=== PATIENT | male | born 1960 | race Hispanic/Latino ===

== ENCOUNTER 2016-10-31 23:20 | Inpatient (IN) | payer MEDICARE ==
[2016-11-01] MEDS ORDERED: ZOFRAN IV ONE (00:24)
[2016-11-01] MEDS ORDERED: PEPCID IV ONE (00:24)
[2016-11-01] MEDS ORDERED: APRESOLINE IV ONE (00:24)
[2016-11-01 00:26] LABS: Eosinophils % (Auto) 1.9 % (0.0-4.3); Hematocrit 48.3 % (35.5-45.6); Hemoglobin 16.3 gm/dl (11.8-15.2); Mean Corpuscular HGB Conc 34 % (32-34); Mean Corpuscular Hemoglobin 31 pg (28-32); Mean Corpuscular Volume 91 fl (84-94); Platelet Count 259 K/mm3 (140-440); Red Blood Count 5.31 M/mm3 (3.65-5.03); Red Cell Distribution Width 13.6 % (13.2-15.2); White Blood Count 8.1 K/mm3 (4.5-11.0)
[2016-11-01] MEDS ORDERED: NITROSTAT SL PRN (00:26)
--- NOTE | 2016-11-01 00:27 | Emergency Department Report ---
ED Chest Pain HPI - General Chief Complaint: Chest Pain Stated Complaint: CHEST PAIN Time Seen by Provider: 11/01/16 00:17 Source: patient, EMS (ems notes not available at time of chart dictation) Mode of arrival: Stretcher Limitations: No Limitations - History of Present Illness Initial Comments: Primary care real estate inspector: Sarah wisdom; Dr Baltazar Past medical history: Atrial fibrillation, heart disease, ischemic cardiomyopathy, high cholesterol, hypertension. Multiple stents. This is a 56-year-old male. He is previously unknown to me. He presents to the ER complaining of chest pain. The chest pain is central, involving the left upper extremity. Positive nausea, positive diaphoresis. It has mostly resolved. He reports compliance with medications. Reports a negative nuclear stress test December 2015. There is no leg pain. There is no leg swelling. No recent trips greater than 4 hours. No recent hospital admissions. No hematemesis. No bright red blood per rectum. No association with food. No recent stressful events. MD Complaint: chest pain -: Sudden Onset: during rest Pain Location: substernal Pain Radiation: LUE Severity: moderate Consistency: now resolved Improves With: nitroglycerin re: nausea Aspirin use within the Past 7 Days: (1) Yes - Related Data On Oral Contraceptives: No Home Medications Medication Instructions Recorded Confirmed Last Taken Aspirin [Aspirin TAB] 325 mg PO QDAY 11/01/16 11/01/16 10/31/16 Carvedilol [Coreg] 25 mg PO BID 11/01/16 11/01/16 10/31/16 Gemfibrozil [Lopid] 600 mg PO BID 11/01/16 11/01/16 10/31/16 Hydrochlorothiazide [HCTZ] 25 mg PO QDAY 11/01/16 11/01/16 10/31/16 ISOSORBIDE MONOnitrate [Imdur ER] 60 mg PO BID 11/01/16 11/01/16 10/31/16 Losartan [Cozaar] 50 mg PO QDAY 11/01/16 11/01/16 10/31/16 Niacin [Niaspan ER] 1,000 mg PO QHS 11/01/16 11/01/16 Unknown Nitroglycerin [Nitrostat] 0.4 mg SL Q5M PRN 11/01/16 11/01/16 10/31/16 [place]-3S/Dha/Epa/Fish Oil [[place]-3 1 each PO QDAY 11/01/16 11/01/16 10/31/16 Fish Oil 1,000 mg Sfgl] Simvastatin [Zocor TAB] 80 mg PO QHS 11/01/16 11/01/16 Unknown Sotalol HCl [Sotalol] 120 mg PO BID 11/01/16 11/01/16 10/31/16 Allergies Allergy/AdvReac Type Severity Reaction Status Date / Time clopidogrel bisulfate Allergy Rash Verified 06/23/13 11:46 [From Plavix] Sulfa (Sulfonamide Allergy Anaphylaxis Verified 06/23/13 11:47 Antibiotics) nitroglycerin AdvReac Dizziness Verified 06/23/13 11:47 PARAMJIT score - Paramjit Score Age > 65: (0) No Aspirin use within the Past 7 Days: (1) Yes 3 or more CAD Risk Factors: (1) Yes 2 or more Angina events in past 24 hrs: (0) No Known CAD with more than 50% Stenosis: (1) Yes Elevated Cardiac Markers: (0) No ST Deviation Greater than 0.5mm: (0) No PARAMJIT Score: 3 ED Review of Systems ROS: Stated complaint: CHEST PAIN Other details as noted in HPI Constitutional: diaphoresis, malaise Eyes: denies: vision change ENT: denies: epistaxis Respiratory: see HPI Cardiovascular: chest pain Gastrointestinal: denies: vomiting Genitourinary: denies: urgency, dysuria Musculoskeletal: denies: back pain Skin: denies: lesions Neurological: denies: headache, weakness Psychiatric: denies: anxiety ED Past Medical Hx - Past Medical History Hx Hypertension: Yes Hx Heart Attack/AMI: Yes - Surgical History Hx Coronary Stent: Yes (x6) Hx Pacemaker: Yes Hx Internal Defibrillator: Yes - Social History Smoking Status: Former Smoker Substance Use Type: None - Medications Home Medications: Home Medications Medication Instructions Recorded Confirmed Last Taken Type Aspirin [Aspirin TAB] 325 mg PO QDAY 11/01/16 11/01/16 10/31/16 History Carvedilol [Coreg] 25 mg PO BID 11/01/16 11/01/16 10/31/16 History Gemfibrozil [Lopid] 600 mg PO BID 11/01/16 11/01/16 10/31/16 History Hydrochlorothiazide [HCTZ] 25 mg PO QDAY 11/01/16 11/01/16 10/31/16 History ISOSORBIDE MONOnitrate [Imdur ER] 60 mg PO BID 11/01/16 11/01/16 10/31/16 History Losartan [Cozaar] 50 mg PO QDAY 11/01/16 11/01/16 10/31/16 History Niacin [Niaspan ER] 1,000 mg PO QHS 11/01/16 11/01/16 Unknown History Nitroglycerin [Nitrostat] 0.4 mg SL Q5M PRN 11/01/16 11/01/16 10/31/16 History [place]-3S/Dha/Epa/Fish Oil [[place]-3 1 each PO QDAY 11/01/16 11/01/16 10/31/16 History Fish Oil 1,000 mg Sfgl] Simvastatin [Zocor TAB] 80 mg PO QHS 11/01/16 11/01/16 Unknown History Sotalol HCl [Sotalol] 120 mg PO BID 11/01/16 11/01/16 10/31/16 History ED Physical Exam - General Limitations: No Limitations General appearance: alert, in no apparent distress - Head Head exam: Present: atraumatic, normocephalic - Eye Eye exam: Present: normal appearance, PERRL, EOMI. Absent: nystagmus - ENT ENT exam: Present: normal exam, normal orophraynx, mucous membranes moist, normal external ear exam - Neck Neck exam: Present: normal inspection, full ROM. Absent: tenderness, meningismus - Respiratory Respiratory exam: Present: normal lung sounds bilaterally. Absent: respiratory distress, wheezes, rales, rhonchi, stridor, prolonged expiratory - Cardiovascular Cardiovascular Exam: Present: regular rate, normal rhythm, normal heart sounds. Absent: bradycardia, tachycardia, irregular rhythm, systolic murmur, diastolic murmur, rubs, gallop - GI/Abdominal GI/Abdominal exam: Present: soft, normal bowel sounds. Absent: distended, tenderness, guarding, rebound, rigid, pulsatile mass - Rectal Rectal exam: Present: deferred - Extremities Exam Extremities exam: Present: normal inspection, full ROM, normal capillary refill , other (patient has equal pulses in 4 extremities. There is no palpable cord. There is a negative Homans sign.). Absent: tenderness, pedal edema, joint swelling, calf tenderness - Back Exam Back exam: Present: normal inspection, full ROM. Absent: tenderness, CVA tenderness (R), CVA tenderness (L), muscle spasm, paraspinal tenderness, vertebral tenderness - Neurological Exam Neurological exam: Present: alert, oriented X3, normal gait, other (Extraocular movements intact. Tongue midline. No facial droop. Facial sensation intact to light touch in the V1, V2, V3 distribution bilaterally. 5 and 5 strength in 4 extremities.. Sensation is intact to light touch in 4 extremities.). Absent : motor sensory deficit - Psychiatric Psychiatric exam: Present: normal affect, normal mood - Skin Skin exam: Present: warm, dry, intact, normal color. Absent: rash ED Course Vital Signs 10/31/16 11/01/16 11/01/16 23:45 01:05 01:11 Temperature 98.1 F Pulse Rate 78 80 78 Respiratory 18 16 Rate Blood Pressure 155/97 166/77 Blood Pressure 166/77 [Left] O2 Sat by Pulse 96 99 Oximetry 11/01/16 11/01/16 03:00 05:00 Temperature Pulse Rate 71 52 L Respiratory 16 16 Rate Blood Pressure Blood Pressure 161/88 155/95 [Left] O2 Sat by Pulse 96 96 Oximetry - Reevaluation(s) Reevaluation #1: 11/01/16 02:06 Differential diagnosis: Acute coronary syndrome, pneumonia, GERD, gastritis, costochondritis, pulmonary embolus Assessment and plan: 56-year-old male with numerous cardiovascular risk factors , with concerning chest pain. No pulmonary embolus or DVT risk factors, low risk by well's criteria, negative d-dimer. EKG morphologically abnormal, appears essentially unchanged when compared to prior EKG. He is essentially pain-free at this time. Patient will be admitted for cardiac risk stratification. Case is discussed with the Hospital physician, Dr. Garcia, who accepts the patient to her service. ED Medical Decision Making - Lab Data Result diagrams: 11/01/16 00:14 11/01/16 00:14 Vital Signs 10/31/16 11/01/16 11/01/16 23:45 01:05 01:11 Temperature 98.1 F Pulse Rate 78 80 78 Respiratory 18 16 Rate Blood Pressure 155/97 166/77 Blood Pressure 166/77 [Left] O2 Sat by Pulse 96 99 Oximetry Labs 11/01/16 11/01/16 11/01/16 00:14 00:14 00:30 WBC 8.1 RBC 5.31 H Hgb 16.3 H Hct 48.3 H MCV 91 MCH 31 MCHC 34 RDW 13.6 Plt Count 259 Lymph % (Auto) 31.1 [place] % (Auto) 10.6 H Eos % (Auto) 1.9 Baso % (Auto) 1.0 Lymph # 2.5 [place] # 0.9 H Eos # 0.2 Baso # 0.1 Seg Neutrophils % 55.4 Seg Neutrophils # 4.5 PT 12.9 INR 0.98 D-Dimer < 135 Sodium 139 Potassium 4.0 Chloride 103.6 Carbon Dioxide 21 L Anion Gap 18 BUN 11 Creatinine 0.6 L Estimated GFR > 60 BUN/Creatinine Ratio 18.33 Glucose 153 H Calcium 9.3 Troponin T < 0.010 - EKG Data 11/01/16 02:08 normal sinus, 71 bpm, left axis deviation, already progression, premature ventricular contractions, abnormal EKG, not morphologically consistent with STEMI, appears unchanged from prior EKG from May 2013. - Radiology Data Radiology results: image reviewed interpreted by me: X-ray of the chest demonstrates cardiomegaly, left-sided AICD device. Critical care attestation.: If time is entered above; I have spent that time in minutes in the direct care of this critically ill patient, excluding procedure time. ED Disposition Clinical Impression: Chest pain Disposition: OP ADMITTED IP TO THIS HOSP Is pt being admited?: Yes Does the pt Need Aspirin: Yes Condition: Good
[2016-11-01 00:49] LABS: Anion Gap 18 mmol/L; BUN/Creatinine Ratio 18.33; Blood Urea Nitrogen 11 mg/dL (9-20); Calcium 9.3 mg/dL (8.4-10.2); Carbon Dioxide 21 mmol/L (22-30); Chloride 103.6 mmol/L (98-107); Glucose 153 mg/dL (75-100); Sodium 139 mmol/L (137-145)
[2016-11-01 00:51] LABS: INR 0.98 (0.87-1.13)
[2016-11-01] MEDS ORDERED: BABY ASPIRIN PO ONE (02:08)
--- NOTE | 2016-11-01 03:04 | Admit Criteria Form ---
Admission Criteria Documentation: CARDIOLOGY GRG Clinical Indications for Admission to Inpatient Care ( Place 'X' for any and all applicable criteria): Hospital admission is needed for appropriate care of the patient because of ANY ONE of the following (1): [ ] I. Hemodynamic instability as indicated by ALL of the following (1)(2)(3) (4)(5) [ ]a) Vital signs or other findings not as expected for chronic patient condition or baseline [ ]b) Instability indicated by ANY ONE of the following: [ ]i) Hypotension [ ]ii) Symptomatic Tachycardia unresponsive to treatment ( e.g., analgesia, fluids, sedation as indicated) [ ]iii) Inadequate perfusion indicated by ANY ONE of the following: [ ] 1) Lactic acidosis (> 2 mmol/L) [ ] 2) New abnormal capillary refill (> 3 seconds) [ ] 3) Reduced urine output [ ] 4) New altered mental status [ ]iv) Orthostatic vital sign changes unresponsive to treatment (e.g., fluids) [ ]v) IV inotropic or vasopressor medication required to maintain adequate blood pressure or perfusion [ ] II. Severe heart failure as indicated by ANY ONE of the following(17)(18) [ ]a) Respiratory distress [ ]b) Hypotension [ ]c) Anasarca (refractory to outpatient therapy) [ ]d) Cardiac arrhythmias of immediate concern [ ]e) Myocardial ischemia [ ] III. Cardiac arrhythmias or findings of immediate concern indicated by ANY ONE of the following (19)(20): [ ] a) Heart rhythms that are inherently dangerous or unstable indicated by ANY ONE of the following (21)(22)(23): [ ] i) Resuscitated ventricular fibrillation or cardiac arrest [ ] ii) Ventricular escape rhythm [ ] iii) Sustained ventricular tachycardia (30 seconds or more of ventricular rhythm at greater than 100 beats per minute) [ ] iv) Nonsustained ventricular tachycardia and ANY ONE of the following: [ ] 1) Suspected cardiac ischemia as cause or consequence of ventricular tachycardia [ ] 2) In setting of acute myocarditis [ ] b) Unstable cardiac conduction defects indicated by ANY ONE of the following(23)(24)(25) [ ] i) Type II second-degree atrioventricular block [ ]ii) Third-degree atrioventricular block [ ]iii) New-onset left bundle branch block with suspected myocardial ischemia [ ]c) Any heart rhythm and ANY ONE of the following (21)(22)(26)(27) (28) [ ] i) Continuous long-term ECG monitoring needed (e.g., initiation of drug requiring monitoring for more than 24 hours) [ ] ii) Patient has automatic implanted cardioverter defibrillator that is repeatedly firing, malfunctioning, or in need of immediate adjustment of settings beyond the scope of ambulatory or observation care [ ]d) Heart rhythms of concern due to ANY ONE of the following: [ ] i) Hypotension [ ] ii) Respiratory distress [ ] iii) Association with other significant symptoms (e.g., bradycardia with syncope or ongoing dizziness, supraventricular tachycardia with chest pain (14)(15)(17) [ ] IV. Monitoring for cardiac contusion beyond the scope of observation care needed [A](30)(31)(32) [ ] V. Surgical or device complication (e.g., valve replacement complication , pacemaker dysfunction) (35)(41)(44)(45)(46) [ ] . Inpatient palliative care needed. [B](49) Also use Inpatient Palliative Care Criteria [ ] VII. Nonbacterial thrombotic (marantic) endocarditis (36)(43)(47)(48) [X ] VIII. Cardiology condition, symptom, or finding for which emergency and observation care has failed or are not considered appropriate. [ ] IX. Acute valvular disease requiring inpatient as indicated by ANY ONE of the following (41) [ ]a) Acute valvular regurgitation (42) [ ]b) Noninfectious valvulitis (43) [ ]c) Obstructive valve thrombosis [ ]d) Paravalvular leak [ ]e) Other significant valvular disorder remaining after emergency or observation level of care (as appropriate) [ ]X. Pericardial disease requiring inpatient treatment as indicated by ANY ONE of the following (33)(34)(35)(36)(37) [ ]a) Suspected tamponade (38)(39)(40) [ ]b) Hemopericardium [ ]c) Other significant pericardial disorder remaining after emergency or observation level of care (as appropriate) [ ] XI. Cardiac ischemia beyond scope of emergency and observation care. [ ] XII. Hypertension requiring inpatient treatment as indicated by ANY ONE of the following (6)(7)(8) [ ]a) SBP greater than 220 mm Hg or DBP greater than 120 mmHg despite treatment [ ]b) SBP greater than 140 mm Hg or DBP greater than 100 mm Hg with evidence of acute end organ damage as indicated by ANY ONE of the following [ ] i) Altered mental status [ ] ii) Acute renal failure as indicated by new onset of ANY ONE of the following (9)(10)(11)(12)(13) [ ]1) 3-fold rise in serum creatinine from baseline [ ]2) Serum creatinine greater than 4 mg/dL ( 354 micromoles/L) with acute rise greater than 0.5 mg/dL (44.2 micromoles/L) [ ]3) Reduction of more than 75% in estimated glomerular filtration rate from baseline [ ]4) Estimated glomerular filtration rate less than 35 mL/min/1.73m2 (0.59 mL/sec/1.73m2) in child up to 18 years of age [ ]5) Cessation of urine output indicated by ALL of the following [ ]A. Adequate volume status [ ]B. Inadequate urine output as indicated by ANY ONE of the following [ ]a. Urine output less than 0.3 mL/kg/hr for 24 hours [ ]b. Anuria (urine output less than 0.1 mL/kg/hr) for 12 hours [ ] iii) Aortic dissection [ ] iv) Myocardial Ischemia [ ] v) Left ventricular heart failure [ ]vi) Retinal Hemorrhage [ ]vii) Other significant finding [ ]c) Hypertension in child requiring inpatient treatment as indicated by ALL of the following(14)(15)(16) [ ] i) Outpatient treatment not effective, not available, or not appropriate [ ]ii) SBP or DBP greater than 95th percentile for age [ ]iii) Evidence of acute end organ damage as indicated by ANY ONE of the following [ ]1) Altered mental status [ ]2) Acute renal failure as indicated by new onset of ANY ONE of the following(9)(10)(11)(12)(13) [ ]A. 3-fold rise in serum creatinine from baseline [ ]B. Serum creatinine greater than 4 mg/dL (354 micromoles/L) with acute rise greater than 0.5 mg/dL (44.2 micromoles/L) [ ]C. Reduction of more than 75% in estimated glomerular filtration rate from baseline [ ]D. Estimated glomerular filtration rate less than 35 mL/min/1.73m2 (0.59 mL/sec/1.73m2) in child up to 18 years of age [ ]E. Cessation of urine output indicated by ALL of the following [ ]a. Adequate volume status [ ]b. Inadequate urine output as indicated by ANY ONE of the following [ ]i) Urine output less than 0.3 mL/kg/hr for 24 hours [ ]ii) Anuria ( urine output less than 0.1 mL/kg/hr) for 12 hours [ ]3) Severe headache [ ]4) Visual disturbance [ ]5) Retinal hemorrhage [ ]6) Other significant finding [ ]XIII. Complications of transplanted heart indicated by ANY ONE of the following(61): [ ]a) Acute graft rejection requiring inpatient management (eg, intravenous immunosuppression)(62)(63) [ ]b) Acute graft heart failure indicated by ANY ONE of the following(64): [ ]i) Hemodynamic instability [ ]ii) Cardiac arrhythmias of immediate concern [ ]iii) Pulmonary edema that is very severe (eg, mechanical ventilation needed, imminent or likely, need for 100% oxygen to keep oxygen saturation above 90%) [ ]iv) Pulmonary edema that is persistent as indicated by ALL of the following: [ ]1) New need for oxygen therapy to keep oxygen saturation above 90% (or increased FiO2 need from baseline) [ ]2) Has not improved sufficiently with emergency department or observation care IV diuretics or other heart failure treatments[E] [ ]v) Altered mental status that is severe or persistent [ ]vi) Increased creatinine (new on laboratory test) with reduction of more than 50% in estimated glomerular filtration rate from baseline [ ]vii) Progressively (ongoing) rising creatinine (known from past laboratory test) with reduction of more than 25% in estimated glomerular filtration rate from baseline [ ]viii) Acute renal failure [ ]ix) Acute peripheral ischemia (eg, examination shows pulseless, cool, mottled, or cyanotic extremity) [ ]x) Pulmonary artery catheter monitoring needed [ ]xi) Other sign or symptom of heart failure requiring inpatient treatment (ie, too severe or not responsive to outpatient and observation care treatment) [ ]c) Infection requiring inpatient management (eg, Hemodynamic instability, need for intravenous antimicrobial treatment)(66)(67)(68)(69)(70) [ ]d) Cardiac allograft vasculopathy requiring inpatient management ( eg evidence of cardiac ischemia)(71) [ ]e) Other complication of transplanted heart (eg, stroke, severe pulmonary hypertension, severe valvular dysfunction) requiring inpatient management(72) The original [facility] [employer] content created by [email or web address] has been revised. The portions of the content which have been revised are identified through the use of italic text or in bold, and [facility] has neither reviewed nor approved the modified material. All other unmodified content is copyright [facility] [email or web address]. Please see references footnoted in the original [facility] [email or web address] edition 2016 Admission Criteria Met: Yes
[2016-11-01] MEDS ORDERED: MILK OF MAGNESIA PO PRN (03:13)
[2016-11-01] MEDS ORDERED: MORPHINE IV PRN (03:13)
[2016-11-01] MEDS ORDERED: DULCOLAX PR PRN (03:13)
[2016-11-01] MEDS ORDERED: ZOFRAN IV PRN (03:13)
[2016-11-01] MEDS ORDERED: TYLENOL PO PRN (03:13)
--- NOTE | 2016-11-01 03:39 | History and Physical Report ---
History of Present Illness Date of examination: 11/01/16 History of present illness: 56-year-old man with a history of hypertension, hyperlipidemia, coronary artery disease, CHF, A. fib discussed emergency room with complaints of chest pain. Pain is in the epigastric area which she described as someone stepping on his chest, constant, intensity 8/10, radiating to the left arm. He cannot identify exacerbating or relieving factors. He admits to nausea, diaphoresis, no shortness breath or palpitation. He had a stress test done in 2016 Patient denies cough, abdominal pain, hematochezia, dysuria, frequency, focal weakness, dysarthria, fever chills, polydipsia polyuria, hot or cold intolerance , easy bruisability, or rash or bleeding from mucosal membrane, rhinorrhea, epistaxis, earache, tinnitus, blurry vision, eye discharge, anxiety, depression. Other review of systems negative PAST SURGICAL HISTORY: Pacemaker, AICD SOCIAL HISTORY: Denies alcohol, tobacco, drugs FAMILY HISTORY: Hypertension, coronary artery disease Medications and Allergies Allergies Allergy/AdvReac Type Severity Reaction Status Date / Time clopidogrel bisulfate Allergy Rash Verified 06/23/13 11:46 [From Plavix] Sulfa (Sulfonamide Allergy Anaphylaxis Verified 06/23/13 11:47 Antibiotics) nitroglycerin AdvReac Dizziness Verified 06/23/13 11:47 Home Medications Medication Instructions Recorded Confirmed Last Taken Type Aspirin [Aspirin TAB] 325 mg PO QDAY 11/01/16 11/01/16 10/31/16 History Carvedilol [Coreg] 25 mg PO BID 11/01/16 11/01/16 10/31/16 History Gemfibrozil [Lopid] 600 mg PO BID 11/01/16 11/01/16 10/31/16 History Hydrochlorothiazide [HCTZ] 25 mg PO QDAY 11/01/16 11/01/16 10/31/16 History ISOSORBIDE MONOnitrate [Imdur ER] 60 mg PO BID 11/01/16 11/01/16 10/31/16 History Losartan [Cozaar] 50 mg PO QDAY 11/01/16 11/01/16 10/31/16 History Niacin [Niaspan ER] 1,000 mg PO QHS 11/01/16 11/01/16 Unknown History Nitroglycerin [Nitrostat] 0.4 mg SL Q5M PRN 11/01/16 11/01/16 10/31/16 History [place]-3S/Dha/Epa/Fish Oil [[place]-3 1 each PO QDAY 11/01/16 11/01/16 10/31/16 History Fish Oil 1,000 mg Sfgl] Simvastatin [Zocor TAB] 80 mg PO QHS 11/01/16 11/01/16 Unknown History Sotalol HCl [Sotalol] 120 mg PO BID 11/01/16 11/01/16 10/31/16 History Active Meds: Active Medications Acetaminophen (Tylenol) 650 mg PO Q4H PRN PRN Reason: Pain MILD(1-3)/Fever >100.5/GARCIA Aspirin (Aspirin) 325 mg PO QDAY JUDIT Bisacodyl (Dulcolax) 10 mg [place] QDAY PRN PRN Reason: Constipation unrelieved by MOM Enoxaparin Sodium (Lovenox) 40 mg SUB-Q QDAY JUDIT Magnesium Hydroxide (Milk Of Magnesia) 30 ml PO Q4H PRN PRN Reason: Constipation Morphine Sulfate (Morphine) 2 mg IV Q4H PRN PRN Reason: Pain, Moderate (4-6) Nitroglycerin (Nitrostat) 0.4 mg SL .Q5MIN PRN PRN Reason: Chest Pain Last Admin: 11/01/16 01:05 Dose: 0.4 mg Ondansetron HCl (Zofran) 4 mg IV Q8H PRN PRN Reason: N/V unrelieved by Reglan Exam - Physical Exam Narrative exam: Gen. appearance: Patient lying in bed, no apparent distress HEENT: Normocephalic, atraumatic, pupils equally round and reactive to light, extraocular movement intact, and no sclericterus,. No JVD or thyromegaly or nodule,neck supple, no carotid bruit ,mucous membranes moist, no exudate or erythema Heart: S1, S2, regular rate and rhythm Lungs: Clear to auscultation bilaterally, breathing comfortable Abdomen: Positive bowel sounds, nontender, nondistended, no organomegaly Extremity: No edema, cyanosis, clubbing Skin: No rash, nodules, warm, dry Neuro: Oriented 3, cranial nerves II-12 intact, speech is fluent, motor and sensory intact - Constitutional Vitals: Temp Pulse Resp BP Pulse Ox 98.1 F 78 16 166/77 99 10/31/16 23:45 11/01/16 01:11 11/01/16 01:11 11/01/16 01:11 11/01/16 01:11 Results - Labs CBC & Chem 7: 11/01/16 00:14 11/01/16 00:14 Labs: Abnormal lab results 11/01/16 11/01/16 Range/Units 00:14 00:14 RBC 5.31 H (3.65-5.03) M/mm3 Hgb 16.3 H (11.8-15.2) gm/dl Hct 48.3 H (35.5-45.6) % [place] % (Auto) 10.6 H (0.0-7.3) % [place] # 0.9 H (0.0-0.8) K/mm3 Carbon Dioxide 21 L (22-30) mmol/L Creatinine 0.6 L (0.8-1.5) mg/dL Glucose 153 H (75-100) mg/dL - Imaging and Cardiology EKG: image reviewed Chest x-ray: image reviewed Assessment and Plan Unstable angina Coronary artery disease CHF, stable A. fib Hypertension hyperlipidemia Admit to medicine Check cardiac enzymes, consult cardiology, start IV morphine Continue outpatient medications, start DVT prophylaxis
--- NOTE | 2016-11-01 07:18 | XRay Report ---
Single view chest: History: Chest pain, shortness of breath. Findings: Cardiomegaly. Trachea is midline. Stable pacemaker. No consolidation, pneumothorax. Left CP angle obscured by enlarged heart. Impression: No definite acute cardiopulmonary findings.
[2016-11-01 07:29] LABS: Creatine Kinase MB 2.8 ng/mL (0.0-4.0)
[2016-11-01 07:38] LABS: Creatine Kinase 125 units/L (55-170)
[2016-11-01] MEDS: COZAAR PO SCH (09:02)
[2016-11-01] MEDS: BETAPACE PO SCH ×2 (09:03→21:37)
[2016-11-01] MEDS: FISH OIL PO SCH (09:05)
[2016-11-01] MEDS: COREG PO SCH ×2 (09:05→21:38)
[2016-11-01] MEDS: LOVENOX SUB-Q SCH (09:06)
[2016-11-01] MEDS: HCTZ PO SCH (09:06)
[2016-11-01] MEDS: LOPID PO SCH ×2 (09:07→21:38)
[2016-11-01] MEDS ORDERED: ASPIRIN PO SCH (10:00)
[2016-11-01] MEDS ORDERED: FISH OIL PO SCH (10:00)
[2016-11-01] MEDS ORDERED: DHA PO SCH (10:00)
[2016-11-01] MEDS ORDERED: OMEGA PO SCH (10:00)
[2016-11-01] MEDS ORDERED: EPA PO SCH (10:00)
[2016-11-01] MEDS ORDERED: SOTALOL HCL 120 MG PO SCH (10:00)
--- NOTE | 2016-11-01 10:42 | Consultation ---
History of Present Illness Consult date: 11/01/16 Consult reason: chest pain History of present illness: This is a 56yr old male with an extensive cardiac history. He has a history of coronary artery disease with multiple prior stents. He has a history of paroxysmal atrial fibrillation with prior ablation procedure. He is taking sotalol for suppression. Patient is considered a poor candidate for anticoagulation due to prior GI bleed and is currently treated with aspirin. He has an ischemic cardiomyopathy with an indwelling cardiac defibrillator. Generator replaced 2012. Routine ICD interrogations have revealed normal device function. No recent appropriate or inappropriate device therapies. Less than a year ago he had a negative thallium stress at [facility]. Left ventricular systolic function 20-25% on echocardiogram done 2014. Patient is now admitted with chest pain. He associates chest pain with shortness of breath, nausea and diaphoresis. He denies palpitations. There was no AICD discharge. There was no pre-syncope or syncope. ECG done in the ED shows a sinus rhythm with premature ventricular contractions. Cardiac enzymes are unremarkable with a CK/MB of 2.8 and ratio of 2.2. Cardiac consultation requested for chest pain evaluation. Medications and Allergies Allergies Allergy/AdvReac Type Severity Reaction Status Date / Time clopidogrel bisulfate Allergy Rash Verified 06/23/13 11:46 [From Plavix] Sulfa (Sulfonamide Allergy Anaphylaxis Verified 06/23/13 11:47 Antibiotics) nitroglycerin AdvReac Dizziness Verified 06/23/13 11:47 Home Medications Medication Instructions Recorded Confirmed Last Taken Type Aspirin [Aspirin TAB] 325 mg PO QDAY 11/01/16 11/01/16 10/31/16 History Carvedilol [Coreg] 25 mg PO BID 11/01/16 11/01/16 10/31/16 History Gemfibrozil [Lopid] 600 mg PO BID 11/01/16 11/01/16 10/31/16 History Hydrochlorothiazide [HCTZ] 25 mg PO QDAY 11/01/16 11/01/16 10/31/16 History ISOSORBIDE MONOnitrate [Imdur ER] 60 mg PO BID 11/01/16 11/01/16 10/31/16 History Losartan [Cozaar] 50 mg PO QDAY 11/01/16 11/01/16 10/31/16 History Niacin [Niaspan ER] 1,000 mg PO QHS 11/01/16 11/01/16 Unknown History Nitroglycerin [Nitrostat] 0.4 mg SL Q5M PRN 11/01/16 11/01/16 10/31/16 History [place]-3S/Dha/Epa/Fish Oil [[place]-3 1 each PO QDAY 11/01/16 11/01/16 10/31/16 History Fish Oil 1,000 mg Sfgl] Simvastatin [Zocor TAB] 80 mg PO QHS 11/01/16 11/01/16 Unknown History Sotalol HCl [Sotalol] 120 mg PO BID 11/01/16 11/01/16 10/31/16 History Active Meds: Active Medications Acetaminophen (Tylenol) 650 mg PO Q4H PRN PRN Reason: Pain MILD(1-3)/Fever >100.5/GARCIA Aspirin (Aspirin) 325 mg PO QDAY [facility] Bisacodyl (Dulcolax) 10 mg VA QDAY PRN PRN Reason: Constipation unrelieved by MOM Carvedilol (Coreg) 25 mg PO BID [facility] Last Admin: 11/01/16 09:05 Dose: 25 mg Enoxaparin Sodium (Lovenox) 40 mg SUB-Q QDAY [facility] Last Admin: 11/01/16 09:06 Dose: 40 mg Fish Oil (Fish Oil) 1,000 mg PO QDAY [facility] Last Admin: 11/01/16 09:05 Dose: 1,000 mg Gemfibrozil (Lopid) 600 mg PO BID [facility] Last Admin: 11/01/16 09:07 Dose: 600 mg Hydrochlorothiazide (Hctz) 25 mg PO QDAY [facility] Last Admin: 11/01/16 09:06 Dose: 25 mg Losartan Potassium (Cozaar) 50 mg PO QDAY [facility] Last Admin: 11/01/16 09:02 Dose: 50 mg Magnesium Hydroxide (Milk Of Magnesia) 30 ml PO Q4H PRN PRN Reason: Constipation Morphine Sulfate (Morphine) 2 mg IV Q4H PRN PRN Reason: Pain, Moderate (4-6) Niacin (Niaspan Er) 1,000 mg PO [facility] Nitroglycerin (Nitrostat) 0.4 mg SL .Q5MIN PRN PRN Reason: Chest Pain Last Admin: 11/01/16 01:05 Dose: 0.4 mg Ondansetron HCl (Zofran) 4 mg IV Q8H PRN PRN Reason: N/V unrelieved by Reglan Simvastatin (Zocor) 80 mg PO QHS [facility] Sotalol HCl (Betapace) 120 mg PO BID [facility] Last Admin: 11/01/16 09:03 Dose: 120 mg Physical Examination Vital Signs Temp Pulse Resp BP Pulse Ox 98.1 F 78 18 155/97 96 10/31/16 23:45 10/31/16 23:45 10/31/16 23:45 10/31/16 23:45 10/31/16 23:45 General appearance: no acute distress HEENT: Positive: PERRL Neck: Positive: trachea midline Cardiac: Positive: Reg Rate and Rhythm, Systolic Murmur Lungs: Positive: Decreased Breath Sounds Results 11/01/16 00:14 11/01/16 00:14 Cardiac Enzymes 11/01/16 Range/Units 06:36 CK-MB (CK-2) 2.8 (0.0-4.0) ng/mL Assessment and Plan Chest pain Hx of coronary artery disease plavix allergy negative thallium stress at [facility] 12/2015 Hx of paroxysmal atrial fibrillation prior ablation. He is taking sotalol for suppression patient is considered a poor candidate for anticoagulation due to prior GI bleed and is currently treated with aspirin. Hx of ischemic cardiomyopathy, 20-25% Presence of indwelling cardiac defibrillator generator replaced 2012. Routine ICD interrogations have revealed normal device function. No recent appropriate or inappropriate device therapies. Recommendation: Echo Will proceed with a left cardiac cath for further cardiac evaluation.
[2016-11-01 13:37] LABS: Creatine Kinase MB 2.8 ng/mL (0.0-4.0)
[2016-11-01 13:40] LABS: Creatine Kinase 110 units/L (55-170)
--- NOTE | 2016-11-01 15:53 | Event Note ---
Date: 11/02/16 pt seen and examined, will cont current mx amd plan as dictated in h and P. Plan for cardiac cath tomorrow.
[2016-11-01] MEDS ORDERED: NIACIN 1000 MG PO SCH (22:00)
[2016-11-01] MEDS ORDERED: ZOCOR PO SCH (22:00)
[2016-11-01] MEDS ORDERED: NIASPAN ER PO SCH (22:00)
[2016-11-02 05:41] LABS: Eosinophils % (Auto) 2.1 % (0.0-4.3); Hematocrit 49.9 % (35.5-45.6); Hemoglobin 16.4 gm/dl (11.8-15.2); Mean Corpuscular HGB Conc 33 % (32-34); Mean Corpuscular Hemoglobin 30 pg (28-32); Mean Corpuscular Volume 92 fl (84-94); Platelet Count 238 K/mm3 (140-440); Red Blood Count 5.45 M/mm3 (3.65-5.03); Red Cell Distribution Width 13.5 % (13.2-15.2)
[2016-11-02 05:57] LABS: INR 1.03 (0.87-1.13)
[2016-11-02 06:03] LABS: Anion Gap 18 mmol/L; BUN/Creatinine Ratio 17.14; Blood Urea Nitrogen 12 mg/dL (9-20); Calcium 9.3 mg/dL (8.4-10.2); Carbon Dioxide 24 mmol/L (22-30); Chloride 98.7 mmol/L (98-107); Glucose 124 mg/dL (75-100); Potassium 4.2 mmol/L (3.6-5.0); Sodium 136 mmol/L (137-145)
[2016-11-02] MEDS ORDERED: NACL 0.9% 500 ML 500 ML ONE (06:23)
[2016-11-02] MEDS ORDERED: ASPIRIN ONE (07:28)
[2016-11-02] MEDS: ASPIRIN PO SCH ×2 (07:32→10:02)
[2016-11-02] MEDS ORDERED: HEPARIN/NS 5000 UNIT/500ML(CATH LAB) 1,000 ML IR ONE (08:23)
[2016-11-02] MEDS ORDERED: SUBLIMAZE ONE (08:23)
[2016-11-02] MEDS ORDERED: VERSED ONE (08:23)
[2016-11-02] MEDS ORDERED: CALAN ONE (08:23)
[2016-11-02] MEDS ORDERED: XYLOCAINE 2% INFILTRATI ONE (08:23)
[2016-11-02] MEDS ORDERED: HEPARIN 10,000 UNITS/10 ML ONE (08:23)
[2016-11-02] MEDS ORDERED: NITROGLYCERIN SYRINGE 3 ML ONE (08:24)
--- NOTE | 2016-11-02 11:49 | Progress Note ---
Assessment and Plan Chest pain Cath showing significant ostial/proximal LAD disease Unable to engage the right coronary artery with multiple catheters RCA is known to have an unusual take off from prior studies (anterior and towards the left cusp) No collaterals from the left to the right circulation ? RCA occluded Hx of coronary artery disease plavix allergy negative thallium stress at [facility] 12/2015 Hx of paroxysmal atrial fibrillation prior ablation. He is taking sotalol for suppression patient is considered a poor candidate for anticoagulation due to prior GI bleed and is currently treated with aspirin. Hx of ischemic cardiomyopathy, 20-25% Presence of indwelling cardiac defibrillator generator replaced 2012. Routine ICD interrogations have revealed normal device function. No recent appropriate or inappropriate device therapies. Recommendation: Patient will be recommended for transfer to [facility] for a robotic MEREDITH to LAD and a coronary CTA of his RCA Discussed with Dr Ko Subjective Date of service: 11/02/16 Principal diagnosis: Unstable angina Interval history: Patient underwent a cardiac cath this morning - no complications Objective Vital Signs Temp Pulse Pulse Resp BP BP Pulse Ox 11/02/16 10:41 60 11/02/16 06:32 98.0 F 57 L 20 135/79 11/02/16 05:00 56 L 11/02/16 04:25 98.0 F 99 H 20 133/83 94 11/02/16 01:45 97.4 F L 64 20 126/80 95 11/01/16 21:38 64 135/85 11/01/16 21:30 98.2 F 85 20 135/85 93 11/01/16 21:00 68 11/01/16 20:50 96 11/01/16 17:35 98.0 F 60 18 119/80 93 11/01/16 13:45 91 H 11/01/16 13:41 58 L - Physical Examination HEENT: Positive: PERRL Neck: Positive: trachea midline Cardiac: Positive: Reg Rate and Rhythm Lungs: Positive: Normal Exam - Labs and Meds Cardiac Enzymes 11/01/16 Range/Units 13:00 CK-MB (CK-2) 2.8 (0.0-4.0) ng/mL Coagulation 11/02/16 Range/Units 05:08 PT 13.4 (12.2-14.9) Sec. INR 1.03 (0.87-1.13) CBC 11/02/16 Range/Units 05:08 WBC 7.0 (4.5-11.0) K/mm3 RBC 5.45 H (3.65-5.03) M/mm3 Hgb 16.4 H (11.8-15.2) gm/dl Hct 49.9 H (35.5-45.6) % Plt Count 238 (140-440) K/mm3 Lymph # 2.3 (1.2-5.4) K/mm3 Bibb # 0.8 (0.0-0.8) K/mm3 Eos # 0.1 (0.0-0.4) K/mm3 Baso # 0.1 (0.0-0.1) K/mm3 Comprehensive Metabolic Panel 11/02/16 Range/Units 05:08 Sodium 136 L (137-145) mmol/L Potassium 4.2 (3.6-5.0) mmol/L Chloride 98.7 (98-107) mmol/L Carbon Dioxide 24 (22-30) mmol/L BUN 12 (9-20) mg/dL Creatinine 0.7 L (0.8-1.5) mg/dL Glucose 124 H (75-100) mg/dL Calcium 9.3 (8.4-10.2) mg/dL - Imaging and Cardiology EKG: image reviewed
[2016-11-02] MEDS: BETAPACE PO SCH (12:48)
[2016-11-02] MEDS: LOPID PO SCH (12:48)
[2016-11-02] MEDS: HCTZ PO SCH (12:48)
[2016-11-02] MEDS: COREG PO SCH (12:48)
[2016-11-02] MEDS: COZAAR PO SCH (12:48)
[2016-11-02] MEDS: FISH OIL PO SCH (12:48)
[2016-11-02] MEDS: LOVENOX SUB-Q SCH (12:49)
--- NOTE | 2016-11-02 13:51 | Cardiac Catherization Report ---
LEFT HEART CATHETERIZATION ORDERING PHYSICIAN: Dr. Indra Garcia. INDICATION FOR PROCEDURE: Unstable angina. PROCEDURES PERFORMED: 1. Selective left and right coronary angiography. 2. Left ventriculography. DESCRIPTION OF PROCEDURE: After obtaining written consent, the patient was draped using sterile technique. Lidocaine 2% was injected into the right wrist. A 5-Thai vascular sheath was inserted into the right radial artery. A 5-Thai 3.5 catheter was used to selectively engage the left coronary artery. A 5-Thai JR4, multipurpose, AL1, AR mod catheters were attempted due to engage the right coronary artery, but failed. A 5-Thai pigtail catheter was used to perform a left ventriculogram. A 5-Thai pigtail catheter was used to perform an aortic root angiogram. No complications occurred during the procedure. Hemostasis was achieved at the end of the procedure using manual pressure. FINDINGS: HEMODYNAMICS: The aortic pressure was 139/84. The left ventricular systolic pressure was 129 mmHg and the left ventricular end-diastolic pressure was 18 mmHg. There was no significant gradient noted across the left ventricular outflow tract. CARDIAC STRUCTURES: The left ventricle appears to be mildly dilated. The left ventricular ejection fraction is estimated between 25% and 30%. The mid and basal inferior mendoza are hypokinetic. CORONARY ANATOMY: 1. This is a right dominant circulation. 2. The left main is noted to have only mild nonobstructive luminal irregularities. 3. The left anterior descending artery has evidence of a significant proximal lesion that is tubular and extending all the way into the ostium of the LAD distal left main. There is approximately close to 80% luminal stenosis. The mid LAD is also diffusely diseased with a 50% diffuse disease. There is a stent in the first diagonal artery in the proximal segment. This stent is patent; however, the ostium of the diagonal artery is noted to be diseased with an 80% ostial lesion. 4. The mid to distal LAD is free of any significant obstructive disease. It is a 3 mm diameter vessel tapering into a 2 mm diameter vessel distally. 5. The left circumflex artery has no evidence of flow limiting lesions. The obtuse marginals; however, are very small in caliber. There is a tubular 50% stenosis noted in the mid segment of a large obtuse marginal. 6. The right coronary artery is known to have a very anterior and towards the very anterior take off from previous coronary angiograms done in 2010. Multiple attempts at engaging the right coronary artery failed using a JR4, multipurpose, AL1 and AR mod catheters. Nonselective injections of the aortic root did not reveal any contrast going down the right coronary artery. The right coronary artery is suspected to be occluded. There is; however, no collaterals noted from the left side. IMPRESSION: 1. Significant ostial proximal left anterior descending disease with 80% luminal stenosis followed by diffuse mid and proximals 50% to 60% stenosis of the left anterior descending. 2. Significant ostial stenosis of the first diagonal artery followed by a patent stent. 3. Patent left circumflex artery. 4. Several attempts at engaging the right coronary artery failed. Nonselective injections of the aortic root did not show any contrast filling the right coronary artery. The right coronary artery is suspected to be occluded; however, this cannot be validated for sure. Further correlation with a cardiac CTA may be warranted. 5. Dilated and hypokinetic left ventricle with an ejection fraction estimated between 25% and 30%. Hypokinesis of the basal and mid inferior wall. RECOMMENDATIONS: The patient will be recommended for a CT surgery assessment for a robotic MEREDITH to the LAD anastomosis. The patient will also be recommended for a cardiac CTA of his right coronary artery with appropriate filters given the high burden of stent and the pitfall of blooming artifact. The patient will be transferred under the care of Dr. Benton Ko at [facility]. JOB# [id number] DEMARCO/JADON
--- NOTE | 2016-11-02 16:04 | Discharge Summary ---
Providers - Providers Date of Admission: 11/01/16 03:13 Date of discharge: 11/02/16 Attending physician: JUDAH LARSON Primary care physician: [employer]IDE Hospitalization Condition: Good Hospital course: Discharge diagnosis: Chest pain Cath showing significant ostial/proximal LAD disease Unable to engage the right coronary artery with multiple catheters RCA is known to have an unusual take off from prior studies (anterior and towards the left cusp) No collaterals from the left to the right circulation ? RCA occluded Hx of coronary artery disease plavix allergy negative thallium stress at [facility] 12/2015 Hx of paroxysmal atrial fibrillation prior ablation. He is taking sotalol for suppression patient is considered a poor candidate for anticoagulation due to prior GI bleed and is currently treated with aspirin. Hx of ischemic cardiomyopathy, 20-25% Presence of indwelling cardiac defibrillator generator replaced 2012. Routine ICD interrogations have revealed normal device function. No recent appropriate or inappropriate device therapies. Disposition: DC/TX ANOTHER TYPE HEALTHCARE Time spent for discharge: 32 minutes Core Measure Documentation - Palliative Care Palliative Care/ Comfort Measures: Not Applicable - Core Measures Any of the following diagnoses?: history only Exam - Physical Exam Narrative exam: GENERAL: well-developed and well-nourished lying on bed appeared to be in no discomfort. HEENT: Normocephalic. Atraumatic. No conjunctival congestion or icterus. Patient has moist mucous membranes. NECK: Supple. Trachea midline. CHEST/LUNGS: Clear to auscultated bilaterally, breathing nonlabored. No wheezes crackles or rhonchi. HEART/CARDIOVASCULAR: Regular in rate and rhythm. S1 and S2 positive. ABDOMEN: Abdomen is soft, nontender. Patient has normal bowel sounds. SKIN: There is no rash. Warm and dry. NEURO: No focal motor deficit. Follows command. MUSCULOSKELETAL: No joint effusion or tenderness. EXTRIMITY: No edema, no cyanosis or clubbing. PSYCH: Cooperative. - Constitutional Vitals: Temp Pulse Resp BP Pulse Ox 98.0 F 60 20 135/79 93 11/02/16 06:32 11/02/16 10:41 11/02/16 06:32 11/02/16 06:32 11/02/16 13:40 Plan Follow up with: SG PERALTA MD [Primary Care Provider] - 3-5 Days
[2016-11-02 19:17] VITALS: BP 149/85
== END 2016-11-02 19:50 | disposition other institution (70) | DRG 287 ==
LOC: ED 23:20 → 4A 11-01 03:13
PROVIDERS: ADMIT Internal Medicine; ATTEND Internal Medicine
PROC: 4A023N7 Measurement of Cardiac Sampling and Pressure, Left Heart, Percutaneous Approach (ICD-10-PCS; principal; 2016-11-02)
PROC: B2111ZZ Fluoroscopy of Multiple Coronary Arteries using Low Osmolar Contrast (ICD-10-PCS; 2016-11-02)
PROC: B2151ZZ Fluoroscopy of Left Heart using Low Osmolar Contrast (ICD-10-PCS; 2016-11-02)
DX: I25.110 Atherosclerotic heart disease of native coronary artery with unstable angina pectoris (principal); I50.9 Heart failure, unspecified; I48.91 Unspecified atrial fibrillation; E78.5 Hyperlipidemia, unspecified; I48.0 Paroxysmal atrial fibrillation; I25.5 Ischemic cardiomyopathy; Z98.61 Coronary angioplasty status; Z87.891 Personal history of nicotine dependence; Z88.2 Allergy status to sulfonamides; Z88.8 Allergy status to other drugs, medicaments and biological substances; Z82.49 Family history of ischemic heart disease and other diseases of the circulatory system; I11.0 Hypertensive heart disease with heart failure
CPT/HCPCS: 36415; 71010; 80048; 82550; 82553; 82962; 84484; 85025; 85379; 85610; 93005; 93010; 93458; 93567; C1894; J1644; J1650; J2250; J2405; J3010; J7040; Q9967

== ENCOUNTER 2017-07-30 04:05 | Inpatient (IN) | payer MEDICARE ==
[2017-07-30 05:34] LABS: Basophils % (Auto) 2.3 % (0.0-1.8); Eosinophils % (Auto) 1.8 % (0.0-4.3); Hematocrit 47.5 % (35.5-45.6); Hemoglobin 15.9 gm/dl (11.8-15.2); Mean Corpuscular HGB Conc 33 % (32-34); Mean Corpuscular Hemoglobin 30 pg (28-32); Mean Corpuscular Volume 91 fl (84-94); Platelet Count 278 K/mm3 (140-440); Red Blood Count 5.25 M/mm3 (3.65-5.03); Red Cell Distribution Width 13.4 % (13.2-15.2); White Blood Count 7.8 K/mm3 (4.5-11.0)
[2017-07-30 05:53] LABS: Anion Gap 18 mmol/L; BUN/Creatinine Ratio 18; Blood Urea Nitrogen 14 mg/dL (9-20); Calcium 9.5 mg/dL (8.4-10.2); Carbon Dioxide 25 mmol/L (22-30); Chloride 101.9 mmol/L (98-107); Glucose 141 mg/dL (75-100); Potassium 4.3 mmol/L (3.6-5.0); Sodium 141 mmol/L (137-145)
[2017-07-30] MEDS ORDERED: NITROSTAT SL PRN ×3 (06:24→08:41)
[2017-07-30] MEDS ORDERED: BABY ASPIRIN PO ONE (06:26)
--- NOTE | 2017-07-30 06:26 | Emergency Department Report ---
ED Chest Pain HPI - General Chief Complaint: Chest Pain Stated Complaint: CHEST PAIN Time Seen by Provider: 07/30/17 06:16 Source: patient, family, EMS (ems notes not available at time of chart dictation), RN notes reviewed, old records reviewed Mode of arrival: Stretcher Limitations: No Limitations - History of Present Illness Initial Comments: This is a 57-year-old male. The patient is previously known to this provider. Past medical history includes hypertension, high cholesterol, heart disease status post bypass, stents. Cardiology: Dr. Baltazar Patient presents to the ER today with a complaint of resolved chest pain. The chest pain was central, described as pressure-like and "something sitting on my chest." It was associated with diaphoresis. It has since resolved. There is no leg pain, there is no leg swelling, no recent hospital admissions or travel, patient reports no cardiac risk stratification, catheterization or stress test since his cardiac bypass. Patient has no chest pain at this time, he reports his symptoms have resolved. His symptoms did not radiate anywhere, and he did not have exacerbating or relieving factors. MD Complaint: chest pain -: Sudden, minutes(s) Onset: during rest Pain Location: substernal Pain Radiation: none Severity: severe Severity scale (0 -10): 9 Quality: pressure Consistency: now resolved Improves With: nothing Worsens With: nothing re: diaphoresis Treatments Prior to Arrival: aspirin Aspirin use within the Past 7 Days: (1) Yes - Related Data On Oral Contraceptives: No Home Medications Medication Instructions Recorded Confirmed Last Taken Aspirin [Aspirin TAB] 325 mg PO QDAY 11/01/16 07/30/17 07/29/17 Carvedilol [Coreg] 12.5 mg PO BID 11/01/16 07/30/17 07/29/17 Gemfibrozil [Lopid] 600 mg PO BID 11/01/16 07/30/17 07/29/17 Hydrochlorothiazide [HCTZ] 25 mg PO QDAY 11/01/16 07/30/17 07/29/17 ISOSORBIDE MONOnitrate [Imdur ER] 30 mg PO DAILY 11/01/16 07/30/17 07/29/17 Losartan [Cozaar] 25 mg PO QDAY 11/01/16 07/30/17 07/29/17 Nitroglycerin [Nitrostat] 0.4 mg SL Q5M PRN 11/01/16 07/30/17 07/29/17 [place]-3S/Dha/Epa/Fish Oil [[place]-3 1 each PO QDAY 11/01/16 07/30/17 07/29/17 Fish Oil 1,000 mg Sfgl] Simvastatin [Zocor TAB] 40 mg PO DAILY 11/01/16 07/30/17 07/29/17 Sotalol HCl [Sotalol] 120 mg PO BID 11/01/16 07/30/17 07/29/17 Allergies Allergy/AdvReac Type Severity Reaction Status Date / Time clopidogrel bisulfate Allergy Rash Verified 06/23/13 11:46 [From Plavix] Sulfa (Sulfonamide Allergy Anaphylaxis Verified 06/23/13 11:47 Antibiotics) nitroglycerin AdvReac Dizziness Verified 06/23/13 11:47 Heart Score - HEART Score History: Highly suspicious EKG: Non-specific Age: 45-65 Risk factors: > 3 risk factors or hx of atherosclerotic disease Troponin: < normal limit HEART Score: 6 - Critical Actions Critical Actions: 4-6 pts:12-16.6% risk of adverse cardiac event. Should be admitted ED Review of Systems ROS: Stated complaint: CHEST PAIN Other details as noted in HPI Constitutional: diaphoresis Eyes: denies: vision change Respiratory: denies: cough Cardiovascular: chest pain Gastrointestinal: denies: vomiting Genitourinary: as per HPI Musculoskeletal: denies: back pain Skin: denies: lesions Neurological: denies: weakness Psychiatric: as per HPI ED Past Medical Hx - Past Medical History Previous Medical History?: Yes Hx Hypertension: Yes Hx Heart Attack/AMI: Yes Hx Congestive Heart Failure: Yes Hx Diabetes: No Hx Asthma: No Hx COPD: No Additional medical history: 6 stents, pacemaker/defibrillator - Surgical History Past Surgical History?: Yes Hx Coronary Stent: Yes (x6) Hx Pacemaker: Yes Hx Internal Defibrillator: Yes Additional Surgical History: Pacemaker/defibrillator - Social History Smoking Status: Former Smoker Substance Use Type: Prescribed - Medications Home Medications: Home Medications Medication Instructions Recorded Confirmed Last Taken Type Aspirin [Aspirin TAB] 325 mg PO QDAY 11/01/16 07/30/17 07/29/17 History Carvedilol [Coreg] 12.5 mg PO BID 11/01/16 07/30/17 07/29/17 History Gemfibrozil [Lopid] 600 mg PO BID 11/01/16 07/30/17 07/29/17 History Hydrochlorothiazide [HCTZ] 25 mg PO QDAY 11/01/16 07/30/17 07/29/17 History ISOSORBIDE MONOnitrate [Imdur ER] 30 mg PO DAILY 11/01/16 07/30/17 07/29/17 History Losartan [Cozaar] 25 mg PO QDAY 11/01/16 07/30/17 07/29/17 History Nitroglycerin [Nitrostat] 0.4 mg SL Q5M PRN 11/01/16 07/30/17 07/29/17 History [place]-3S/Dha/Epa/Fish Oil [[place]-3 1 each PO QDAY 11/01/16 07/30/17 07/29/17 History Fish Oil 1,000 mg Sfgl] Simvastatin [Zocor TAB] 40 mg PO DAILY 11/01/16 07/30/17 07/29/17 History Sotalol HCl [Sotalol] 120 mg PO BID 11/01/16 07/30/17 07/29/17 History ED Physical Exam - General Limitations: No Limitations General appearance: alert, in no apparent distress, obese - Head Head exam: Present: atraumatic, normocephalic - Eye Eye exam: Present: normal appearance, EOMI - ENT ENT exam: Present: normal exam, normal orophraynx, mucous membranes moist, normal external ear exam - Neck Neck exam: Present: normal inspection, full ROM. Absent: tenderness, meningismus - Respiratory Respiratory exam: Present: normal lung sounds bilaterally. Absent: respiratory distress, chest wall tenderness - Cardiovascular Cardiovascular Exam: Present: regular rate, normal rhythm, normal heart sounds. Absent: systolic murmur, diastolic murmur, rubs, gallop - GI/Abdominal GI/Abdominal exam: Present: soft, normal bowel sounds. Absent: distended, tenderness, guarding, rebound, rigid, pulsatile mass - Rectal Rectal exam: Present: deferred - Extremities Exam Extremities exam: Present: normal inspection, full ROM, normal capillary refill. Absent: pedal edema, joint swelling, calf tenderness - Back Exam Back exam: Present: normal inspection, full ROM. Absent: tenderness, CVA tenderness (R), paraspinal tenderness, vertebral tenderness - Neurological Exam Neurological exam: Present: alert, oriented X3, CN II-XII intact, other ( Extraocular movements intact. Tongue midline. No facial droop. Facial sensation intact to light touch in the V1, V2, V3 distribution bilaterally. 5 and 5 strength in 4 extremities.. Sensation is intact to light touch in 4 extremities.). Absent: motor sensory deficit - Psychiatric Psychiatric exam: Present: normal affect, normal mood - Skin Skin exam: Present: warm, dry, intact, normal color. Absent: rash ED Course Vital Signs 07/30/17 07/30/17 07/30/17 04:08 04:15 04:17 Temperature 98.2 F Pulse Rate 75 74 78 Respiratory 23 24 Rate Blood Pressure 108/66 102/73 O2 Sat by Pulse 95 96 Oximetry 07/30/17 07/30/17 07/30/17 04:30 04:45 05:00 Temperature Pulse Rate 69 68 68 Respiratory 16 16 15 Rate Blood Pressure 108/66 108/69 104/70 O2 Sat by Pulse 93 95 95 Oximetry 07/30/17 07/30/17 07/30/17 05:15 05:30 05:45 Temperature Pulse Rate 61 72 64 Respiratory 12 22 16 Rate Blood Pressure 108/71 102/68 105/61 O2 Sat by Pulse 96 95 95 Oximetry 07/30/17 07/30/17 07/30/17 06:00 06:15 06:31 Temperature Pulse Rate 63 67 70 Respiratory 16 16 16 Rate Blood Pressure 101/61 104/62 104/62 O2 Sat by Pulse 95 95 93 Oximetry 07/30/17 07/30/17 07/30/17 06:45 07:00 07:15 Temperature Pulse Rate 61 65 65 Respiratory 19 14 12 Rate Blood Pressure 117/81 115/84 101/64 O2 Sat by Pulse 93 90 95 Oximetry 07/30/17 07/30/17 07/30/17 07:30 07:41 07:45 Temperature Pulse Rate 62 67 61 Respiratory 18 14 Rate Blood Pressure 97/60 106/67 100/65 O2 Sat by Pulse 90 93 Oximetry 07/30/17 07/30/17 07/30/17 08:00 08:15 08:30 Temperature Pulse Rate 60 59 L 56 L Respiratory 16 13 14 Rate Blood Pressure 94/60 106/65 91/63 O2 Sat by Pulse 96 97 94 Oximetry 07/30/17 07/30/17 07/30/17 08:45 09:00 09:15 Temperature Pulse Rate 57 L 56 L 53 L Respiratory 13 15 17 Rate Blood Pressure 100/70 104/73 105/70 O2 Sat by Pulse 94 89 92 Oximetry 07/30/17 09:21 Temperature Pulse Rate 54 L Respiratory 15 Rate Blood Pressure 105/70 O2 Sat by Pulse 92 Oximetry - Reevaluation(s) Reevaluation #1: 07/30/17 07:40 Case is presents to the patient's private licensed practical nurse instructor, Dr. Baltazar, who agrees with plan and will follow in consultation. NATALIE score - Natalie Score Age > 65: (0) No Aspirin use within the Past 7 Days: (1) Yes 3 or more CAD Risk Factors: (1) Yes 2 or more Angina events in past 24 hrs: (0) No Known CAD with more than 50% Stenosis: (1) Yes Elevated Cardiac Markers: (0) No ST Deviation Greater than 0.5mm: (0) No NATALIE Score: 3 ED Medical Decision Making - Lab Data Result diagrams: 07/30/17 04:57 07/30/17 04:57 Vital Signs 07/30/17 07/30/17 07/30/17 04:08 04:15 04:17 Temperature 98.2 F Pulse Rate 75 74 78 Respiratory 23 24 Rate Blood Pressure 108/66 102/73 O2 Sat by Pulse 95 96 Oximetry 07/30/17 07/30/17 07/30/17 04:30 04:45 05:00 Temperature Pulse Rate 69 68 68 Respiratory 16 16 15 Rate Blood Pressure 108/66 108/69 104/70 O2 Sat by Pulse 93 95 95 Oximetry 07/30/17 07/30/17 07/30/17 05:15 05:30 05:45 Temperature Pulse Rate 61 72 64 Respiratory 12 22 16 Rate Blood Pressure 108/71 102/68 105/61 O2 Sat by Pulse 96 95 95 Oximetry 07/30/17 07/30/17 07/30/17 06:00 06:15 06:31 Temperature Pulse Rate 63 67 70 Respiratory 16 16 16 Rate Blood Pressure 101/61 104/62 104/62 O2 Sat by Pulse 95 95 93 Oximetry 07/30/17 07/30/17 07/30/17 06:45 07:00 07:15 Temperature Pulse Rate 61 65 65 Respiratory 19 14 12 Rate Blood Pressure 117/81 115/84 101/64 O2 Sat by Pulse 93 90 95 Oximetry Lab Results 07/30/17 07/30/17 Range/Units 04:57 04:57 WBC 7.8 (4.5-11.0) K/mm3 RBC 5.25 H (3.65-5.03) M/mm3 Hgb 15.9 H (11.8-15.2) gm/dl Hct 47.5 H (35.5-45.6) % MCV 91 (84-94) fl MCH 30 (28-32) pg MCHC 33 (32-34) % RDW 13.4 (13.2-15.2) % Plt Count 278 (140-440) K/mm3 Lymph % (Auto) 29.5 (13.4-35.0) % [place] % (Auto) 11.7 H (0.0-7.3) % Eos % (Auto) 1.8 (0.0-4.3) % Baso % (Auto) 2.3 H (0.0-1.8) % Lymph # 2.3 (1.2-5.4) K/mm3 [place] # 0.9 H (0.0-0.8) K/mm3 Eos # 0.1 (0.0-0.4) K/mm3 Baso # 0.2 H (0.0-0.1) K/mm3 Seg Neutrophils % 54.7 (40.0-70.0) % Seg Neutrophils # 4.3 (1.8-7.7) K/mm3 Sodium 141 (137-145) mmol/L Potassium 4.3 (3.6-5.0) mmol/L Chloride 101.9 (98-107) mmol/L Carbon Dioxide 25 (22-30) mmol/L Anion Gap 18 mmol/L BUN 14 (9-20) mg/dL Creatinine 0.8 (0.8-1.5) mg/dL Estimated GFR > 60 ml/min BUN/Creatinine Ratio 18 % Glucose 141 H (75-100) mg/dL Calcium 9.5 (8.4-10.2) mg/dL Troponin T < 0.010 (0.00-0.029) ng/mL - EKG Data -: EKG Interpreted by Me - EKG Data 07/30/17 07:37 Sinus, 75 bpm, left axis deviation, poor R-wave progression, abnormal EKG, not morphologically consistent with ST elevation myocardial infarction. Borderline first-degree AV block, appears unchanged when compared to prior, Repeat EKG also unchanged - Radiology Data Radiology results: report reviewed, image reviewed X-ray the chest is negative. - Medical Decision Making Differential diagnosis, including but not limited to: Pneumonia, hiatal hernia, GERD, gastritis, unstable angina Assessment and plan: 57-year-old male with known ischemic heart disease with concerning chest pain, negative troponin, EKG abnormal but unchanged from prior , patient will be admitted for repeat cardiac risk stratification. No pulmonary embolus or DVT risk factors, low risk by well's criteria. We will discuss with his primary licensed practical nurse instructor. Case is presents to the hospital nurse practitioner, Kitty Alex; she accepts the patient to the medical service for acute coronary syndrome risk stratification. Patient did have chest pain after my initial history and physical, when necessary nitroglycerin ordered, repeat EKG did not demonstrate any changes. Critical care attestation.: If time is entered above; I have spent that time in minutes in the direct care of this critically ill patient, excluding procedure time. ED Disposition Clinical Impression: Chest pain Disposition: -09 OP ADMIT IP TO THIS HOSP Is pt being admited?: Yes Does the pt Need Aspirin: Yes Condition: Good
--- NOTE | 2017-07-30 06:47 | XRay Report ---
FINAL REPORT EXAM: XR CHEST 1V AP HISTORY: cp TECHNIQUE: An AP view of the chest was obtained. FINDINGS: Heart size and mediastinum appear normal. The lungs are clear. There is no evidence of congestion or effusion. There is a pacemaker overlying the left chest wall with the lead in the right ventricle. The bones and soft tissues do not show any acute changes. IMPRESSION: No active chest disease.
[2017-07-30 08:10] LABS: INR 0.98 (0.87-1.13)
[2017-07-30 08:11] LABS: Partial Thromboplastin Time 30.3 Sec. (24.2-36.6)
--- NOTE | 2017-07-30 08:36 | History and Physical Report ---
History of Present Illness Date of examination: 07/30/17 Date of admission: 07/30/2017 Chief complaint: Chest pain History of present illness: Patient is a 57 years old male with past medical history of hypertension, high cholesterol, heart disease status post bypass, stents, who presented to the Emergency Department complaining of left side chest pain. He states that the pain began today around 3:00Am, intermittent left side chest pain. Patient described the pain as, sharp pressure,-like and something sitting on his chest; that radiates to the back. The sharp pain lasted around 1 minute. There is no aggravating or reliving factors. The painful episodes did not increase in intensity or severity during this time. Patient rated his pain level 2/10 at present time. He experienced shortness of breath, nausea, and diaphoresis during these episodes of pain. He denies vomiting during these episodes of pain. He stated that his symptoms are the same with his pervious OR. He continued to have several episodes of the pain throughout the morning, he decided to come to the emergency department. Past History Past Medical History: CAD, hypertension, hyperlipidemia Past Surgical History: Other ( heart disease status post bypass, stents) Social history: denies: smoking, alcohol abuse Family history: hypertension Medications and Allergies Allergies Allergy/AdvReac Type Severity Reaction Status Date / Time clopidogrel bisulfate Allergy Rash Verified 06/23/13 11:46 [From Plavix] Sulfa (Sulfonamide Allergy Anaphylaxis Verified 06/23/13 11:47 Antibiotics) nitroglycerin AdvReac Dizziness Verified 06/23/13 11:47 Home Medications Medication Instructions Recorded Confirmed Last Taken Type Aspirin [Aspirin TAB] 325 mg PO QDAY 11/01/16 07/30/17 07/29/17 History Carvedilol [Coreg] 12.5 mg PO BID 11/01/16 07/30/17 07/29/17 History Gemfibrozil [Lopid] 600 mg PO BID 11/01/16 07/30/17 07/29/17 History Hydrochlorothiazide [HCTZ] 25 mg PO QDAY 11/01/16 07/30/17 07/29/17 History ISOSORBIDE MONOnitrate [Imdur ER] 30 mg PO DAILY 11/01/16 07/30/17 07/29/17 History Losartan [Cozaar] 25 mg PO QDAY 11/01/16 07/30/1707/29/17 History Nitroglycerin [Nitrostat] 0.4 mg SL Q5M PRN 11/01/16 07/30/17 07/29/17 History [place]-3S/Dha/Epa/Fish Oil [[place]-3 1 each PO QDAY 11/01/16 07/30/17 07/29/17 History Fish Oil 1,000 mg Sfgl] Simvastatin [Zocor TAB] 40 mg PO DAILY 11/01/16 07/30/17 07/29/17 History Sotalol HCl [Sotalol] 120 mg PO BID 11/01/16 07/30/17 07/29/17 History Active Meds: Active Medications Aspirin (Aspirin) 325 mg PO QDAY JUDIT Carvedilol (Coreg) 12.5 mg PO BID JUDIT Gemfibrozil (Lopid) 600 mg PO BID JUDIT Hydrochlorothiazide (Hctz) 25 mg PO QDAY JUDIT Isosorbide Mononitrate (Imdur) 30 mg PO DAILY JUDIT Losartan Potassium (Cozaar) 25 mg PO QDAY [facility] Miscellaneous Medication ([place]-3s/Dha/Epa/Fish Oil [[place]-3 Fish Oil 1,000 Mg Sfgl]) 1 each PO QDAY JUDIT Miscellaneous Medication (Simvastatin) 40 mg PO DAILY JUDIT Miscellaneous Medication (Sotalol Hcl [Sotalol]) 120 mg PO BID [facility] Nitroglycerin (Nitrostat) 0.4 mg SL .Q5MIN PRN PRN Reason: Chest Pain Last Admin: 07/30/17 07:41 Dose: 0.4 mg Nitroglycerin (Nitrostat) 0.4 mg SL Q5M PRN PRN Reason: Chest Pain Review of Systems Constitutional: sweats, no weight gain, no fever, no chills, no malaise, no lethargy Ears, nose, mouth and throat: no nose pain, no nasal congestion, no nasal discharge Cardiovascular: shortness of breath, no palpitations, no rapid/irregular heart beat Respiratory: shortness of breath, dyspnea on exertion, no cough Gastrointestinal: nausea, no vomiting Genitourinary Male: no discharge, no urinary frequency, no urinary hesitancy Rectal: no incontinence, no bleeding Musculoskeletal: no arm numbness/tingling, no low back pain, no shooting leg pain Integumentary: no redness, no sores, no wounds Neurological: no parathesias, no numbness, no tingling, no seizures Psychiatric: no memory loss, no change in sleep habits, no sleep disturbances, no insomnia Endocrine: no cold intolerance, no heat intolerance, no polyphagia, no excessive thirst Hematologic/Lymphatic: no easy bruising, no easy bleeding Allergic/Immunologic: no urticaria, no allergic rhinitis Exam - Constitutional Vitals: Temp Pulse Resp BP Pulse Ox 98.2 F 60 16 94/60 96 07/30/17 04:17 07/30/17 08:00 07/30/17 08:00 07/30/17 08:00 07/30/17 08:00 General appearance: Present: no acute distress - EENT Eyes: Present: PERRL ENT: hearing intact - Neck Neck: Present: supple - Respiratory Respiratory effort: normal Respiratory: bilateral: CTA - Cardiovascular Rhythm: regular Heart Sounds: Present: S1 & S2 - Extremities Extremities: no ischemia - Abdominal General gastrointestinal: Present: soft, non-tender Male genitourinary: Present: deferred - Rectal Rectal Exam: deferred - Integumentary Integumentary: Present: clear, warm, dry - Musculoskeletal Musculoskeletal: strength equal bilaterally - Psychiatric Psychiatric: appropriate mood/affect - Neurologic Neurologic: moves all extremities - Allied Health Allied health notes reviewed: nursing Results - Labs CBC & Chem 7: 07/30/17 04:57 07/30/17 04:57 Labs: Laboratory Last Values WBC 7.8 K/mm3 (4.5-11.0) 07/30/17 04:57 RBC 5.25 M/mm3 (3.65-5.03) H 07/30/17 04:57 Hgb 15.9 gm/dl (11.8-15.2) H 07/30/17 04:57 Hct 47.5 % (35.5-45.6) H 07/30/17 04:57 MCV 91 fl (84-94) 07/30/17 04:57 MCH 30 pg (28-32) 07/30/17 04:57 MCHC 33 % (32-34) 07/30/17 04:57 RDW 13.4 % (13.2-15.2) 07/30/17 04:57 Plt Count 278 K/mm3 (140-440) 07/30/17 04:57 Lymph % (Auto) 29.5 % (13.4-35.0) 07/30/17 04:57 [place] % (Auto) 11.7 % (0.0-7.3) H 07/30/17 04:57 Eos % (Auto) 1.8 % (0.0-4.3) 07/30/17 04:57 Baso % (Auto) 2.3 % (0.0-1.8) H 07/30/17 04:57 Lymph # 2.3 K/mm3 (1.2-5.4) 07/30/17 04:57 [place] # 0.9 K/mm3 (0.0-0.8) H 07/30/17 04:57 Eos # 0.1 K/mm3 (0.0-0.4) 07/30/17 04:57 Baso # 0.2 K/mm3 (0.0-0.1) H 07/30/17 04:57 Seg Neutrophils % 54.7 % (40.0-70.0) 07/30/17 04:57 Seg Neutrophils # 4.3 K/mm3 (1.8-7.7) 07/30/17 04:57 PT 13.5 Sec. (12.2-14.9) 07/30/17 07:13 INR 0.98 (0.87-1.13) 07/30/17 07:13 APTT 30.3 Sec. (24.2-36.6) 07/30/17 07:13 Sodium 141 mmol/L (137-145) 07/30/17 04:57 Potassium 4.3 mmol/L (3.6-5.0) 07/30/17 04:57 Chloride 101.9 mmol/L (98-107) 07/30/17 04:57 Carbon Dioxide 25 mmol/L (22-30) 07/30/17 04:57 Anion Gap 18 mmol/L 07/30/17 04:57 BUN 14 mg/dL (9-20) 07/30/17 04:57 Creatinine 0.8 mg/dL (0.8-1.5) 07/30/17 04:57 Estimated GFR > 60 ml/min 07/30/17 04:57 BUN/Creatinine Ratio 18 % 07/30/17 04:57 Glucose 141 mg/dL (75-100) H 07/30/17 04:57 Calcium 9.5 mg/dL (8.4-10.2) 07/30/17 04:57 Troponin T < 0.010 ng/mL (0.00-0.029) 07/30/17 07:13 - Imaging and Cardiology Chest x-ray: image reviewed (Unremarkable ) Assessment and Plan Assessment and plan: Patient is a 57 years old male with past medical history of hypertension, high cholesterol, heart disease status post bypass, stents, who presented to the Emergency Department complaining of left side chest pain. Chest Pain We will admit to telemetry floor. EKG normal sinus rhythm no ST elevation or T-wave inversion. Negative cardiac enzyme X3 Start on aspirin Nitroglycerin when necessary Morphine ordered for pain Cardiology consult Hypertension Resume home antihypertensive medication IV hydralazine for SBP>160 Closely monitor blood pressure Dehydration IV fluid hydration Hyperlipidemia Resume home antilipid agents Coronary artery disease Continue aspirin and statin Status post bypass Follow up outpatient with his [employer] DVT prophylaxis Lovenox Advance Directives: Yes VTE prophylaxis?: Chemical Contraindication Mechanical VTE Prophylaxis: Treatment Not Indicated Plan of care discussed with patient/family: Yes
[2017-07-30] MEDS ORDERED: MORPHINE IV PRN (08:42)
[2017-07-30] MEDS ORDERED: EPA PO SCH (10:00)
[2017-07-30] MEDS ORDERED: DULCOLAX PR PRN (10:00)
[2017-07-30] MEDS ORDERED: DHA PO SCH (10:00)
[2017-07-30] MEDS ORDERED: OMEGA PO SCH (10:00)
[2017-07-30] MEDS ORDERED: TYLENOL PO PRN (10:00)
[2017-07-30] MEDS ORDERED: COREG PO SCH (10:00)
[2017-07-30] MEDS ORDERED: NON-FORMULARY (Simvastatin 40 MG) PO SCH (10:00)
[2017-07-30] MEDS ORDERED: SOTALOL HCL 120 MG PO SCH (10:00)
[2017-07-30] MEDS ORDERED: FISH OIL PO SCH (10:00)
[2017-07-30] MEDS: FISH OIL PO SCH (12:22)
[2017-07-30] MEDS: COZAAR PO SCH (12:29)
[2017-07-30] MEDS: LOPID PO SCH ×2 (12:30→22:32)
[2017-07-30] MEDS: LOVENOX SUB-Q SCH (12:31)
[2017-07-30] MEDS: ASPIRIN PO SCH (12:35)
--- NOTE | 2017-07-30 14:13 | Consultation ---
History of Present Illness Consult date: 07/30/17 Consult reason: chest pain History of present illness: This is a 57yr old male with an extensive cardiac history. He has a history of coronary artery disease and is status post CABG x1 with robotic MEREDITH to LAD. He has a history of paroxysmal atrial fibrillation with prior ablation procedure. He is taking sotalol for suppression. Patient is considered a poor candidate for anticoagulation due to prior GI bleed and is currently treated with aspirin. He has an ischemic cardiomyopathy with an indwelling cardiac defibrillator. A recent echocardiogram showed an improved LVEF 35-40%. Patient is now admitted with chest pain. Patient describes chest pain as a feeling pressure on his chest associated with shortness of breath and diaphoresis. His ECG is a sinus rhythm with no acute T-wave changes. Cardiology consultation was requested for further evaluation. Past History Past Medical History: CAD, hypertension, hyperlipidemia Past Surgical History: Other ( heart disease status post bypass, stents) Social history: denies: smoking, alcohol abuse Family history: hypertension Medications and Allergies Allergies Allergy/AdvReac Type Severity Reaction Status Date / Time clopidogrel bisulfate Allergy Rash Verified 06/23/13 11:46 [From Plavix] Sulfa (Sulfonamide Allergy Anaphylaxis Verified 06/23/13 11:47 Antibiotics) nitroglycerin AdvReac Dizziness Verified 06/23/13 11:47 Home Medications Medication Instructions Recorded Confirmed Last Taken Type Aspirin [Aspirin TAB] 325 mg PO QDAY 11/01/16 07/30/17 07/29/17 History Carvedilol [Coreg] 12.5 mg PO BID 11/01/16 07/30/17 07/29/17 History Gemfibrozil [Lopid] 600 mg PO BID 11/01/16 07/30/17 07/29/17 History Hydrochlorothiazide [HCTZ] 25 mg PO QDAY 11/01/16 07/30/17 07/29/17 History ISOSORBIDE MONOnitrate [Imdur ER] 30 mg PO DAILY 11/01/16 07/30/17 07/29/17 History Losartan [Cozaar] 25 mg PO QDAY 11/01/16 07/30/17 07/29/17 History Nitroglycerin [Nitrostat] 0.4 mg SL Q5M PRN 11/01/16 07/30/17 07/29/17 History Silver-3S/Dha/Epa/Fish Oil [Silver-3 1 each PO QDAY 11/01/16 07/30/17 07/29/17 History Fish Oil 1,000 mg Sfgl] Simvastatin [Zocor TAB] 40 mg PO DAILY 11/01/16 07/30/17 07/29/17 History Sotalol HCl [Sotalol] 120 mg PO BID 11/01/16 07/30/17 07/29/17 History Active Meds: Active Medications Acetaminophen (Tylenol) 650 mg PO Q4H PRN PRN Reason: Pain MILD(1-3)/Fever >100.5/GARCIA Aspirin (Aspirin) 325 mg PO QDAY [facility] Last Admin: 07/30/17 12:35 Dose: Not Given Bisacodyl (Dulcolax) [address] QDAY PRN PRN Reason: Constipation unrelieved by MOM Carvedilol (Coreg) 12.5 mg PO BID [facility] Enoxaparin Sodium (Lovenox) 40 mg SUB-Q QDAY [facility] Last Admin: 07/30/17 12:31 Dose: 40 mg Fish Oil (Fish Oil) 4,000 mg PO QDAY [facility] Last Admin: 07/30/17 12:22 Dose: 4,000 mg Gemfibrozil (Lopid) 600 mg PO BID [facility] Last Admin: 07/30/17 12:30 Dose: 600 mg Hydrochlorothiazide (Hctz) 25 mg PO QDAY [facility] Isosorbide Mononitrate (Imdur) 30 mg PO DAILY [facility] Losartan Potassium (Cozaar) 25 mg PO QDAY [facility] Last Admin: 07/30/17 12:29 Dose: 25 mg Miscellaneous Medication (Sotalol Hcl [Sotalol]) 120 mg PO BID [facility] Morphine Sulfate (Morphine) 2 mg IV Q4H PRN PRN Reason: Pain, Moderate (4-6) Nitroglycerin (Nitrostat) 0.4 mg SL Q5M PRN PRN Reason: Chest Pain Pravastatin Sodium (Pravachol) 80 mg PO QHS [facility] Physical Examination Vital Signs Pulse Resp 75 23 07/30/17 04:08 07/30/17 04:08 General appearance: no acute distress HEENT: Positive: PERRL Cardiac: Positive: Reg Rate and Rhythm Neuro: Positive: Grossly Intact Results 07/30/17 04:57 07/30/17 04:57 Coagulation 07/30/17 Range/Units 07:13 PT 13.5 (12.2-14.9) Sec. INR 0.98 (0.87-1.13) APTT 30.3 (24.2-36.6) Sec. CBC 07/30/17 Range/Units 04:57 WBC 7.8 (4.5-11.0) K/mm3 RBC 5.25 H (3.65-5.03) M/mm3 Hgb 15.9 H (11.8-15.2) gm/dl Hct 47.5 H (35.5-45.6) % Plt Count 278 (140-440) K/mm3 Lymph # 2.3 (1.2-5.4) K/mm3 [place] # 0.9 H (0.0-0.8) K/mm3 Eos # 0.1 (0.0-0.4) K/mm3 Baso # 0.2 H (0.0-0.1) K/mm3 Comprehensive Metabolic Panel 07/30/17 Range/Units 04:57 Sodium 141 (137-145) mmol/L Potassium 4.3 (3.6-5.0) mmol/L Chloride 101.9 (98-107) mmol/L Carbon Dioxide 25 (22-30) mmol/L BUN 14 (9-20) mg/dL Creatinine 0.8 (0.8-1.5) mg/dL Glucose 141 H (75-100) mg/dL Calcium 9.5 (8.4-10.2) mg/dL Assessment and Plan Chest pain Hx of CAD with CABG x1 with robotic MEREDITH to LAD 10/2016 plavix allergy negative thallium stress at [facility] 12/2015 Hx of paroxysmal atrial fibrillation with prior ablation. He is taking sotalol for suppression patient is considered a poor candidate for anticoagulation due to prior GI bleed and is currently treated with aspirin. Hx of ischemic cardiomyopathy EF improved to 35-40% on echo 04/2017 Presence of indwelling cardiac defibrillator generator replaced 2012.
[2017-07-30] MEDS: COREG PO SCH ×2 (19:59→22:32)
[2017-07-30] MEDS: HCTZ PO SCH (20:00)
[2017-07-30] MEDS: IMDUR PO SCH (20:00)
[2017-07-30] MEDS: BETAPACE PO SCH (22:31)
[2017-07-30] MEDS: PRAVACHOL PO SCH (22:31)
[2017-07-31 07:40] LABS: Basophils % (Auto) 1.1 % (0.0-1.8); Eosinophils % (Auto) 2.9 % (0.0-4.3); Hematocrit 47.8 % (35.5-45.6); Hemoglobin 16.3 gm/dl (11.8-15.2); Mean Corpuscular HGB Conc 34 % (32-34); Mean Corpuscular Hemoglobin 31 pg (28-32); Mean Corpuscular Volume 92 fl (84-94); Platelet Count 251 K/mm3 (140-440); Red Blood Count 5.21 M/mm3 (3.65-5.03); Red Cell Distribution Width 13.3 % (13.2-15.2); White Blood Count 8.3 K/mm3 (4.5-11.0)
[2017-07-31 07:48] LABS: Anion Gap 16 mmol/L; BUN/Creatinine Ratio 14; Blood Urea Nitrogen 11 mg/dL (9-20); Calcium 8.9 mg/dL (8.4-10.2); Carbon Dioxide 24 mmol/L (22-30); Chloride 103.1 mmol/L (98-107); Glucose 137 mg/dL (75-100); Potassium 4.3 mmol/L (3.6-5.0); Sodium 139 mmol/L (137-145)
--- NOTE | 2017-07-31 09:35 | Progress Note ---
Assessment and Plan Assessment and plan: Patient is a 57 years old male with past medical history of hypertension, high cholesterol, heart disease status post bypass, stents, who presented to the Emergency Department complaining of left side chest pain. He states that the pain began today around 3:00Am, intermittent left side chest pain. Chest Pain We will admit to telemetry floor. EKG normal sinus rhythm no ST elevation or T-wave inversion. Negative cardiac enzyme X3 Stress test normal MPI Echocardiogram with 35-40% on echo 04/2017 Start on aspirin Nitroglycerin when necessary Morphine ordered for pain Cardiology consult Hypertension Resume home antihypertensive medication IV hydralazine for SBP>160 Closely monitor blood pressure Dehydration IV fluid hydration Hyperlipidemia Resume home antilipid agents Coronary artery disease Continue aspirin and statin Hx of paroxysmal atrial fibrillation with prior ablation. 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 Manager DVT prophylaxis Lovenox History Interval history: Patient denies chest pain or shortness of breath Hospitalist Physical - Constitutional Vitals: Temp Pulse Resp BP Pulse Ox 98.7 F 78 18 142/116 94 07/31/17 06:27 07/31/17 06:27 07/31/17 06:27 07/31/17 06:27 07/31/17 06:27 General appearance: Present: no acute distress - EENT Eyes: Present: PERRL ENT: hearing intact - Neck Neck: Present: supple - Respiratory Respiratory effort: normal Respiratory: bilateral: CTA - Cardiovascular Rhythm: regular Heart Sounds: Present: S1 & S2 - Extremities Extremities: no ischemia - Abdominal General gastrointestinal: soft, non-tender - Integumentary Integumentary: Present: clear, warm, dry - Psychiatric Psychiatric: appropriate mood/affect - Neurologic Neurologic: moves all extremities - Allied Health Allied health notes reviewed: nursing Results - Labs CBC & Chem 7: 07/31/17 06:50 07/31/17 06:50 Labs: Laboratory Last Values WBC 8.3 K/mm3 (4.5-11.0) 07/31/17 06:50 RBC 5.21 M/mm3 (3.65-5.03) H 07/31/17 06:50 Hgb 16.3 gm/dl (11.8-15.2) H 07/31/17 06:50 Hct 47.8 % (35.5-45.6) H 07/31/17 06:50 MCV 92 fl (84-94) 07/31/17 06:50 MCH 31 pg (28-32) 07/31/17 06:50 MCHC 34 % (32-34) 07/31/17 06:50 RDW 13.3 % (13.2-15.2) 07/31/17 06:50 Plt Count 251 K/mm3 (140-440) 07/31/17 06:50 Lymph % (Auto) 26.3 % (13.4-35.0) 07/31/17 06:50 [place] % (Auto) 10.3 % (0.0-7.3) H 07/31/17 06:50 Eos % (Auto) 2.9 % (0.0-4.3) 07/31/17 06:50 Baso % (Auto) 1.1 % (0.0-1.8) 07/31/17 06:50 Lymph # 2.2 K/mm3 (1.2-5.4) 07/31/17 06:50 [place] # 0.8 K/mm3 (0.0-0.8) 07/31/17 06:50 Eos # 0.2 K/mm3 (0.0-0.4) 07/31/17 06:50 Baso # 0.1 K/mm3 (0.0-0.1) 07/31/17 06:50 Seg Neutrophils % 59.4 % (40.0-70.0) 07/31/17 06:50 Seg Neutrophils # 4.9 K/mm3 (1.8-7.7) 07/31/17 06:50 PT 13.5 Sec. (12.2-14.9) 07/30/17 07:13 INR 0.98 (0.87-1.13) 07/30/17 07:13 APTT 30.3 Sec. (24.2-36.6) 07/30/17 07:13 Sodium 139 mmol/L (137-145) 07/31/17 06:50 Potassium 4.3 mmol/L (3.6-5.0) 07/31/17 06:50 Chloride 103.1 mmol/L (98-107) 07/31/17 06:50 Carbon Dioxide 24 mmol/L (22-30) 07/31/17 06:50 Anion Gap 16 mmol/L 07/31/17 06:50 BUN 11 mg/dL (9-20) 07/31/17 06:50 Creatinine 0.8 mg/dL (0.8-1.5) 07/31/17 06:50 Estimated GFR > 60 ml/min 07/31/17 06:50 BUN/Creatinine Ratio 14 % 07/31/17 06:50 Glucose 137 mg/dL (75-100) H 07/31/17 06:50 Calcium 8.9 mg/dL (8.4-10.2) 07/31/17 06:50 Troponin T < 0.010 ng/mL (0.00-0.029) 07/30/17 11:14
[2017-07-31] MEDS: BETAPACE PO SCH ×2 (10:52→22:05)
[2017-07-31] MEDS: ASPIRIN PO SCH (10:52)
[2017-07-31] MEDS: COREG PO SCH ×2 (10:53→22:06)
[2017-07-31] MEDS: COZAAR PO SCH (10:53)
[2017-07-31] MEDS: FISH OIL PO SCH (10:54)
[2017-07-31] MEDS: HCTZ PO SCH (10:55)
[2017-07-31] MEDS: LOPID PO SCH ×2 (10:56→22:06)
[2017-07-31] MEDS: IMDUR PO SCH (10:56)
[2017-07-31] MEDS: LOVENOX SUB-Q SCH (10:56)
[2017-07-31] MEDS ORDERED: LEXISCAN IV ONE ×2 (10:58→11:00)
--- NOTE | 2017-07-31 13:01 | Progress Note ---
Assessment and Plan Chest pain No ischemia by MPI Fixed inferior wall defect with akinesis Mild increase in RV uptake suggesting RV pressure ot volume overload Hx of CAD with CABG x1 with robotic MEREDITH to LAD 10/2016 plavix allergy negative thallium stress at [facility] 12/2015 Hx of paroxysmal atrial fibrillation with prior ablation. He is taking sotalol for suppression (normal QTc on ECG) patient is considered a poor candidate for anticoagulation due to prior GI bleed and is currently treated with aspirin. Hx of ischemic cardiomyopathy EF improved to 35-40% on echo 04/2017 Presence of indwelling cardiac defibrillator generator replaced 2012. Recommendations: No further cardiac work-up is needed Check D-dimer, if negative may go home otherwise obtain a CTA chest to evaluate the increase in RV uptake noted on MPI Subjective Date of service: 07/31/17 Principal diagnosis: Chest Pain Interval history: Patient is doing fine. He denies chest pain or shortness of breath this morning Objective Vital Signs Temp Pulse Resp BP BP Pulse Ox 07/31/17 06:27 98.7 F 78 18 142/116 94 07/31/17 04:00 68 07/31/17 00:36 99.3 F 75 18 145/89 93 07/30/17 22:32 79 135/82 07/30/17 22:31 79 135/82 07/30/17 20:19 71 18 154/93 96 07/30/17 20:00 72 105/70 07/30/17 19:59 54 L 105/70 07/30/17 19:30 98.2 F 69 135/82 07/30/17 19:27 94 H 135/82 84 07/30/17 19:25 68 94 - Physical Examination HEENT: Positive: PERRL Neck: Positive: neck supple Cardiac: Positive: Reg Rate and Rhythm Lungs: Positive: Normal Exam Neuro: Positive: Grossly Intact - Labs and Meds CBC 07/31/17 Range/Units 06:50 WBC 8.3 (4.5-11.0) K/mm3 RBC 5.21 H (3.65-5.03) M/mm3 Hgb 16.3 H (11.8-15.2) gm/dl Hct 47.8 H (35.5-45.6) % Plt Count 251 (140-440) K/mm3 Lymph # 2.2 (1.2-5.4) K/mm3 [place] # 0.8 (0.0-0.8) K/mm3 Eos # 0.2 (0.0-0.4) K/mm3 Baso # 0.1 (0.0-0.1) K/mm3 Comprehensive Metabolic Panel 07/31/17 Range/Units 06:50 Sodium 139 (137-145) mmol/L Potassium 4.3 (3.6-5.0) mmol/L Chloride 103.1 (98-107) mmol/L Carbon Dioxide 24 (22-30) mmol/L BUN 11 (9-20) mg/dL Creatinine 0.8 (0.8-1.5) mg/dL Glucose 137 H (75-100) mg/dL Calcium 8.9 (8.4-10.2) mg/dL
[2017-07-31] MEDS: PRAVACHOL PO SCH (22:07)
--- NOTE | 2017-08-01 02:31 | Treadmill Report ---
STRESS TEST INDICATION: Chest pain. ORDERING PHYSICIAN: Dr. Tanna Baltazar. FINDINGS: The left ventricular cavity is mildly dilated. There is evidence of a moderate sized fixed inferior wall defect consistent with prior myocardial infarction in the RCA distribution. Gated imaging reveals an ejection fraction of 39% with inferior wall akinesis. There is evidence of increased right ventricular uptake suggesting right ventricular pressure or volume overload. CONCLUSION: 1. Moderate size fixed inferior wall defect consistent with a prior infarction in the right coronary artery distribution. 2. No scintigraphic evidence of myocardial ischemia. 3. Moderate left ventricular systolic dysfunction with an ejection fraction measured at 39% and evidence of akinesis of the inferior wall. 4. Mild increase in right ventricular uptake suggesting right ventricular pressure or volume overload. 5. Clinical correlation is recommended. JOB# [id number] DEMARCO/JADON
[2017-08-01] MEDS: LOVENOX SUB-Q SCH (10:58)
[2017-08-01] MEDS: FISH OIL PO SCH (10:58)
[2017-08-01] MEDS: COREG PO SCH (10:59)
[2017-08-01] MEDS: BETAPACE PO SCH (10:59)
[2017-08-01] MEDS: ASPIRIN PO SCH (11:00)
[2017-08-01] MEDS: HCTZ PO SCH (11:00)
[2017-08-01] MEDS: LOPID PO SCH (11:00)
[2017-08-01] MEDS: IMDUR PO SCH (11:00)
[2017-08-01] MEDS: COZAAR PO SCH (11:01)
--- NOTE | 2017-08-01 11:58 | Progress Note ---
Assessment and Plan Chest pain No ischemia by MPI this admission negative D-dimer Hx of CAD with CABG x1 with robotic MEREDITH to LAD 10/2016 plavix allergy Hx of paroxysmal atrial fibrillation with prior ablation. He is taking sotalol for suppression patient is considered a poor candidate for anticoagulation due to prior GI bleed and is currently treated with aspirin. Hx of ischemic cardiomyopathy EF improved to 35-40% on echo 04/2017 Presence of indwelling cardiac defibrillator generator replaced 2012. Continue current medical therapy. No further cardiac workup indicated. Patient will f/u with [facility] within 1 week of discharge. Subjective Date of service: 08/01/17 Principal diagnosis: Chest Pain Objective Vital Signs Temp Pulse Resp BP BP Pulse Ox 08/01/17 11:01 61 133/75 08/01/17 11:00 61 133/75 08/01/17 10:59 61 133/75 08/01/17 10:09 98.0 F 20 L 20 133/75 93 08/01/17 09:57 97.3 F L 92 H 20 146/73 08/01/17 08:24 98.0 F 61 21 133/75 93 08/01/17 04:49 98.0 F 70 20 143/84 95 08/01/17 04:10 55 L 08/01/17 00:37 98.1 F 64 20 126/77 95 07/31/17 22:05 67 142/88 07/31/17 20:26 98.3 F 67 20 142/88 93 07/31/17 20:00 76 07/31/17 16:02 98.5 F 69 18 148/103 95 07/31/17 14:55 90 141/83 07/31/17 12:18 98.3 F 78 16 138/103 92 07/31/17 12:00 70 - Physical Examination HEENT: Positive: PERRL Neck: Positive: neck supple Neuro: Positive: Grossly Intact
--- NOTE | 2017-08-01 12:45 | Query- Chest Pain ---
Yuniel Ware____Jaime Date:____08/01/17 Test Deck Supervisor/CDS: Edwin Phone#:___[phone] Exercise your independent professional judgment when responding to query. Questions asked do not imply a particular answer is desired or expected. We greatly appreciate your clarification on this issue. Clinical Documentation States: 57 year old male was admitted on 07/30/17 The H&P ( [facility]) states " Patient is a 57 years old male with past medical history of hypertension, high cholesterol, heart disease status post bypass, stents, who presented to the Emergency Department complaining of left side chest pain. Chest Pain We will admit to telemetry floor. EKG normal sinus rhythm no ST elevation or T-wave inversion. Negative cardiac enzyme X3 " The Cardiology Progress note (Dr. Dangelo) states " Chest pain No ischemia by MPI Fixed inferior wall defect with akinesis Mild increase in RV uptake suggesting RV pressure ot volume overload " Please document the etiology of Chest Pain: [ ] Myocardial Infarction [ ] Pneumonia [ ] Mediastinitis [x ] Costochondritis [ ] Pulmonary Embolism [ ] Coronary Artery Disease [ ] GERD [ ] Other: [ ] Comment/Explanation: Present on Admission: [x ] Yes (Y) [ ] Clinically undeterminable (W) [ ] No(N) Please document response in your Progress Notes and/or Discharge Summary and indicate if the condition was present on admission. YESI
[2017-08-01 13:29] VITALS: BP 139/75
--- NOTE | 2017-08-01 14:09 | Discharge Summary ---
Providers - Providers Date of Admission: 07/30/17 08:42 Date of discharge: 08/01/17 Attending physician: HOLLEY MARTIN 07/30/17 06:25 Consult to Physician [CONS] Urgent Consulting Provider: ASHKAN JACOBSON Reason For Exam: cp Notified:: awaiting clal back Primary care physician: SENIOR INSTRUCTOR Hospitalization Condition: Good Hospital course: Patient is a 57 years old male with past medical history of hypertension, high cholesterol, heart disease status post bypass, stents, who presented to the Emergency Department complaining of left side chest pain. He states that the pain began today around 3:00Am, intermittent left side chest pain.Patient presented with atypical chest pain, ACS was ruled out, stress test normal MPI, negative cardiac enzymes, ECGs shows normal sinus rythm, CXR WNL. Echocardiogram improved to 35-40% on echo 04/2017. Patient chest pain probably from musculoskeletal. He was treated with IV fluid hydration and antihypertensive medications. Patient is considered a poor candidate for anticoagulation due to prior GI bleed and is currently treated with aspirin. Patient is clinically improved and stable for discharge. Patient advised to follow-up with her primary care provider. Discharge Diagnosed Chest Pain due to Costochondritis Hypertension Dehydration Hyperlipidemia Coronary artery disease Status post bypass Presence of indwelling cardiac defibrillator Disposition: DC-01 TO HOME OR SELFCARE Time spent for discharge: 35 minutes Core Measure Documentation - Palliative Care Palliative Care/ Comfort Measures: Not Applicable - Core Measures Any of the following diagnoses?: none Exam - Constitutional Vitals: Temp Pulse Resp BP Pulse Ox 98.2 F 65 20 139/75 95 08/01/17 13:27 08/01/17 13:27 08/01/17 13:27 08/01/17 13:27 08/01/17 13:27 General appearance: Present: no acute distress - EENT Eyes: Present: PERRL ENT: hearing intact - Neck Neck: Present: supple - Respiratory Respiratory effort: normal Respiratory: bilateral: CTA - Cardiovascular Rhythm: regular Heart Sounds: Present: S1 & S2 - Extremities Extremities: no ischemia - Abdominal General gastrointestinal: Present: soft, non-tender Male genitourinary: Present: deferred - Rectal Rectal Exam: deferred - Integumentary Integumentary: Present: clear, warm, dry - Musculoskeletal Musculoskeletal: strength equal bilaterally - Psychiatric Psychiatric: appropriate mood/affect - Neurologic Neurologic: moves all extremities - Allied Health Allied health notes reviewed: nursing Plan Diet: low fat, low cholesterol, low salt Follow up with: [facility] [Provider Group] - 7 Days PRIMARY CARE, [Primary Care Provider] - 3-5 Days Prescriptions: Pravastatin [Pravachol] 80 mg PO QHS 30 Days tablet Carvedilol [Coreg] 12.5 mg PO BID 30 Days tablet ISOSORBIDE MONOnitrate [Imdur ER] 30 mg PO DAILY 30 Days tablet Losartan [Cozaar] 25 mg PO QDAY 30 Days tablet Sotalol [Betapace] 120 mg PO Q12HR 30 Days tablet
== END 2017-08-01 14:46 | disposition home or self-care (01) | DRG 206 ==
LOC: ED 04:05 → 4A 08:42
PROVIDERS: ADMIT Internal Medicine; ATTEND Internal Medicine
DX: M94.0 Chondrocostal junction syndrome [Tietze] (principal); E86.0 Dehydration; I25.10 Atherosclerotic heart disease of native coronary artery without angina pectoris; Z88.2 Allergy status to sulfonamides; Z88.8 Allergy status to other drugs, medicaments and biological substances; E78.00 Pure hypercholesterolemia, unspecified; Z79.82 Long term (current) use of aspirin; I25.2 Old myocardial infarction; I11.0 Hypertensive heart disease with heart failure; I50.9 Heart failure, unspecified; Z95.810 Presence of automatic (implantable) cardiac defibrillator; Z87.891 Personal history of nicotine dependence; Z82.49 Family history of ischemic heart disease and other diseases of the circulatory system; I25.5 Ischemic cardiomyopathy; I48.0 Paroxysmal atrial fibrillation
CPT/HCPCS: 36415; 71010; 78452; 80048; 84484; 85025; 85379; 85610; 85730; 93005; 93010; 93017; A9270-GY; A9502; J1650; J2785

== ENCOUNTER 2017-11-13 23:27 | Emergency (ER) | payer MEDICARE ==
[2017-11-13] MEDS ORDERED: ASPIRIN PO ONE (23:50)
[2017-11-14 00:21] LABS: Basophils # (Auto) 0.1 K/mm3 (0.0-0.1); Basophils % (Auto) 1.4 % (0.0-1.8); Eosinophils # (Auto) 0.2 K/mm3 (0.0-0.4); Eosinophils % (Auto) 2.4 % (0.0-4.3); Hematocrit 47.9 % (35.5-45.6); Hemoglobin 16.3 gm/dl (11.8-15.2); Lymphocytes # (Auto) 2.9 K/mm3 (1.2-5.4); Lymphocytes % (Auto) 32.7 % (13.4-35.0); Mean Corpuscular HGB Conc 34 % (32-34); Mean Corpuscular Hemoglobin 31 pg (28-32); Mean Corpuscular Volume 90 fl (84-94); Monocytes % (Auto) 10.9 % (0.0-7.3); Platelet Count 254 K/mm3 (140-440); Red Blood Count 5.31 M/mm3 (3.65-5.03)
[2017-11-14 00:36] LABS: BUN/Creatinine Ratio 17; Blood Urea Nitrogen 12 mg/dL (9-20); Calcium 9.4 mg/dL (8.4-10.2); Hemolysis Index 10
--- NOTE | 2017-11-14 07:29 | Emergency Department Report ---
ED Chest Pain HPI - General Chief Complaint: Chest Pain Stated Complaint: CP Time Seen by Provider: 11/14/17 07:28 Source: patient Mode of arrival: Ambulatory Limitations: No Limitations - History of Present Illness Initial Comments: The patient complains of right lateral chest pain. He states it now resolved but it was earlier sharp in quality. It had a gradual onset. It was unrelated to respirations. The patient denied shortness of breath and cough. He hasn't had any sweating, nausea or vomiting. He states he did have some discomfort in his arms but that was not a radiating pain and was brief and has also resolved. He admits he has had pain like this before but it has never been related to any heart problem. Patient is approximately one year status post CABG. He states he has presented to the emergency department one other time after his bypass but has not been admitted nor had any apparent problems status post procedure. MD Complaint: chest pain -: Gradual Onset: during rest Pain Location: right chest Pain Radiation: none Severity: moderate Quality: sharp Consistency: now resolved Improves With: nothing Worsens With: nothing re: denies: nausea, vomting, diaphoresis, dyspnea, sense of impending doom Other Symptoms: denies: cough, fever, syncope Treatments Prior to Arrival: none Aspirin use within the Past 7 Days: (1) Yes - Related Data On Oral Contraceptives: No Home Medications Medication Instructions Recorded Confirmed Last Taken Aspirin [Aspirin TAB] 325 mg PO QDAY 11/01/16 07/30/17 07/29/17 Carvedilol [Coreg] 12.5 mg PO BID 11/01/16 07/30/17 07/29/17 Gemfibrozil [Lopid] 600 mg PO BID 11/01/16 07/30/17 07/29/17 Hydrochlorothiazide [HCTZ] 25 mg PO QDAY 11/01/16 07/30/17 07/29/17 ISOSORBIDE MONOnitrate [Imdur ER] 30 mg PO DAILY 11/01/16 07/30/17 07/29/17 [place]-3S/Dha/Epa/Fish Oil [[place]-3 1 each PO QDAY 11/01/16 07/30/17 07/29/17 Fish Oil 1,000 mg Sfgl] Simvastatin [Zocor TAB] 40 mg PO DAILY 11/01/16 07/30/17 07/29/17 Sotalol HCl [Sotalol] 120 mg PO BID 11/01/16 07/30/17 07/29/17 Previous Rx's Medication Instructions Recorded Last Taken Type Carvedilol [Coreg] 12.5 mg PO BID 30 Days tablet 08/01/17 Unknown Rx ISOSORBIDE MONOnitrate [Imdur ER] 30 mg PO DAILY 30 Days tablet 08/01/17 Unknown Rx Losartan [Cozaar] 25 mg PO QDAY 30 Days tablet 08/01/17 Unknown Rx Nitroglycerin [Nitrostat] 0.4 mg SL Q5M PRN tablet 08/01/17 Unknown Rx [place]-3 Fatty Acids/Fish Oil [Fish 4,000 mg PO QDAY capsule 08/01/17 Unknown Rx Oil] Pravastatin [Pravachol] 80 mg PO QHS 30 Days tablet 08/01/17 Unknown Rx Sotalol [Betapace] 120 mg PO Q12HR 30 Days tablet 08/01/17 Unknown Rx traMADol [Ultram] 50 mg PO Q6HR PRN #14 tablet 11/14/17 Unknown Rx Allergies Allergy/AdvReac Type Severity Reaction Status Date / Time clopidogrel bisulfate Allergy Rash Verified 06/23/13 11:46 [From Plavix] Sulfa (Sulfonamide Allergy Anaphylaxis Verified 06/23/13 11:47 Antibiotics) nitroglycerin AdvReac Dizziness Verified 06/23/13 11:47 Heart Score - HEART Score History: Slightly suspicious EKG: Normal Age: 45-65 Risk factors: > 3 risk factors or hx of atherosclerotic disease Troponin: < normal limit HEART Score: 3 - Critical Actions Critical Actions: 0-3 pts:0.9-1.7%risk of adverse cardiac event.Candidate for discharge ED Review of Systems ROS: Stated complaint: CP Other details as noted in HPI Constitutional: denies: chills, fever Eyes: denies: eye pain, eye discharge, vision change ENT: denies: ear pain, throat pain Respiratory: denies: cough, shortness of breath, wheezing Cardiovascular: chest pain. denies: palpitations Endocrine: no symptoms reported Gastrointestinal: denies: abdominal pain, nausea, diarrhea Genitourinary: denies: urgency, dysuria Musculoskeletal: denies: back pain, joint swelling, arthralgia Skin: denies: rash, lesions Neurological: denies: headache, weakness, paresthesias Psychiatric: denies: anxiety, depression Hematological/Lymphatic: denies: easy bleeding, easy bruising ED Past Medical Hx - Past Medical History Hx Hypertension: Yes Hx Heart Attack/AMI: Yes Hx Congestive Heart Failure: Yes Hx Diabetes: No Hx Asthma: No Hx COPD: No Additional medical history: 6 stents, pacemaker/defibrillator - Surgical History Hx Coronary Stent: Yes (x6) Hx Pacemaker: Yes Hx Internal Defibrillator: Yes Hx Appendectomy: Yes Additional Surgical History: CABG, Cardiac stents, hernia repair, - Social History Smoking Status: Never Smoker Substance Use Type: None - Medications Home Medications: Home Medications Medication Instructions Recorded Confirmed Last Taken Type Aspirin [Aspirin TAB] 325 mg PO QDAY 11/01/16 07/30/17 07/29/17 History Carvedilol [Coreg] 12.5 mg PO BID 11/01/16 07/30/17 07/29/17 History Gemfibrozil [Lopid] 600 mg PO BID 11/01/16 07/30/17 07/29/17 History Hydrochlorothiazide [HCTZ] 25 mg PO QDAY 11/01/16 07/30/17 07/29/17 History ISOSORBIDE MONOnitrate [Imdur ER] 30 mg PO DAILY 11/01/16 07/30/17 07/29/17 History [place]-3S/Dha/Epa/Fish Oil [[place]-3 1 each PO QDAY 11/01/16 07/30/17 07/29/17 History Fish Oil 1,000 mg Sfgl] Simvastatin [Zocor TAB] 40 mg PO DAILY 11/01/16 07/30/17 07/29/17 History Sotalol HCl [Sotalol] 120 mg PO BID 11/01/16 07/30/17 07/29/17 History Carvedilol [Coreg] 12.5 mg PO BID 30 Days tablet 08/01/17 Unknown Rx ISOSORBIDE MONOnitrate [Imdur ER] 30 mg PO DAILY 30 Days tablet 08/01/17 Unknown Rx Losartan [Cozaar] 25 mg PO QDAY 30 Days tablet 08/01/17 Unknown Rx Nitroglycerin [Nitrostat] 0.4 mg SL Q5M PRN tablet 08/01/17 Unknown Rx [place]-3 Fatty Acids/Fish Oil [Fish 4,000 mg PO QDAY capsule 08/01/17 Unknown Rx Oil] Pravastatin [Pravachol] 80 mg PO QHS 30 Days tablet 08/01/17 Unknown Rx Sotalol [Betapace] 120 mg PO Q12HR 30 Days tablet 08/01/17 Unknown Rx traMADol [Ultram] 50 mg PO Q6HR PRN #14 tablet 11/14/17 Unknown Rx ED Physical Exam - General Limitations: No Limitations General appearance: alert, in no apparent distress - Head Head exam: Present: atraumatic, normocephalic - Eye Eye exam: Present: normal appearance, PERRL, EOMI. Absent: scleral icterus - ENT ENT exam: Present: mucous membranes moist - Neck Neck exam: Present: normal inspection. Absent: tenderness, meningismus - Respiratory Respiratory exam: Present: normal lung sounds bilaterally. Absent: respiratory distress - Cardiovascular Cardiovascular Exam: Present: regular rate, normal rhythm. Absent: systolic murmur, diastolic murmur, rubs, gallop - GI/Abdominal GI/Abdominal exam: Present: soft, normal bowel sounds. Absent: distended, tenderness, guarding, rebound, rigid - Rectal Rectal exam: Present: deferred - Extremities Exam Extremities exam: Present: normal inspection - Back Exam Back exam: Present: normal inspection - Neurological Exam Neurological exam: Present: alert, oriented X3, CN II-XII intact. Absent: motor sensory deficit - Psychiatric Psychiatric exam: Present: normal affect, normal mood - Skin Skin exam: Present: warm, dry, intact, normal color. Absent: rash ED Course Vital Signs 11/13/17 11/14/17 11/14/17 23:43 04:01 04:09 Temperature 98.8 F 98.2 F Pulse Rate 67 72 Respiratory 16 21 18 Rate Blood Pressure 141/96 Blood Pressure 152/94 [Left] O2 Sat by Pulse 100 100 Oximetry 11/14/17 11/14/17 11/14/17 04:16 04:30 04:46 Temperature Pulse Rate 68 63 61 Respiratory 20 16 12 Rate Blood Pressure 154/94 150/90 150/90 Blood Pressure [Left] O2 Sat by Pulse 94 97 97 Oximetry 11/14/17 11/14/17 11/14/17 05:00 05:16 05:30 Temperature Pulse Rate 64 74 66 Respiratory 16 13 15 Rate Blood Pressure 138/85 138/85 145/87 Blood Pressure [Left] O2 Sat by Pulse 94 93 95 Oximetry 11/14/17 11/14/17 11/14/17 05:46 06:00 06:16 Temperature Pulse Rate 62 68 56 L Respiratory 14 15 15 Rate Blood Pressure 145/87 135/78 135/78 Blood Pressure [Left] O2 Sat by Pulse 94 94 95 Oximetry 11/14/17 11/14/17 11/14/17 06:30 07:00 07:16 Temperature Pulse Rate 69 66 70 Respiratory 14 17 15 Rate Blood Pressure 150/84 127/88 127/88 Blood Pressure [Left] O2 Sat by Pulse 96 94 94 Oximetry 11/14/17 11/14/17 11/14/17 07:30 07:46 08:00 Temperature Pulse Rate 57 L 73 67 Respiratory 13 16 16 Rate Blood Pressure 124/98 124/98 127/86 Blood Pressure [Left] O2 Sat by Pulse 95 94 94 Oximetry 11/14/17 11/14/17 11/14/17 08:16 08:30 08:46 Temperature Pulse Rate 68 67 71 Respiratory 13 17 17 Rate Blood Pressure 127/86 133/84 133/84 Blood Pressure [Left] O2 Sat by Pulse 95 97 94 Oximetry 11/14/17 11/14/17 09:00 09:16 Temperature Pulse Rate 61 54 L Respiratory 13 15 Rate Blood Pressure 135/94 135/94 Blood Pressure [Left] O2 Sat by Pulse 96 93 Oximetry - Reevaluation(s) Reevaluation #1: 11/14/17 10:05 remains asymptomatic NATALIE score - Natalie Score Age > 65: (0) No Aspirin use within the Past 7 Days: (1) Yes 3 or more CAD Risk Factors: (1) Yes 2 or more Angina events in past 24 hrs: (0) No Known CAD with more than 50% Stenosis: (1) Yes Elevated Cardiac Markers: (0) No ST Deviation Greater than 0.5mm: (0) No NATALIE Score: 3 ED Medical Decision Making - Lab Data Result diagrams: 11/14/17 00:01 11/14/17 00:01 Laboratory Results - last 24 hr 11/14/17 11/14/17 11/14/17 00:01 00:01 02:34 WBC 8.9 RBC 5.31 H Hgb 16.3 H Hct 47.9 H MCV 90 MCH 31 MCHC 34 RDW 13.0 L Plt Count 254 Lymph % (Auto) 32.7 [place]alfa % (Auto) 10.9 H Eos % (Auto) 2.4 Baso % (Auto) 1.4 Lymph # 2.9 [place] # 1.0 H Eos # 0.2 Baso # 0.1 Seg Neutrophils % 52.6 Seg Neutrophils # 4.7 Sodium 137 Potassium 3.6 Chloride 98.7 Carbon Dioxide 26 Anion Gap 16 BUN 12 Creatinine 0.7 L Estimated GFR > 60 BUN/Creatinine Ratio 17 Glucose 165 H Calcium 9.4 Troponin T < 0.010 < 0.010 11/14/17 06:10 WBC RBC Hgb Hct MCV MCH MCHC RDW Plt Count Lymph % (Auto) [place] % (Auto) Eos % (Auto) Baso % (Auto) Lymph # [place] # Eos # Baso # Seg Neutrophils % Seg Neutrophils # Sodium Potassium Chloride Carbon Dioxide Anion Gap BUN Creatinine Estimated GFR BUN/Creatinine Ratio Glucose Calcium Troponin T < 0.010 Laboratory Results - last 24 hr 11/14/17 11/14/17 11/14/17 00:01 00:01 02:34 WBC 8.9 RBC 5.31 H Hgb 16.3 H Hct 47.9 H MCV 90 MCH 31 MCHC 34 RDW 13.0 L Plt Count 254 Lymph % (Auto) 32.7 [place] % (Auto) 10.9 H Eos % (Auto) 2.4 Baso % (Auto) 1.4 Lymph # 2.9 [place] # 1.0 H Eos # 0.2 Baso # 0.1 Seg Neutrophils % 52.6 Seg Neutrophils # 4.7 PT INR APTT D-Dimer Sodium 137 Potassium 3.6 Chloride 98.7 Carbon Dioxide 26 Anion Gap 16 BUN 12 Creatinine 0.7 L Estimated GFR > 60 BUN/Creatinine Ratio 17 Glucose 165 H Calcium 9.4 Troponin T < 0.010 < 0.010 11/14/17 11/14/17 06:10 08:18 WBC RBC Hgb Hct MCV MCH MCHC RDW Plt Count Lymph % (Auto) [place] % (Auto) Eos % (Auto) Baso % (Auto) Lymph # [place] # Eos # Baso # Seg Neutrophils % Seg Neutrophils # PT 13.4 INR 0.97 APTT 30.3 D-Dimer < 135.00 Sodium Potassium Chloride Carbon Dioxide Anion Gap BUN Creatinine Estimated GFR BUN/Creatinine Ratio Glucose Calcium Troponin T < 0.010 - EKG Data -: EKG Interpreted by Me EKG shows normal: sinus rhythm (first degree AV block) Rate: normal - EKG Data Interpretation: no acute changes, nonspecific ST-T wave bernarda, other (old inferior and anterior to his one PVC and nonspecific changes) - Radiology Data interpreted by me: Chest x-ray no acute process Critical care attestation.: If time is entered above; I have spent that time in minutes in the direct care of this critically ill patient, excluding procedure time. ED Disposition Clinical Impression: Atypical chest pain Disposition: DC-01 TO HOME OR SELFCARE Is pt being admited?: No Does the pt Need Aspirin: No Condition: Stable Instructions: Chest Pain (ED) Additional Instructions: Return for reevaluation any acute change or significant discomfort. Rx if needed for pain. Follow-up with your primary care and cardiology physicians. Prescriptions: traMADol [Ultram] 50 mg PO Q6HR PRN #14 tablet PRN Reason: Pain Referrals: REYNALDO GUTHRIE MD [Primary Care Provider] - 24 Hours Time of Disposition: 10:07
--- NOTE | 2017-11-14 07:48 | XRay Report ---
AP CHEST: HISTORY: chest pain AP view of the chest demonstrates a normal mediastinal and cardiac contour with clear lungs and normal bony and soft tissue structures. Single lead pacemaker devices unchanged since 07/30/17. IMPRESSION: No acute cardiopulmonary process identified.
[2017-11-14 08:36] LABS: INR 0.97 (0.87-1.13)
[2017-11-14 08:37] LABS: Partial Thromboplastin Time 30.3 Sec. (24.2-36.6)
[2017-11-14 10:33] VITALS: BP 139/97
== END 2017-11-14 10:20 | disposition home or self-care (01) ==
LOC: ED 23:27
DX: R07.89 Other chest pain (principal); I11.0 Hypertensive heart disease with heart failure; I50.9 Heart failure, unspecified; I25.2 Old myocardial infarction; Z95.1 Presence of aortocoronary bypass graft; Z95.0 Presence of cardiac pacemaker; Z95.828 Presence of other vascular implants and grafts; Z90.49 Acquired absence of other specified parts of digestive tract; Z88.2 Allergy status to sulfonamides; Z88.8 Allergy status to other drugs, medicaments and biological substances
CPT/HCPCS: 36415; 71045; 80048; 84484; 85025; 85379; 85610; 85730; 93005; 93010

== ENCOUNTER 2019-05-11 09:05 | Observation (INO) | payer MEDICARE ==
[2019-05-11] MEDS ORDERED: ASPIRIN PO ONE (09:15)
--- NOTE | 2019-05-11 10:15 | Emergency Department Report ---
ED General Adult HPI - General Chief complaint: Chest Pain Stated complaint: CHEST PAIN Time Seen by Provider: 05/11/19 10:06 Source: patient, EMS Mode of arrival: Stretcher Limitations: Other - History of Present Illness Initial comments: 59 y.o. male with a history of CABG, CAD, HTN, hypercholestermia presents with complaint of chest pain since 0430. Patient states that chest pain is left sided in nature. Patient arrived with nitro patch to arm. Patient took 650 of Aspirin prior to arrival and presented via EMS. Patient states that chest pain radiates to back. Patient had had chest pain that began in left side that radiated to the back in 2018 and quality assurance supervisor, Dr. Baltazar, upped Effiant. Patient last had bypass in 2016. Patient states that chest pain began at 0415 and is BP at that time was 183/119. Pain at that time was in left chest and began to radiate to left mid axillary region. Patient states pain then radiated to left back region. Patient states pain has had mild improvement. Severity scale (0 -10): 10 - Related Data Home Medications Medication Instructions Recorded Confirmed Last Taken Aspirin 325 mg PO QDAY 11/01/16 05/11/19 05/11/19 Gemfibrozil [Lopid] 600 mg PO BID 11/01/16 05/11/19 07/29/17 Simvastatin [Zocor TAB] 40 mg PO DAILY 11/01/16 05/11/19 07/29/17 Sotalol HCl [Sotalol] 120 mg PO BID 11/01/16 05/11/19 07/29/17 hydroCHLOROthiazide [HCTZ] 25 mg PO QDAY 11/01/16 05/11/19 07/29/17 [place]-3S/Dha/Epa/Fish Oil [[place]-3 1,000 mg PO DAILY 05/11/19 05/11/19 Unknown Fish Oil 1,000 mg Sfgl] Previous Rx's Medication Instructions Recorded Last Taken Type Carvedilol [Coreg] 12.5 mg PO BID 30 Days tablet 08/01/17 Unknown Rx ISOSORBIDE MONOnitrate [Imdur ER] 30 mg PO DAILY 30 Days tablet 08/01/17 Unknow n Rx Losartan [Cozaar] 25 mg PO QDAY 30 Days tablet 08/01/17 Unknown Rx Nitroglycerin [Nitrostat] 0.4 mg SL Q5M PRN tablet 08/01/17 Unknown Rx Allergies Allergy/AdvReac Type Severity Reaction Status Date / Time captopril Allergy Unknown Verified 05/11/19 10:24 clopidogrel bisulfate Allergy Rash Verified 05/11/19 09:15 [From Plavix] Sulfa (Sulfonamide Allergy Anaphylaxis Verified 05/11/19 10:24 Antibiotics) amlodipine AdvReac Swelling Verified 05/11/19 10:24 cephalexin [From Keflex] AdvReac Hives Verified 05/11/19 10:24 nitroglycerin AdvReac Dizziness Verified 05/11/19 10:24 ED Review of Systems ROS: Stated complaint: CHEST PAIN Other details as noted in HPI Constitutional: denies: chills, fever Eyes: denies: eye pain, eye discharge, vision change ENT: denies: ear pain, throat pain Respiratory: denies: cough, shortness of breath, wheezing Cardiovascular: chest pain Endocrine: no symptoms reported Gastrointestinal: denies: abdominal pain, nausea, diarrhea Genitourinary: denies: urgency, dysuria Musculoskeletal: denies: back pain, joint swelling, arthralgia Skin: denies: rash, lesions Neurological: denies: headache, weakness, paresthesias Psychiatric: denies: anxiety, depression Hematological/Lymphatic: denies: easy bleeding, easy bruising ED Past Medical Hx - Past Medical History Previous Medical History?: Yes Hx Hypertension: Yes Hx Heart Attack/AMI: Yes Hx Congestive Heart Failure: Yes Hx Diabetes: No Hx Asthma: No Hx COPD: No Additional medical history: 6 stents, pacemaker/defibrillator - Surgical History Past Surgical History?: Yes Hx Coronary Stent: Yes (x6) Hx Pacemaker: Yes Hx Internal Defibrillator: Yes Hx Appendectomy: Yes Additional Surgical History: CABG, Cardiac stents, hernia repair, - Social History Smoking Status: Former Smoker Substance Use Type: None - Medications Home Medications: Home Medications Medication Instructions Recorded Confirmed Last Taken Type Aspirin 325 mg PO QDAY 11/01/16 05/11/19 05/11/19 History Gemfibrozil [Lopid] 600 mg PO BID 11/01/16 05/11/19 07/29/17 History Simvastatin [Zocor TAB] 40 mg PO DAILY 11/01/16 05/11/19 07/29/17 History Sotalol HCl [Sotalol] 120 mg PO BID 11/01/16 05/11/19 07/29/17 History hydroCHLOROthiazide [HCTZ] 25 mg PO QDAY 11/01/16 05/11/19 07/29/17 History Carvedilol [Coreg] 12.5 mg PO BID 30 Days tablet 08/01/17 05/11/19 Unknown Rx ISOSORBIDE MONOnitrate [Imdur ER] 30 mg PO DAILY 30 Days tablet 08/01/17 05/11/19 Unknown Rx Losartan [Cozaar] 25 mg PO QDAY 30 Days tablet 08/01/17 05/11/19 Unknown Rx Nitroglycerin [Nitrostat] 0.4 mg SL Q5M PRN tablet 08/01/17 05/11/19 Unknown Rx [place]-3S/Dha/Epa/Fish Oil [[place]-3 1,000 mg PO DAILY 05/11/19 05/11/19 Unknown History Fish Oil 1,000 mg Sfgl] ED Physical Exam - General Limitations: Other General appearance: alert, other (uncomfortable; awake) - Head Head exam: Present: atraumatic, normocephalic - Eye Eye exam: Present: normal appearance - ENT ENT exam: Present: mucous membranes moist - Neck Neck exam: Present: normal inspection - Respiratory Respiratory exam: Present: normal lung sounds bilaterally, other (surgical scar in left chest indicative of defibrillator placement). Absent: respiratory distress - Cardiovascular Cardiovascular Exam: Present: regular rate, normal rhythm. Absent: systolic murmur, diastolic murmur, rubs, gallop - GI/Abdominal GI/Abdominal exam: Present: soft, normal bowel sounds - Rectal Rectal exam: Present: deferred - Extremities Exam Extremities exam: Present: normal inspection - Back Exam Back exam: Present: normal inspection - Neurological Exam Neurological exam: Present: alert, oriented X3, CN II-XII intact. Absent: motor sensory deficit - Psychiatric Psychiatric exam: Present: normal affect, normal mood - Skin Skin exam: Present: warm, dry, intact, normal color. Absent: rash ED Course Vital Signs 05/11/19 05/11/19 10:04 11:32 Temperature 98.8 F Pulse Rate 76 74 Respiratory 18 16 Rate Blood Pressure 162/94 Blood Pressure 154/93 [Left] O2 Sat by Pulse 100 100 Oximetry ED Medical Decision Making - Lab Data Result diagrams: 05/11/19 10:29 05/11/19 10:29 - EKG Data EKG shows normal: sinus rhythm Rate: normal - EKG Data Interpretation: other (Ventricular bigeminy; Prolonged [place] interval; ) - Medical Decision Making Patient had taken aspirin prior to arrival in ER. Patient was given Dilaudid therapy for pain control. Dr. Baltazar with cardiology was consulted as well. Dr. Baltazar wants patient to be admitted for stress study. Hospitalist consulted regarding patient. - Differential Diagnosis STEMI; NSTEMI; Dehydration; Anemia; Pneumonia Critical care attestation.: If time is entered above; I have spent that time in minutes in the direct care of this critically ill patient, excluding procedure time. ED Disposition Clinical Impression: Chest pain, Coronary artery disease Disposition: OP ADMIT IP TO THIS HOSP Is pt being admited?: Yes Does the pt Need Aspirin: No Condition: Stable Instructions: Chest Pain (ED) Referrals: JADEN HUNG MD [Primary Care Provider] - 3-5 Days Time of Disposition: 12:32 Print Language: CYPRIOT
[2019-05-11] MEDS ORDERED: ZOFRAN IV ONE (10:51)
[2019-05-11] MEDS ORDERED: DILAUDID IV ONE (10:51)
[2019-05-11 11:02] LABS: Basophils # (Auto) 0.2 K/mm3 (0.0-0.1); Basophils % (Auto) 2.1 % (0.0-1.8); Eosinophils # (Auto) 0.1 K/mm3 (0.0-0.4); Eosinophils % (Auto) 0.9 % (0.0-4.3); Hematocrit 49.9 % (35.5-45.6); Hemoglobin 17.3 gm/dl (11.8-15.2); Lymphocytes # (Auto) 1.6 K/mm3 (1.2-5.4); Lymphocytes % (Auto) 15.8 % (13.4-35.0); Mean Corpuscular HGB Conc 35 % (32-34); Mean Corpuscular Volume 90 fl (84-94); Monocytes # (Auto) 0.6 K/mm3 (0.0-0.8); Monocytes % (Auto) 6.1 % (0.0-7.3); Platelet Count 288 K/mm3 (140-440); Red Blood Count 5.54 M/mm3 (3.65-5.03); Red Cell Distribution Width 13.1 % (13.2-15.2)
[2019-05-11 11:10] LABS: BUN/Creatinine Ratio 16; Blood Urea Nitrogen 13 mg/dL (9-20); Hemolysis Index 15
--- NOTE | 2019-05-11 11:41 | XRay Report ---
CHEST 1 VIEW INDICATION: Chest Pain. COMPARISON: 11/14/2017 FINDINGS: Support devices: A left-sided AICD with lead in satisfactory location and unchanged compared to the l ast exam. Heart: Within normal limits. Pulmonary vasculature: Normal. Lungs/Pleura: No acute air space or interstitial disease. Additional findings: None. IMPRESSION: 1. No acute findings. Signer Name: Ramon Oh MD Signed: 05/11/2019 11:37 AM Workstation Name: [id number]
--- NOTE | 2019-05-11 12:51 | Consultation ---
History of Present Illness Consult date: 05/11/19 Consult reason: chest pain History of present illness: This is a 59-year old male with a history of coronary artery disease with 1 vessel CABG, robotic MEREDITH to LAD, in 2017. The right coronary artery was difficult to cannulate due to anomalously orgin and was managed medically. He has a history of paroxysmal atrial fibrillation with prior ablation procedure. He is taking sotalol for suppression. Patient was previously considered a poor candidate for anticoagulation due to prior GI bleed and is currently treated with aspirin. He also has an ischemic cardiomyopathy with an indwelling cardiac defibrillation. His latest echocardiogram showed an LVEF 35-40%. Patient presents to the emergency department with non-exertional chest pain. Cycled troponins are negative thus far. EKG is normal sinus rhythm with occasional PVCs. No acute ischemic changes. Cardiology consultation has been requested. Medications and Allergies Allergies Allergy/AdvReac Type Severity Reaction Status Date / Time captopril Allergy Unknown Verified 05/11/19 10:24 clopidogrel bisulfate Allergy Rash Verified 05/11/19 09:15 [From Plavix] Sulfa (Sulfonamide Allergy Anaphylaxis Verified 05/11/19 10:24 Antibiotics) amlodipine AdvReac Swelling Verified 05/11/19 10:24 cephalexin [From Keflex] AdvReac Hives Verified 05/11/19 10:24 nitroglycerin AdvReac Dizziness Verified 05/11/19 10:24 Home Medications Medication Instructions Recorded Confirmed Last Taken Type Aspirin 325 mg PO QDAY 11/01/16 05/11/19 05/11/19 History Gemfibrozil [Lopid] 600 mg PO BID 11/01/16 05/11/19 07/29/17 History Simvastatin [Zocor TAB] 40 mg PO DAILY 11/01/16 05/11/19 07/29/17 History Sotalol HCl [Sotalol] 120 mg PO BID 11/01/16 05/11/19 07/29/17 History hydroCHLOROthiazide [HCTZ] 25 mg PO QDAY 11/01/16 05/11/19 07/29/17 History Carvedilol [Coreg] 12.5 mg PO BID 30 Days tablet 08/01/17 05/11/19 Unknown Rx ISOSORBIDE MONOnitrate [Imdur ER] 30 mg PO DAILY 30 Days tablet 08/01/17 05/11/19 Unknown Rx Losartan [Cozaar] 25 mg PO QDAY 30 Days tablet 08/01/17 05/11/19 Unknown Rx Nitroglycerin [Nitrostat] 0.4 mg SL Q5M PRN tablet 08/01/17 05/11/19 Unknown Rx [place]-3S/Dha/Epa/Fish Oil [[place]-3 1,000 mg PO DAILY 05/11/19 05/11/19 Unknown History Fish Oil 1,000 mg Sfgl] Physical Examination Vital Signs Temp Pulse Resp BP Pulse Ox 98.8 F 76 18 162/94 100 05/11/19 10:04 05/11/19 10:04 05/11/19 10:04 05/11/19 10:04 05/11/19 10:04 General appearance: no acute distress HEENT: Positive: PERRL Neck: Positive: trachea midline Cardiac: Positive: Reg Rate and Rhythm Lungs: Positive: Decreased Breath Sounds Neuro: Positive: Grossly Intact Extremities: Absent: edema Results 05/11/19 10:29 05/11/19 10:29 CBC 05/11/19 Range/Units 10:29 WBC 10.0 (4.5-11.0) K/mm3 RBC 5.54 H (3.65-5.03) M/mm3 Hgb 17.3 H (11.8-15.2) gm/dl Hct 49.9 H (35.5-45.6) % Plt Count 288 (140-440) K/mm3 Lymph # 1.6 (1.2-5.4) K/mm3 [place] # 0.6 (0.0-0.8) K/mm3 Eos # 0.1 (0.0-0.4) K/mm3 Baso # 0.2 H (0.0-0.1) K/mm3 Comprehensive Metabolic Panel 05/11/19 Range/Units 10:29 Sodium 140 (137-145) mmol/L Potassium 4.5 (3.6-5.0) mmol/L Chloride 101.6 (98-107) mmol/L Carbon Dioxide 24 (22-30) mmol/L BUN 13 (9-20) mg/dL Creatinine 0.8 (0.8-1.5) mg/dL Glucose 163 H (75-100) mg/dL Calcium 10.0 (8.4-10.2) mg/dL Assessment and Plan Chest pain Hx of CAD with 1 vessel CABG, robotic MEREDITH to LAD, in 2017. plavix allergy Hx of paroxysmal atrial fibrillation on sotalol for suppression. previously considered a poor candidate for anticoagulation due to prior GI bleed Hx of ischemic cardiomyopathy, LVEF 35-40%. Presence of AICD Hypertension
--- NOTE | 2019-05-11 16:32 | History and Physical Report ---
History of Present Illness Date of examination: 05/11/19 Date of admission: 05/11/19 13:41 History of present illness: Mr. Sawyer Chapman comes in for chest pain of one-day duration. Medications and Allergies Allergies Allergy/AdvReac Type Severity Reaction Status Date / Time captopril Allergy Unknown Verified 05/11/19 10:24 clopidogrel bisulfate Allergy Rash Verified 05/11/19 09:15 [From Plavix] Sulfa (Sulfonamide Allergy Anaphylaxis Verified 05/11/19 10:24 Antibiotics) amlodipine AdvReac Swelling Verified 05/11/19 10:24 cephalexin [From Keflex] AdvReac Hives Verified 05/11/19 10:24 nitroglycerin AdvReac Dizziness Verified 05/11/19 10:24 Home Medications Medication Instructions Recorded Confirmed Last Taken Type Aspirin 325 mg PO QDAY 11/01/16 05/11/19 05/11/19 History Gemfibrozil [Lopid] 600 mg PO BID 11/01/16 05/11/19 07/29/17 History Simvastatin [Zocor TAB] 40 mg PO DAILY 11/01/16 05/11/19 07/29/17 History Sotalol HCl [Sotalol] 120 mg PO BID 11/01/16 05/11/19 07/29/17 History hydroCHLOROthiazide [HCTZ] 25 mg PO QDAY 11/01/16 05/11/19 07/29/17 History Carvedilol [Coreg] 12.5 mg PO BID 30 Days tablet 08/01/17 05/11/19 Unknown Rx ISOSORBIDE MONOnitrate [Imdur ER] 30 mg PO DAILY 30 Days tablet 08/01/17 05/11/19 Unknown Rx Losartan [Cozaar] 25 mg PO QDAY 30 Days tablet 08/01/17 05/11/19 Unknown Rx Nitroglycerin [Nitrostat] 0.4 mg SL Q5M PRN tablet 08/01/17 05/11/19 Unknown Rx [place]-3S/Dha/Epa/Fish Oil [[place]-3 1,000 mg PO DAILY 05/11/19 05/11/19 Unknown History Fish Oil 1,000 mg Sfgl] Exam - Constitutional Vitals: Temp Pulse Resp BP Pulse Ox 98.8 F 90 18 108/62 96 05/11/19 10:04 05/11/19 14:30 05/11/19 14:30 05/11/19 14:30 05/11/19 14:30 Results - Labs CBC & Chem 7: 05/11/19 10:29 05/11/19 10:29 Labs: Laboratory Last Values WBC 10.0 K/mm3 (4.5-11.0) 05/11/19 10:29 RBC 5.54 M/mm3 (3.65-5.03) H 05/11/19 10:29 Hgb 17.3 gm/dl (11.8-15.2) H 05/11/19 10:29 Hct 49.9 % (35.5-45.6) H 05/11/19 10:29 MCV 90 fl (84-94) 05/11/19 10: MCH 31 pg (28-32) 05/11/19 10:29 MCHC 35 % (32-34) H 05/11/19 10:29 RDW 13.1 % (13.2-15.2) L 05/11/19 10:29 Plt Count 288 K/mm3 (140-440) 05/11/19 10:29 Lymph % (Auto) 15.8 % (13.4-35.0) 05/11/19 10:29 [place] % (Auto) 6.1 % (0.0-7.3) 05/11/19 10:29 Eos % (Auto) 0.9 % (0.0-4.3) 05/11/19 10:29 Baso % (Auto) 2.1 % (0.0-1.8) H 05/11/19 10:29 Lymph # 1.6 K/mm3 (1.2-5.4) 05/11/19 10:29 [place] # 0.6 K/mm3 (0.0-0.8) 05/11/19 10:29 Eos # 0.1 K/mm3 (0.0-0.4) 05/11/19 10:29 Baso # 0.2 K/mm3 (0.0-0.1) H 05/11/19 10:29 Seg Neutrophils % 75.1 % (40.0-70.0) H 05/11/19 10:29 Seg Neutrophils # 7.5 K/mm3 (1.8-7.7) 05/11/19 10:29 Sodium 140 mmol/L (137-145) 05/11/19 10:29 Potassium 4.5 mmol/L (3.6-5.0) 05/11/19 10:29 Chloride 101.6 mmol/L (98-107) 05/11/19 10:29 Carbon Dioxide 24 mmol/L (22-30) 05/11/19 10:29 19 mmol/L 05/11/19 10:29 BUN 13 mg/dL (9-20) 05/11/19 10:29 0.8 mg/dL (0.8-1.5) 05/11/19 10:29 Estimated GFR > 60 ml/min 05/11/19 10:29 16 % 05/11/19 10:29 Glucose 163 mg/dL (75-100) H 05/11/19 10:29 Calcium 10.0 mg/dL (8.4-10.2) 05/11/19 10:29 < 0.010 ng/mL (0.00-0.029) 05/11/19 12:41
[2019-05-11] MEDS ORDERED: NITROSTAT SL PRN (22:33)
[2019-05-11] MEDS ORDERED: SOTALOL HCL 120 MG PO SCH (22:45)
[2019-05-11] MEDS: COREG PO SCH (23:58)
[2019-05-11] MEDS: LOPID PO SCH (23:58)
[2019-05-12] MEDS: BETAPACE PO SCH ×2 (00:01→10:31)
--- NOTE | 2019-05-12 06:39 | Event Note ---
Date: 05/11/19 See H/p in reports Chest pain r/o IL protocol HTN Severe CAD
[2019-05-12] MEDS ORDERED: LEXISCAN IV ONE ×2 (07:03)
--- NOTE | 2019-05-12 09:06 | History and Physical Report ---
CHIEF COMPLAINT: Chest pain since 4:30 a.m. HISTORY OF PRESENT ILLNESS: A 59-year-old male obese with history of severe coronary artery disease, hypertension, hyperlipidemia, multiple stents and CABG, comes in for chest pain, left side since 4:30 a.m. The patient took aspirin prior to arrival. Chest pain radiates to the back. Chest pain is about 5 on a scale of 1-10. No diaphoresis, no shortness of breath. The patient follows with [facility]. The patient's blood pressure was also elevated 183/119 at the time of EMS arrival. No exacerbating or relieving factors. PAST MEDICAL HISTORY: Significant for hyperlipidemia, hypertension, coronary artery disease. CURRENT MEDICATIONS: Gemfibrozil 600 mg twice a day, simvastatin 40 mg once a day, sotalol 120 mg twice a day, hydrochlorothiazide 25 mg once a day and omega 1000 mg p.o. daily. PAST MEDICAL HISTORY: As mentioned, hypertension, coronary artery disease, acute DC, congestive heart failure, pacemaker with defibrillator and 6 stents. PAST SURGICAL HISTORY: Coronary artery bypass graft, cardiac stents x 6, coronary artery bypass graft in 2017, but the year is not clear. Stents x 6 before that. SOCIAL HISTORY: Former smoker. FAMILY HISTORY: Hypertension. REVIEW OF SYSTEMS: Significant for left-sided chest pain with radiation to the left arm. Otherwise, review of systems negative. PHYSICAL EXAMINATION: GENERAL: Young elderly male, cooperative during examination, obese. VITAL SIGNS: Initial blood pressure is 162/94, later 162/100, temperature 98.8, pulse is 76, respirations 18. HEENT: Unremarkable. Pupils equal and reactive. NECK: Supple, no lymphadenopathy, no thyromegaly. LUNGS: Clear to auscultation and percussion. Good air entry. CARDIOVASCULAR SYSTEM: S1, S2 heard. No gallop, no murmur, no rub. Apical impulse in left fifth intercostal space and midclavicular line. ABDOMEN: Soft and benign. No hepatosplenomegaly, no guarding, no rigidity. Hernial orifices are normal. EXTREMITIES: Good pedal pulses. No pedal edema. CENTRAL NERVOUS SYSTEM: Alert and oriented x 4, nonfocal exam. SKIN: Normal. LABORATORY DATA: Significant for white count of 10,000, Hemoglobin 17.3 and hematocrit of 49.9. Electrolytes are normal. Glucose is 163. Troponin is less than 0.010. EKG shows ventricular bigeminy. ASSESSMENT AND PLAN: 1. Chest pain, rule out myocardial infarction, chest pain protocol. Cardiology consulted. Lexiscan in AM to be decided by cardiology. Serial troponins. 2. Hypertension. Continue antihypertensives. Losartan and sotalol and Coreg. 3. Coronary artery disease. Continue isosorbide mononitrate 60 mg daily and aspirin. 4. Hyperlipidemia. Continue simvastatin 40 mg daily. 5. Hypertriglyceridemia. Continue gemfibrozil. 6. Deep venous thrombosis prophylaxis, Lovenox 40 mg subcutaneous daily. JOB# [id number] SUDHIR/JADON KEY
[2019-05-12] MEDS ORDERED: HCTZ PO SCH (10:00)
[2019-05-12] MEDS ORDERED: PRAVACHOL PO SCH (10:00)
[2019-05-12] MEDS ORDERED: FISH OIL PO SCH ×2 (10:00)
[2019-05-12] MEDS ORDERED: DHA PO SCH (10:00)
[2019-05-12] MEDS ORDERED: EPA PO SCH (10:00)
[2019-05-12] MEDS ORDERED: NON-FORMULARY (Simvastatin 40 MG) PO SCH (10:00)
[2019-05-12] MEDS ORDERED: IMDUR PO SCH (10:00)
[2019-05-12] MEDS ORDERED: OMEGA PO SCH (10:00)
[2019-05-12] MEDS ORDERED: ASPIRIN PO SCH (10:00)
[2019-05-12] MEDS ORDERED: COZAAR PO SCH (10:00)
[2019-05-12 10:17] VITALS: BP 128/77
[2019-05-12] MEDS: COREG PO SCH (10:24)
[2019-05-12] MEDS: LOPID PO SCH (10:24)
--- NOTE | 2019-05-12 10:46 | Event Note ---
Date: 05/12/19 Lexiscan thallium stress shows a fixed inferior defect, no reversible ischemia. 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 OK for cardiac discharge, medical therapy for CAD, chronic stable angina and ischemic cardiomyopathy.
--- NOTE | 2019-05-12 13:15 | Discharge Summary ---
Providers - Providers Date of Admission: 05/11/19 13:41 Date of discharge: 05/12/19 Attending physician: JUDAH LARSON 05/11/19 22:41 Consult to Physician [CONS] Routine Comment: Consulting Provider: ASHKAN JACOBSON Physician Instructions: Reason For Exam: Chest pain Primary care physician: MACADAM RAKER Hospitalization Condition: Stable Hospital course: This is a 59-year old male with a history of coronary artery disease with 1 vessel CABG, robotic MEREDITH to LAD, in 2017. The right coronary artery was difficult to cannulate due to anomalously orgin and was managed medically. He has a history of paroxysmal atrial fibrillation with prior ablation procedure. He is taking sotalol for suppression. Patient was previously considered a poor candidate for anticoagulation due to prior GI bleed and is currently treated with aspirin. He also has an ischemic cardiomyopathy with an indwelling cardiac defibrillation. His latest echocardiogram showed an LVEF 35-40%. Patient presents to the emergency department with non-exertional chest pain. Cycled troponins are negative thus far. EKG is normal sinus rhythm with occasional PVCs. No acute ischemic changes. Cardiology consultation has been requested. Lexiscan thallium stress shows a fixed inferior defect, no reversible ischemia. 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 OK for cardiac discharge, medical therapy for CAD, chronic stable angina and ischemic cardiomyopathy. Discharge diagnosis and Mx: Chest pain, likely from GERD, ACS ruled out Hx of CAD with 1 vessel CABG, robotic MEREDITH to LAD, in 2017. plavix allergy Hx of paroxysmal atrial fibrillation, on sotalol for suppression. previously considered a poor candidate for anticoagulation due to prior GI bleed Hx of ischemic cardiomyopathy, LVEF 35-40%. Presence of AICD Hypertension, stable Disposition: DC-01 TO HOME OR SELFCARE Time spent for discharge: 34 minutes Core Measure Documentation - Palliative Care Palliative Care/ Comfort Measures: Not Applicable - Core Measures Any of the following diagnoses?: none Exam - Physical Exam Narrative exam: General appearance: no acute distress HEENT: Positive: PERRL Neck: Positive: trachea midline Cardiac: Positive: Reg Rate and Rhythm Lungs: Positive: Decreased Breath Sounds Neuro: Positive: Grossly Intact Extremities: Absent: edema - Constitutional Vitals: Temp Pulse Resp BP Pulse Ox 98.8 F 67 15 128/77 89 05/12/19 07:38 05/12/19 07:00 05/12/19 03:26 05/12/19 09:44 05/12/19 04:31 Plan Activity: advance as tolerated Weight Bearing Status: Non-Weight Bearing Diet: low fat, low salt [facility] [place] MD JOSIAH [Referring] - 3-5 Days
[2019-05-12] MEDS ORDERED: LOVENOX SUB-Q SCH (22:00)
--- NOTE | 2019-05-12 22:14 | Treadmill Report ---
THALLIUM STRESS TEST REPORT LEFT VENTRICLE: Left ventricle is mildly to moderately dilated. There is a moderate sized, fixed inferior defect. On the resting study, there is no reversibility. Gated analysis demonstrates at least mild left ventricular systolic dysfunction with ejection fraction calculated at 43%. CONCLUSION: Evidence of a moderate sized, prior inferior wall myocardial infarction. There is no reversible ischemia demonstrated on this study. Clinical correlation is recommended. [facility]# [id number] CAYDEN/NTS
== END 2019-05-12 15:47 | disposition home or self-care (01) ==
LOC: ED 09:05 → INTOOBSV 13:41 → 4A 13:41
PROVIDERS: ADMIT Internal Medicine; ATTEND Internal Medicine
DX: R07.89 Other chest pain (principal); I25.10 Atherosclerotic heart disease of native coronary artery without angina pectoris; E78.1 Pure hyperglyceridemia; I11.0 Hypertensive heart disease with heart failure; I50.9 Heart failure, unspecified; Z95.1 Presence of aortocoronary bypass graft; Z95.810 Presence of automatic (implantable) cardiac defibrillator; Z87.891 Personal history of nicotine dependence
CPT/HCPCS: 36415; 71045; 78452; 80048; 84484; 85025; 93005; 93010; 93017; 96374; 96375; 99284; A9270; A9502; G0378; J1170; J2405; J2785

== ENCOUNTER 2019-10-08 20:20 | Observation (INO) | payer MEDICARE ==
[2019-10-08] MEDS ORDERED: MORPHINE 2 MG/1 ML INJ IV ONE (20:34)
--- NOTE | 2019-10-08 20:34 | Emergency Department Report ---
ED Chest Pain HPI - General Chief Complaint: Chest Pain Stated Complaint: CHEST PAIN Time Seen by Provider: 10/08/19 20:20 Source: patient, EMS Mode of arrival: Stretcher Limitations: No Limitations - History of Present Illness Initial Comments: Patient is a 59-year-old male that presents emergency room with complaints of chest pain. Patient states his chest pain started approximately an hour prior to arrival. Patient states his chest pain is radiating to his left upper extremity. Patient states his chest pain is a 6 out of 10. Patient states he feels like a stabbing pain. Patient brought in by EMS. EMS gave the patient aspirin and nitro. Patient states his pain improved with aspirin and nitro. Patient states his pain is also better with rest and worse with exertion. Patient also complains of shortness of breath and dyspnea on exertion. Patient denies fever and chills. Patient states he is got 6 stents placed and has had [address] 2 [address] 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 MD Complaint: chest pain -: Sudden Onset: during rest Pain Location: substernal, left chest Pain Radiation: LUE Severity: severe Severity scale (0 -10): 6 Quality: sharp Consistency: constant Improves With: nitroglycerin, medication-other, rest Worsens With: exertion re: dyspnea. denies: nausea, vomting, diaphoresis Other Symptoms: denies: cough, fever, syncope, rash, acid taste in mouth, leg swelling, palpitations Treatments Prior to Arrival: aspirin, nitroglycerin Aspirin use within the Past 7 Days: (1) Yes - Related Data On Oral Contraceptives: No Home Medications Medication Instructions Recorded Confirmed Last Taken Aspirin 325 mg PO QDAY 11/01/16 10/08/19 05/11/19 Simvastatin [Zocor TAB] 40 mg PO DAILY 11/01/16 10/08/19 07/29/17 Sotalol HCl [Sotalol] 120 mg PO BID 11/01/16 10/08/19 07/29/17 gemfibroziL [Lopid] 600 mg PO BID 11/01/16 10/08/19 07/29/17 hydroCHLOROthiazide [HCTZ] 25 mg PO QDAY 11/01/16 10/08/19 07/29/17 [place]-3S/Dha/Epa/Fish Oil [[place]-3 1,000 mg PO DAILY 05/11/19 10/08/19 Unknown Fish Oil 1,000 mg Sfgl] Previous Rx's Medication Instructions Recorded Last Taken Type ISOSORBIDE MONOnitrate [Imdur ER] 30 mg PO DAILY 30 Days tablet 08/01/17 Unknown Rx Losartan [Cozaar] 25 mg PO QDAY 30 Days tablet 08/01/17 Unknown Rx Nitroglycerin [Nitrostat] 0.4 mg SL Q5M PRN tablet 08/01/17 Unknown Rx carvediloL [Coreg] 12.5 mg PO BID 30 Days tablet 08/01/17 Unknown Rx Allergies Allergy/AdvReac Type Severity Reaction Status Date / Time captopril Allergy Unknown Verified 05/11/19 10:24 clopidogrel bisulfate Allergy Rash Verified 05/11/19 09:15 [From Plavix] Sulfa (Sulfonamide Allergy Anaphylaxis Verified 05/11/19 10:24 Antibiotics) amlodipine AdvReac Swelling Verified 05/11/19 10:24 cephalexin [From Keflex] AdvReac Hives Verified 05/11/19 10:24 nitroglycerin AdvReac Dizziness Verified 05/11/19 10:24 Heart Score - HEART Score History: Highly suspicious EKG: Non-specific Age: 45-65 Risk factors: > 3 risk factors or hx of atherosclerotic disease Troponin: < normal limit HEART Score: 6 ED Review of Systems ROS: Stated complaint: CHEST PAIN Other details as noted in HPI Constitutional: denies: chills, fever Eyes: denies: eye pain, eye discharge, vision change ENT: denies: ear pain, throat pain Respiratory: shortness of breath, SOB with exertion, SOB at rest. denies: cough, wheezing Cardiovascular: chest pain, dyspnea on exertion. denies: palpitations Endocrine: no symptoms reported Gastrointestinal: denies: abdominal pain, nausea, diarrhea Genitourinary: denies: urgency, dysuria Musculoskeletal: denies: back pain, joint swelling, arthralgia Skin: denies: rash, lesions Neurological: denies: headache, weakness, paresthesias Psychiatric: denies: anxiety, depression Hematological/Lymphatic: denies: easy bleeding, easy bruising ED Past Medical Hx - Past Medical History Previous Medical History?: Yes Hx Hypertension: Yes Hx Heart Attack/AMI: Yes Hx Congestive Heart Failure: Yes Hx Diabetes: No Hx Asthma: No Hx COPD: No Additional medical history: 6 stents, pacemaker/defibrillator - Surgical History Past Surgical History?: Yes Hx Coronary Stent: Yes (x6) Hx Pacemaker: Yes Hx Internal Defibrillator: Yes Hx Appendectomy: Yes Additional Surgical History: CABG, Cardiac stents, hernia repair, - Family History Family history: no significant - Social History Smoking Status: Former Smoker Substance Use Type: None - Medications Home Medications: Home Medications Medication Instructions Recorded Confirmed Last Taken Type Aspirin 325 mg PO QDAY 11/01/16 10/08/19 05/11/19 History Simvastatin [Zocor TAB] 40 mg PO DAILY 11/01/16 10/08/19 07/29/17 History Sotalol HCl [Sotalol] 120 mg PO BID 11/01/16 10/08/19 07/29/17 History gemfibroziL [Lopid] 600 mg PO BID 11/01/16 10/08/19 07/29/17 History hydroCHLOROthiazide [HCTZ] 25 mg PO QDAY 11/01/16 10/08/19 07/29/17 History ISOSORBIDE MONOnitrate [Imdur ER] 30 mg PO DAILY 30 Days tablet 08/01/17 10/08/19 Unknown Rx Losartan [Cozaar] 25 mg PO QDAY 30 Days tablet 08/01/17 10/08/19 Unknown Rx Nitroglycerin [Nitrostat] 0.4 mg SL Q5M PRN tablet 08/01/17 10/08/19 Unknown Rx carvediloL [Coreg] 12.5 mg PO BID 30 Days tablet 08/01/17 10/08/19 Unknown Rx [place]-3S/Dha/Epa/Fish Oil [[place]-3 1,000 mg PO DAILY 05/11/19 10/08/19 Unknown History Fish Oil 1,000 mg Sfgl] ED Physical Exam - General Limitations: No Limitations General appearance: alert, in no apparent distress - Head Head exam: Present: atraumatic, normocephalic - Eye Eye exam: Present: normal appearance - ENT ENT exam: Present: mucous membranes moist - Neck Neck exam: Present: normal inspection - Respiratory Respiratory exam: Present: normal lung sounds bilaterally. Absent: respiratory distress, wheezes, rales, chest wall tenderness, accessory muscle use - Cardiovascular Cardiovascular Exam: Present: regular rate, normal rhythm. Absent: systolic murmur, diastolic murmur, rubs, gallop - GI/Abdominal GI/Abdominal exam: Present: soft, normal bowel sounds - Rectal Rectal exam: Present: deferred - Extremities Exam Extremities exam: Present: normal inspection - Back Exam Back exam: Present: normal inspection - Neurological Exam Neurological exam: Present: alert, oriented X3 - Psychiatric Psychiatric exam: Present: normal affect, normal mood - Skin Skin exam: Present: warm, dry, intact, normal color. Absent: rash ED Course Vital Signs 10/08/19 10/08/19 10/08/19 20:27 20:52 21:00 Temperature 97.9 F Pulse Rate 82 85 85 Respiratory 18 11 L 10 L Rate Blood Pressure 142/87 132/71 O2 Sat by Pulse 97 97 96 Oximetry 10/08/19 10/08/19 10/08/19 21:07 21:15 21:31 Temperature Pulse Rate 89 83 Respiratory 18 13 17 Rate Blood Pressure 134/72 133/57 O2 Sat by Pulse 95 94 Oximetry 10/08/19 10/08/19 10/08/19 21:45 22:00 22:15 Temperature Pulse Rate 85 74 80 Respiratory 14 15 15 Rate Blood Pressure 133/57 136/68 140/69 O2 Sat by Pulse 94 95 96 Oximetry 10/08/19 10/08/19 10/08/19 22:31 22:45 23:00 Temperature Pulse Rate 72 88 71 Respiratory 22 14 15 Rate Blood Pressure 134/48 139/51 133/80 O2 Sat by Pulse 95 94 95 Oximetry 10/08/19 10/08/19 10/08/19 23:15 23:31 23:51 Temperature Pulse Rate 74 71 75 Respiratory 11 L 13 15 Rate Blood Pressure 130/81 130/81 126/75 O2 Sat by Pulse 95 97 92 Oximetry 10/09/19 00:01 Temperature Pulse Rate 77 Respiratory 17 Rate Blood Pressure 149/90 O2 Sat by Pulse 97 Oximetry - Reevaluation(s) Reevaluation #1: Patient states his chest pain has improved. I discussed all results with patient. I discussed plan of care with patient. Patient agrees with plan of care and admission. Patient to be admitted to the hospitalist service. 10/08/19 22:37 - Consultations Consultation #1: Hospitalist consulted for admission. Hospitalist to admit patient. Bridge orders placed. 10/08/19 22:38 NATALIE score - Natalie Score Age > 65: (0) No Aspirin use within the Past 7 Days: (1) Yes 3 or more CAD Risk Factors: (1) Yes 2 or more Angina events in past 24 hrs: (0) No Known CAD with more than 50% Stenosis: (1) Yes Elevated Cardiac Markers: (0) No ST Deviation Greater than 0.5mm: (0) No NATALIE Score: 3 ED Medical Decision Making - Lab Data Result diagrams: 10/08/19 20:48 10/08/19 20:48 - EKG Data -: EKG Interpreted by Me EKG shows normal: sinus rhythm, axis, intervals, ST-T waves Rate: normal - EKG Data Interpretation: other (prolonged qrs) - Radiology Data Radiology results: report reviewed CHEST 1 VIEW INDICATION: Chest Pain. COMPARISON: 05/11/2019 FINDINGS: Support devices: Unipolar cardiac lead. Heart: Within normal limits. Lungs/Pleura: No acute air space or interstitial disease. Additional findings: None. IMPRESSION: 1. No acute findings. - Medical Decision Making Patient is a 59-year-old male that presents emergency with complaints of chest pain, dyspnea on exertion, shortness of breath. Patient was brought in by EMS was given aspirin and nitro in route. Patient was given morphine in the ER. Patient was also placed on oxygen. Patient has a long history of CAD and cardiac stents and CT. Patient's chest x-ray negative for acute findings. Patient's EKG is negative for STEMI or acute findings. Patient responded well to treatment and his chest pain improved. Patient admitted to the hospitalist service. Patient's labs unremarkable. - Differential Diagnosis cp. sob. garcia. acs. Critical Care Time: Yes Critical care time in (mins) excluding proc time.: 35 Critical care attestation.: If time is entered above; I have spent that time in minutes in the direct care of this critically ill patient, excluding procedure time. Critical Care Time: 35 minutes ED Disposition Clinical Impression: SOB (shortness of breath), GARCIA (dyspnea on exertion) Coronary artery disease Qualifiers: Coronary Disease-Associated Artery/Lesion type: [place] artery [place] vs. transplanted heart: [place] heart Associated angina: angina presence unspecified Qualified Code(s): I25.10 - Atherosclerotic heart disease of [place] coronary artery without angina pectoris Chest pain Qualifiers: Chest pain type: unspecified Qualified Code(s): R07.9 - Chest pain, unspecified Disposition: DC-09 OP ADMIT IP TO THIS HOSP Is pt being admited?: Yes Does the pt Need Aspirin: No Condition: Critical Time of Disposition: 22:39
--- NOTE | 2019-10-08 21:02 | XRay Report ---
CHEST 1 VIEW INDICATION: Chest Pain. COMPARISON: 05/11/2019 FINDINGS: Support devices: Unipolar cardiac lead. Heart: Within normal limits. Lungs/Pleura: No acute air space or interstitial disease. Additional findings: None. IMPRESSION: 1. No acute findings. Signer Name: Edy Ballard MD Signed: 10/08/2019 8:57 PM Workstation Name: [id number]
[2019-10-08 21:41] LABS: Basophils # (Auto) 0.1 K/mm3 (0.0-0.1); Basophils % (Auto) 1.3 % (0.0-1.8); Eosinophils # (Auto) 0.2 K/mm3 (0.0-0.4); Eosinophils % (Auto) 3.4 % (0.0-4.3); Hematocrit 45.9 % (35.5-45.6); Hemoglobin 16.3 gm/dl (11.8-15.2); Lymphocytes # (Auto) 2.1 K/mm3 (1.2-5.4); Lymphocytes % (Auto) 28.2 % (13.4-35.0); Mean Corpuscular HGB Conc 35 % (32-34); Mean Corpuscular Volume 89 fl (84-94); Monocytes # (Auto) 0.5 K/mm3 (0.0-0.8); Monocytes % (Auto) 7.3 % (0.0-7.3); Platelet Count 257 K/mm3 (140-440); Red Blood Count 5.18 M/mm3 (3.65-5.03); Red Cell Distribution Width 13.5 % (13.2-15.2)
[2019-10-08 21:52] LABS: Creatine Kinase MB 1.7 ng/mL (0.0-4.0)
[2019-10-08 21:56] LABS: BUN/Creatinine Ratio 11; Blood Urea Nitrogen 8 mg/dL (9-20); Calcium 9.7 mg/dL (8.4-10.2); Hemolysis Index 28
[2019-10-08 21:57] LABS: Alanine Aminotransferase 24 units/L (7-56); Albumin 3.9 g/dL (3.9-5)
[2019-10-08 21:59] LABS: Bilirubin,Direct < 0.2 mg/dL (0-0.2)
--- NOTE | 2019-10-08 22:51 | History and Physical Report ---
Medications and Allergies Allergies Allergy/AdvReac Type Severity Reaction Status Date / Time captopril Allergy Unknown Verified 05/11/19 10:24 clopidogrel bisulfate Allergy Rash Verified 05/11/19 09:15 [From Plavix] Sulfa (Sulfonamide Allergy Anaphylaxis Verified 05/11/19 10:24 Antibiotics) amlodipine AdvReac Swelling Verified 05/11/19 10:24 cephalexin [From Keflex] AdvReac Hives Verified 05/11/19 10:24 nitroglycerin AdvReac Dizziness Verified 05/11/19 10:24 Home Medications Medication Instructions Recorded Confirmed Last Taken Type Aspirin 325 mg PO QDAY 11/01/16 10/08/19 05/11/19 History Simvastatin [Zocor TAB] 40 mg PO DAILY 11/01/16 10/08/19 07/29/17 History Sotalol HCl [Sotalol] 120 mg PO BID 11/01/16 10/08/19 07/29/17 History gemfibroziL [Lopid] 600 mg PO BID 11/01/16 10/08/19 07/29/17 History hydroCHLOROthiazide [HCTZ] 25 mg PO QDAY 11/01/16 10/08/19 07/29/17 History ISOSORBIDE MONOnitrate [Imdur ER] 30 mg PO DAILY 30 Days tablet 08/01/17 0 10/08/19 Unknown Rx Losartan [Cozaar] 25 mg PO QDAY 30 Days tablet 08/01/17 10/08/19 Unknown Rx Nitroglycerin [Nitrostat] 0.4 mg SL Q5M PRN tablet 08/01/17 10/08/19 Unknown Rx carvediloL [Coreg] 12.5 mg PO BID 30 Days tablet 08/01/17 10/08/19 Unknown Rx [place]-3S/Dha/Epa/Fish Oil [[place]-3 1,000 mg PO DAILY 05/11/19 10/08/19 Unknown History Fish Oil 1,000 mg Sfgl] Exam - Constitutional Vitals: Temp Pulse Resp BP Pulse Ox 97.9 F 82 18 142/87 97 10/08/19 20:27 10/08/19 20:27 10/08/19 21:07 10/08/19 20:27 10/08/19 20:27 Results - Labs CBC & Chem 7: 10/08/19 20:48 10/08/19 20:48 Labs: Abnormal lab results 10/08/19 10/08/19 Range/Units 20:48 20:48 RBC 5.18 H (3.65-5.03) M/mm3 Hgb 16.3 H (11.8-15.2) gm/dl Hct 45.9 H (35.5-45.6) % MCHC 35 H (32-34) % Carbon Dioxide 21 L (22-30) mmol/L BUN 8 L (9-20) mg/dL Creatinine 0.7 L (0.8-1.5) mg/dL Glucose 278 H (75-100) mg/dL
[2019-10-08] MEDS ORDERED: MORPHINE 2 MG/1 ML INJ IV PRN (23:43)
[2019-10-08] MEDS ORDERED: ACETAMINOPHEN 325 MG TAB PO PRN (23:43)
[2019-10-08] MEDS ORDERED: ONDANSETRON 4 MG/2 ML INJ IV PRN (23:43)
--- NOTE | 2019-10-08 23:45 | History and Physical Report ---
History of Present Illness Date of admission: 10/08/19 22:43 History of present illness: 59-year-old man with a history of hypertension, hyperlipidemia, coronary artery disease, status post 3 stents, AShannen augustin comes to the emergency room with complaints of chest pain that started today. Pain is in the left substernal ar ea which he described as sharp pain, constant, intensity 5/10, radiating up into his chest, relieved with nitroglycerin. He cannot identify exacerbating factors. he denies nausea, diaphoresis, no shortness breath or palpitation. He had a stress test done in April of last year, states he saw Dr. Baltazar yesterday. Patient is being admitted for chest pain Review Of Systems: Constitutional: no weight loss, fever, chills Ears, eyes, nose, mouth and throat: no nasal congestion, no nasal discharge, no sinus pressure, blurry vision, diplopia Neck: No neck pain or rigidity. Cardiovascular: No palpitations Respiratory: No shortness of breath, cough Gastrointestinal: No hematochezia Genitourinary : no dysuria, frequency Musculoskeletal: no muscle ache , joint pain Integumentary: no rash, no pruritis Neurological: no parathesias, focal weakness Endocrine: no cold or heat intolerance, no polyuria or polydipsia Hematologic/Lymphatic: no easy bruising, no easy bleeding, no gland swelling Allergic/Immunologic: no urticaria, no angioedema. PAST MEDICAL HISTORY: hypertension, hyperlipidemia, coronary artery disease, status post 3 stents, A. charli PAST SURGICAL HISTORY: Pacemaker, AICD, CABG SOCIAL HISTORY: Denies alcohol, tobacco, drugs FAMILY HISTORY: Hypertension, coronary artery disease Medications and Allergies Allergies Allergy/AdvReac Type Severity Reaction Status Date / Time captopril Allergy Unknown Verified 05/11/19 10:24 clopidogrel bisulfate Allergy Rash Verified 05/11/19 09:15 [From Plavix] Sulfa (Sulfonamide Allergy Anaphylaxis Verified 05/11/19 10:24 Antibiotics) amlodipine AdvReac Swelling Verified 05/11/19 10:24 cephalexin [From Keflex] AdvReac Hives Verified 05/11/19 10:24 nitroglycerin AdvReac Dizziness Verified 05/11/19 10:24 Home Medications Medication Instructions Recorded Confirmed Last Taken Type Aspirin 325 mg PO QDAY 03/09/17 02/13/20 09/16/19 History Simvastatin [Zocor TAB] 40 mg PO DAILY 11/01/16 10/08/19 07/29/17 History Sotalol HCl [Sotalol] 120 mg PO BID 11/01/16 10/08/19 07/29/17 History gemfibroziL [Lopid] 600 mg PO BID 11/01/16 10/08/19 07/29/17 History hydroCHLOROthiazide [HCTZ] 25 mg PO QDAY 11/01/16 10/08/19 07/29/17 History ISOSORBIDE MONOnitrate [Imdur ER] 30 mg PO DAILY 30 Days tablet 08/01/17 10/08/19 Unknown Rx Losartan [Cozaar] 25 mg PO QDAY 30 Days tablet 08/01/17 10/08/19 Unknown Rx Nitroglycerin [Nitrostat] 0.4 mg SL Q5M PRN tablet 08/01/17 10/08/19 Unknown Rx carvediloL [Coreg] 12.5 mg PO BID 30 Days tablet 08/01/17 10/08/19 Unknown Rx [place]-3S/Dha/Epa/Fish Oil [[place]-3 1,000 mg PO DAILY 05/11/19 10/08/19 Unknown History Fish Oil 1,000 mg Sfgl] Active Meds: Active Medications Acetaminophen (Tylenol) 650 mg PO Q4H PRN PRN Reason: Pain MILD(1-3)/Fever >100.5/GARCIA Morphine Sulfate (Morphine) 2 mg IV Q4H PRN PRN Reason: Pain, Moderate (4-6) Ondansetron HCl (Zofran) 4 mg IV Q8H PRN PRN Reason: Nausea And Vomiting Sodium Chloride (Sodium Chloride Flush Syringe 10 Ml) 10 ml IV BID JUDIT Sodium Chloride (Sodium Chloride Flush Syringe 10 Ml) 10 ml IV PRN PRN PRN Reason: LINE FLUSH Exam - Physical Exam Narrative exam: Gen. appearance: Patient lying in bed, no apparent distress HEENT: Normocephalic, atraumatic, pupils equally round and reactive to light, extraocular movement intact, and no sclericterus,. No JVD or thyromegaly or nodule,neck supple, no carotid bruit ,mucous membranes moist, no exudate or erythema Heart: S1, S2, regular rate and rhythm Lungs: Clear bilaterally, breathing comfortable Abdomen: Positive bowel sounds, nontender, nondistended, no organomegaly Extremity: no edema, cyanosis, clubbing Skin: No rash, nodules, warm, dry Neuro: speech is fluent, moves extremities, sensory intact - Constitutional Vitals: Temp Pulse Resp BP Pulse Ox 97.9 F 71 13 130/81 97 10/08/19 20:27 10/08/19 23:31 10/08/19 23:31 10/08/19 23:31 10/08/19 23:31 Results - Labs CBC & Chem 7: 10/08/19 20:48 10/08/19 20:48 Labs: Abnormal lab results 10/08/19 10/08/19 Range/Units 20:48 20:48 RBC 5.18 H (3.65-5.03) M/mm3 Hgb 16.3 H (11.8-15.2) gm/dl Hct 45.9 H (35.5-45.6) % MCHC 35 H (32-34) % Carbon Dioxide 21 L (22-30) mmol/L BUN 8 L (9-20) mg/dL Creatinine 0.7 L (0.8-1.5) mg/dL Glucose 278 H (75-100) mg/dL - Imaging and Cardiology EKG: report reviewed Chest x-ray: report reviewed Assessment and Plan Chest pain/coronary artery disease Check cardiac enzymes, consult cardiology Start IV morphine, aspirin, Nitropaste, cardiac medicationS A. fib, stable, in normal sinus rhythm Hypertension Continue outpatient medications Hyperlipidemia, statin continue statin DVT prophylaxis
[2019-10-09 00:16] LABS: Creatine Kinase MB 1.6 ng/mL (0.0-4.0)
[2019-10-09 06:09] LABS: Basophils # (Auto) 0.1 K/mm3 (0.0-0.1); Basophils % (Auto) 1.1 % (0.0-1.8); Eosinophils # (Auto) 0.3 K/mm3 (0.0-0.4); Hematocrit 47.3 % (35.5-45.6); Hemoglobin 15.9 gm/dl (11.8-15.2); Lymphocytes # (Auto) 2.6 K/mm3 (1.2-5.4); Lymphocytes % (Auto) 31.7 % (13.4-35.0); Mean Corpuscular HGB Conc 34 % (32-34); Mean Corpuscular Volume 91 fl (84-94); Monocytes # (Auto) 0.9 K/mm3 (0.0-0.8); Monocytes % (Auto) 10.7 % (0.0-7.3); Platelet Count 255 K/mm3 (140-440); Red Blood Count 5.21 M/mm3 (3.65-5.03); Red Cell Distribution Width 13.8 % (13.2-15.2)
[2019-10-09 06:21] LABS: Creatine Kinase MB 1.5 ng/mL (0.0-4.0)
[2019-10-09 06:23] LABS: BUN/Creatinine Ratio 17; Blood Urea Nitrogen 12 mg/dL (9-20); Calcium 9.7 mg/dL (8.4-10.2); Hemolysis Index 13
--- NOTE | 2019-10-09 09:39 | Consultation ---
History of Present Illness Consult date: 10/09/19 Consult reason: chest pain History of present illness: 59 year old male presenting with acute onset chest pain lasting 15 min induration on the left side of the chest with no radiation or associated symptoms. Patient is known to have recurrent episodes of chest pain and chronic stable angina from underlying CAD. 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 A recent stress test was performed 04/2019 showing fixed inferior wall defect with no ischemia. ECG showing no ischemic changes when compared to previous and troponins are negative. Patient is currently asymptomatic and able to walk down and up the hallway without any distress. Past History Past Medical History: acute [place], atrial fib, CAD, heart failure, hypertension, hyperlipidemia Past Surgical History: CABG, PTCA Social history: denies: smoking, alcohol abuse Family history: CAD, hypertension Medications and Allergies Allergies Allergy/AdvReac Type Severity Reaction Status Date / Time captopril Allergy Unknown Verified 05/11/19 10:24 clopidogrel bisulfate Allergy Rash Verified 05/11/19 09:15 [From Plavix] Sulfa (Sulfonamide Allergy Anaphylaxis Verified 05/11/19 10:24 Antibiotics) amlodipine AdvReac Swelling Verified 05/11/19 10:24 cephalexin [From Keflex] AdvReac Hives Verified 05/11/19 10:24 nitroglycerin AdvReac Dizziness Verified 05/11/19 10:24 Home Medications Medication Instructions Recorded Confirmed Last Taken Type Aspirin 325 mg PO QDAY 11/01/16 10/08/19 05/11/19 History Simvastatin [Zocor TAB] 40 mg PO DAILY 11/01/16 10/08/19 07/29/17 History Sotalol HCl [Sotalol] 120 mg PO BID 11/01/16 10/08/19 07/29/17 History gemfibroziL [Lopid] 600 mg PO BID 11/01/16 10/08/19 07/29/17 History hydroCHLOROthiazide [HCTZ] 25 mg PO QDAY 11/01/16 10/08/19 07/29/17 History ISOSORBIDE MONOnitrate [Imdur ER] 30 mg PO DAILY 30 Days tablet 08/01/17 10/08/19 Unknown Rx Losartan [Cozaar] 25 mg PO QDAY 30 Days tablet 08/01/17 10/08/19 Unknown Rx Nitroglycerin [Nitrostat] 0.4 mg SL Q5M PRN tablet 08/01/17 10/08/19 Unknown Rx carvediloL [Coreg] 12.5 mg PO BID 30 Days tablet 08/01/17 10/08/19 Unknown Rx [place]-3S/Dha/Epa/Fish Oil [[place]-3 1,000 mg PO DAILY 05/11/19 10/08/19 Unknown History Fish Oil 1,000 mg Sfgl] Active Meds: Active Medications Acetaminophen (Tylenol) 650 mg PO Q4H PRN PRN Reason: Pain MILD(1-3)/Fever >100.5/GARCIA Aspirin (Aspirin) 325 mg PO QDAY [facility] Carvedilol (Coreg) 12.5 mg PO BID [facility] Fish Oil (Fish Oil) 1,000 mg PO DAILY [facility] Gemfibrozil (Lopid) 600 mg PO BID [facility] Hydrochlorothiazide (Hctz) 25 mg PO QDAY [facility] Losartan Potassium (Cozaar) 25 mg PO QDAY [facility] Morphine Sulfate (Morphine) 2 mg IV Q4H PRN PRN Reason: Pain, Moderate (4-6) Ondansetron HCl (Zofran) 4 mg IV Q8H PRN PRN Reason: Nausea And Vomiting Pravastatin Sodium (Pravachol) 80 mg PO QHS [facility] Sodium Chloride (Sodium Chloride Flush Syringe 10 Ml) 10 ml IV BID [facility] Sodium Chloride (Sodium Chloride Flush Syringe 10 Ml) 10 ml IV PRN PRN PRN Reason: LINE FLUSH Sotalol HCl (Betapace) 120 mg PO BID [facility] Review of Systems All systems: negative Physical Examination Vital Signs Temp Pulse Resp BP Pulse Ox 97.9 F 82 18 142/87 97 10/08/19 20:27 10/08/19 20:27 10/08/19 20:27 10/08/19 20:27 10/08/19 20:27 General appearance: no acute distress HEENT: Positive: PERRL Neck: Positive: neck supple Cardiac: Positive: Reg Rate and Rhythm Lungs: Positive: Normal Exam Abdomen: Positive: Soft Extremities: Absent: edema Results 10/09/19 04:53 10/09/19 04:53 Cardiac Enzymes 02/13/20 02/13/20 02/13/20 Range/Units 20:48 20:48 20:48 WBC 7.4 (4.5-11.0) K/mm3 RBC 5.18 H (3.65-5.03) M/mm3 Hgb 16.3 H (11.8-15.2) gm/dl Hct 45.9 H (35.5-45.6) % MCV 89 (84-94) fl MCH 31 (28-32) pg MCHC 35 H (32-34) % RDW 13.5 (13.2-15.2) % Plt Count 257 (140-440) K/mm3 Lymph % (Auto) 28.2 (13.4-35.0) % Stark % (Auto) 7.3 (0.0-7.3) % Eos % (Auto) 3.4 (0.0-4.3) % Baso % (Auto) 1.3 (0.0-1.8) % Lymph # 2.1 (1.2-5.4) K/mm3 Stark # 0.5 (0.0-0.8) K/mm3 Eos # 0.2 (0.0-0.4) K/mm3 Baso # 0.1 (0.0-0.1) K/mm3 Seg Neutrophils % 59.8 (40.0-70.0) % Seg Neutrophils # 4.4 (1.8-7.7) K/mm3 Sodium 140 (137-145) mmol/L Potassium 3.8 (3.6-5.0) mmol/L Chloride 102.8 (98-107) mmol/L Carbon Dioxide 21 L (22-30) mmol/L Anion Gap 20 mmol/L BUN 8 L (9-20) mg/dL Creatinine 0.7 L (0.8-1.5) mg/dL Estimated GFR > 60 ml/min BUN/Creatinine Ratio 11 % Glucose 278 H (75-100) mg/dL Calcium 9.7 (8.4-10.2) mg/dL Total Bilirubin 0.30 (0.1-1.2) mg/dL Direct Bilirubin < 0.2 (0-0.2) mg/dL Indirect Bilirubin 0.1 mg/dL AST 27 (5-40) units/L ALT 24 (7-56) units/L Alkaline Phosphatase 79 (35-129) units/L Total Creatine Kinase 106 (55-170) units/L CK-MB (CK-2) 1.7 (0.0-4.0) ng/mL CK-MB (CK-2) Rel Index 1.6 (0-4) Troponin T < 0.010 (0.00-0.029) ng/mL Total Protein 7.2 (6.3-8.2) g/dL Albumin 3.9 (3.9-5) g/dL Albumin/Globulin Ratio 1.2 % 10/08/19 10/09/19 10/09/19 Range/Units 23:30 04:53 04:53 WBC 8.1 (4.5-11.0) K/mm3 RBC 5.21 H (3.65-5.03) M/mm3 Hgb 15.9 H (11.8-15.2) gm/dl Hct 47.3 H (35.5-45.6) % MCV 91 (84-94) fl MCH 31 (28-32) pg MCHC 34 (32-34) % RDW 13.8 (13.2-15.2) % Plt Count 255 (140-440) K/mm3 Lymph % (Auto) 31.7 (13.4-35.0) % Stark % (Auto) 10.7 H (0.0-7.3) % Eos % (Auto) 4.0 (0.0-4.3) % Baso % (Auto) 1.1 (0.0-1.8) % Lymph # 2.6 (1.2-5.4) K/mm3 Stark # 0.9 H (0.0-0.8) K/mm3 Eos # 0.3 (0.0-0.4) K/mm3 Baso # 0.1 (0.0-0.1) K/mm3 Seg Neutrophils % 52.5 (40.0-70.0) % Seg Neutrophils # 4.3 (1.8-7.7) K/mm3 Sodium 141 (137-145) mmol/L Potassium 3.9 (3.6-5.0) mmol/L Chloride 102.7 (98-107) mmol/L Carbon Dioxide 22 (22-30) mmol/L Anion Gap 20 mmol/L BUN 12 (9-20) mg/dL Creatinine 0.7 L (0.8-1.5) mg/dL Estimated GFR > 60 ml/min BUN/Creatinine Ratio 17 % Glucose 114 H (75-100) mg/dL Calcium 9.7 (8.4-10.2) mg/dL Total Bilirubin (0.1-1.2) mg/dL Direct Bilirubin (0-0.2) mg/dL Indirect Bilirubin mg/dL AST (5-40) units/L ALT (7-56) units/L Alkaline Phosphatase (35-129) units/L Total Creatine Kinase 101 (55-170) units/L CK-MB (CK-2) 1.6 (0.0-4.0) ng/mL CK-MB (CK-2) Rel Index 1.5 (0-4) Troponin T < 0.010 (0.00-0.029) ng/mL Total Protein (6.3-8.2) g/dL Albumin (3.9-5) g/dL Albumin/Globulin Ratio % /14/ Range/Units 04:53 WBC (4.5-11.0) K/mm3 RBC (3.65-5.03) M/mm3 Hgb (11.8-15.2) gm/dl Hct (35.5-45.6) % MCV (84-94) fl MCH (28-32) pg MCHC (32-34) % RDW (13.2-15.2) % Plt Count (140-440) K/mm3 Lymph % (Auto) (13.4-35.0) % Stark % (Auto) (0.0-7.3) % Eos % (Auto) (0.0-4.3) % Baso % (Auto) (0.0-1.8) % Lymph # (1.2-5.4) K/mm3 Stark # (0.0-0.8) K/mm3 Eos # (0.0-0.4) K/mm3 Baso # (0.0-0.1) K/mm3 Seg Neutrophils % (40.0-70.0) % Seg Neutrophils # (1.8-7.7) K/mm3 Sodium (137-145) mmol/L Potassium (3.6-5.0) mmol/L Chloride (98-107) mmol/L Carbon Dioxide (22-30) mmol/L Anion Gap mmol/L BUN (9-20) mg/dL Creatinine (0.8-1.5) mg/dL Estimated GFR ml/min BUN/Creatinine Ratio % Glucose (75-100) mg/dL Calcium (8.4-10.2) mg/dL Total Bilirubin (0.1-1.2) mg/dL Direct Bilirubin (0-0.2) mg/dL Indirect Bilirubin mg/dL AST (5-40) units/L ALT (7-56) units/L Alkaline Phosphatase (35-129) units/L Total Creatine Kinase 88 (55-170) units/L CK-MB (CK-2) 1.5 (0.0-4.0) ng/mL CK-MB (CK-2) Rel Index 1.7 (0-4) Troponin T < 0.010 (0.00-0.029) ng/mL Total Protein (6.3-8.2) g/dL Albumin (3.9-5) g/dL Albumin/Globulin Ratio % CBC 10/08/19 10/09/19 Range/Units 20:48 04:53 WBC 7.4 8.1 (4.5-11.0) K/mm3 RBC 5.18 H 5.21 H (3.65-5.03) M/mm3 Hgb 16.3 H 15.9 H (11.8-15.2) gm/dl Hct 45.9 H 47.3 H (35.5-45.6) % Plt Count 257 255 (140-440) K/mm3 Lymph # 2.1 2.6 (1.2-5.4) K/mm3 Stark # 0.5 0.9 H (0.0-0.8) K/mm3 Eos # 0.2 0.3 (0.0-0.4) K/mm3 Baso # 0.1 0.1 (0.0-0.1) K/mm3 Comprehensive Metabolic Panel 10/08/19 10/08/19 10/09/19 Range/Units 20:48 20:48 04:53 Sodium 140 141 (137-145) mmol/L Potassium 3.8 3.9 (3.6-5.0) mmol/L Chloride 102.8 102.7 (98-107) mmol/L Carbon Dioxide 21 L 22 (22-30) mmol/L BUN 8 L 12 (9-20) mg/dL Creatinine 0.7 L 0.7 L (0.8-1.5) mg/dL Glucose 278 H 114 H (75-100) mg/dL Calcium 9.7 9.7 (8.4-10.2) mg/dL Direct Bilirubin < 0.2 (0-0.2) mg/dL Indirect Bilirubin 0.1 mg/dL AST 27 (5-40) units/L ALT 24 (7-56) units/L Alkaline Phosphatase 79 (35-129) units/L Total Protein 7.2 (6.3-8.2) g/dL Albumin 3.9 (3.9-5) g/dL - EKG Interpretation EKG: sinus rhythm EKG interpretations - Telemetry EKG Rhythm: Sinus Rhythm Assessment and Plan Chest pain, recurrent Chronic stable angina No ischemia by MPI 04/2019 - Fixed inferior wall defect with akinesis Hx of CAD with CABG x1 with robotic MEREDITH to LAD 10/2016 Plavix allergy 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 He is taking sotalol for suppression (normal QTc on ECG) patient is considered a poor candidate for anticoagulation due to prior GI bleed and is currently treated with aspirin only. Hx of ischemic cardiomyopathy EF improved to 35-40% on echo 04/2017 Presence of indwelling cardiac defibrillator, [employer] single chamber generator replaced 2012. 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
[2019-10-09] MEDS ORDERED: ASPIRIN 325 MG TAB PO SCH (10:00)
[2019-10-09] MEDS ORDERED: OMEGA-3 FATTY ACIDS/FISH OIL 1 GRAM CAP PO SCH (10:00)
[2019-10-09] MEDS ORDERED: NON-FORMULARY EACH (Simvastatin 40 MG) PO SCH (10:00)
[2019-10-09] MEDS ORDERED: LOSARTAN 50 MG TAB PO SCH (10:00)
[2019-10-09] MEDS ORDERED: GEMFIBROZIL 600 MG TAB PO SCH (10:00)
[2019-10-09] MEDS ORDERED: hydroCHLOROthiazide 25 MG TAB PO SCH (10:00)
[2019-10-09] MEDS ORDERED: carvediloL 12.5 MG TAB PO SCH (10:00)
[2019-10-09 10:20] VITALS: BP 140/86
--- NOTE | 2019-10-09 14:37 | Discharge Summary ---
Providers - Providers Date of Admission: 10/08/19 22:43 Date of discharge: 10/09/19 Attending physician: LUCIO GAITAN 10/08/19 23:43 Consult to Physician [CONS] Routine Comment: Consulting Provider: ASHKAN JACOBSON Physician Instructions: Reason For Exam: cp Primary care physician: REYNALDO GUTHRIE Hospitalization Condition: Fair Disposition: DC-01 TO HOME OR SELFCARE Exam - Constitutional Vitals: Temp Pulse Resp BP Pulse Ox 98.2 F 88 20 140/86 92 10/09/19 08:01 10/09/19 10:24 10/09/19 13:00 10/09/19 10:24 10/09/19 10:00 Plan Activity: advance as tolerated Plan of Treatment: 1.Follow up with PCP in 1 week. 2.Follow up with Cardiology in 1 week Follow up with: REYNALDO GUTHIRE MD [Primary Care Provider] - 7 Days
[2019-10-09] MEDS ORDERED: PRAVASTATIN 80 MG TAB PO SCH (22:00)
== END 2019-10-09 15:30 | disposition home or self-care (01) ==
LOC: ED 20:20 → 4A 22:43
PROVIDERS: ADMIT Internal Medicine; ATTEND Internal Medicine
DX: I25.10 Atherosclerotic heart disease of native coronary artery without angina pectoris (principal); I48.0 Paroxysmal atrial fibrillation; I11.0 Hypertensive heart disease with heart failure; I50.9 Heart failure, unspecified; I25.2 Old myocardial infarction; I25.5 Ischemic cardiomyopathy; E78.5 Hyperlipidemia, unspecified; Z87.891 Personal history of nicotine dependence; Z95.5 Presence of coronary angioplasty implant and graft; Z95.0 Presence of cardiac pacemaker; Z95.1 Presence of aortocoronary bypass graft; Z79.82 Long term (current) use of aspirin; Z79.899 Other long term (current) drug therapy; Z88.2 Allergy status to sulfonamides; Z88.1 Allergy status to other antibiotic agents; Z88.8 Allergy status to other drugs, medicaments and biological substances
CPT/HCPCS: 36415; 71045; 80048; 80076; 82550; 82553; 84484; 85025; 87116; 93005; 93010; 96374; 99291; G0378; J2270

== ENCOUNTER 2020-05-31 21:16 | Observation (INO) | payer MEDICARE ==
[2020-05-31] MEDS ORDERED: ASPIRIN 325 MG TAB PO ONE (23:01)
[2020-05-31 23:49] LABS: Basophils # (Auto) 0.1 K/mm3 (0.0-0.1); Basophils % (Auto) 1.1 % (0.0-1.8); Eosinophils # (Auto) 0.2 K/mm3 (0.0-0.4); Eosinophils % (Auto) 1.9 % (0.0-4.3); Hematocrit 48.2 % (35.5-45.6); Hemoglobin 16.4 gm/dl (11.8-15.2); Lymphocytes # (Auto) 3.2 K/mm3 (1.2-5.4); Lymphocytes % (Auto) 31.8 % (13.4-35.0); Mean Corpuscular HGB Conc 34 % (32-34); Mean Corpuscular Volume 92 fl (84-94); Monocytes # (Auto) 0.9 K/mm3 (0.0-0.8); Monocytes % (Auto) 8.5 % (0.0-7.3); Platelet Count 309 K/mm3 (140-440); Red Blood Count 5.25 M/mm3 (3.65-5.03)
--- NOTE | 2020-05-31 23:54 | XRay Report ---
CHEST 1 VIEW INDICATION: Chest Pain COMPARISON: 10/08/2019 FINDINGS: Support devices: Unchanged. Heart: Normal and unchanged Lungs/Pleura: No acute pulmonary or pleural findings. IMPRESSION: 1. No acute disease and no interval change. Signer Name: Be Bird MD Signed: 05/31/2020 11:50 PM Workstation Name: [id number]
[2020-06-01 00:13] LABS: BUN/Creatinine Ratio 18; Blood Urea Nitrogen 16 mg/dL (9-20); Calcium 10.4 mg/dL (8.4-10.2); Hemolysis Index 18
[2020-06-01] MEDS ORDERED: ONDANSETRON 4 MG/2 ML INJ IV ONE (01:23)
[2020-06-01] MEDS ORDERED: MORPHINE 4 MG/1 ML INJ IV ONE (01:23)
--- NOTE | 2020-06-01 01:27 | Emergency Department Report ---
HPI - General Chief Complaint: Chest Pain Time Seen by Provider: 06/01/20 00:58 - HPI HPI: Room 22 The patient is a 60-year-old male present with chief complaint of chest pain. The patient states this evening at 19: 15 while at rest he developed substernal chest pain that felt as though someone had a foot on top of him. Patient states the pain was mostly constant became intermittent after aspirin and nitro. Patient admits to diaphoresis, shortness of breath and nausea without vomiting associated with this chest pain. Patient states he has had 6 cardiac stents placed in addition to a CABG (CABG occurred 2 years ago). Patient currently gives his chest pain a score of 1.5/10 ED Past Medical Hx - Past Medical History Hx Hypertension: Yes Hx Heart Attack/AMI: Yes Hx Congestive Heart Failure: Yes Additional medical history: 6 stents, pacemaker/defibrillator - Surgical History Hx Coronary Stent: Yes (x6) Hx Pacemaker: Yes Hx Internal Defibrillator: Yes Hx Appendectomy: Yes Additional Surgical History: CABG, Cardiac stents, hernia repair, - Family History Family history: no significant - Social History Smoking Status: Former Smoker Substance Use Type: None (Denies illicit drug use) - Medications Home Medications: Home Medications Medication Instructions Recorded Confirmed Last Taken Type Aspirin 325 mg PO QDAY 11/01/16 06/01/20 05/31/20 History Simvastatin [Zocor TAB] 40 mg PO DAILY 11/01/16 06/01/20 05/31/20 History Sotalol HCl [Sotalol] 120 mg PO BID 11/01/16 06/01/20 05/31/20 History gemfibroziL [Lopid] 600 mg PO BID 11/01/16 06/01/20 05/31/20 History hydroCHLOROthiazide [HCTZ] 25 mg PO QDAY 11/01/16 06/01/20 05/31/20 History ISOSORBIDE MONOnitrate [Imdur ER] 30 mg PO DAILY 30 Days tablet 08/01/17 06/01/20 05/31/20 Rx Losartan [Cozaar] 25 mg PO QDAY 30 Days tablet 08/01/17 06/01/20 05/31/20 Rx Nitroglycerin [Nitrostat] 0.4 mg SL Q5M PRN tablet 12/07/17 10/07/20 10/06/20 Rx carvediloL [Coreg] 12.5 mg PO BID 30 Days tablet 08/01/17 06/01/20 05/31/20 Rx [place]-3S/Dha/Epa/Fish Oil [[place]-3 1,000 mg PO DAILY 05/11/19 06/01/20 Unknown History Fish Oil 1,000 mg Sfgl] ED Review of Systems ROS: Stated complaint: CHEST PAIN Other details as noted in HPI Constitutional: diaphoresis Respiratory: shortness of breath Cardiovascular: chest pain Endocrine: no symptoms reported Gastrointestinal: nausea. denies: vomiting Physical Exam - Physical Exam Physical Exam: GENERAL: The patient is well-developed well-nourished male lying on stretcher not appearing to be in acute distress. [] HEENT: Normocephalic. Atraumatic. Extraocular motions are intact. Patient has moist mucous membranes. NECK: Supple. Trachea midline CHEST/LUNGS: Clear to auscultation. There is no respiratory distress noted. HEART/CARDIOVASCULAR: Regular. There is no tachycardia. There is no gallop rub or murmur. ABDOMEN: Abdomen is soft, nontender. Patient has normal bowel sounds. There is no abdominal distention. SKIN: There is no rash. There is no diaphoresis. NEURO: The patient is awake, alert, and oriented. The patient is cooperative. The patient has normal speech MUSCULOSKELETAL: There is no evidence of acute injury. ED Medical Decision Making - Lab Data Result diagrams: 05/31/20 23:21 05/31/20 23:21 Laboratory Tests 05/31/20 05/31/20 23:21 23:21 WBC 10.2 RBC 5.25 H Hgb 16.4 H Hct 48.2 H MCV 92 MCH 31 MCHC 34 RDW 13.0 L Plt Count 309 Lymph % (Auto) 31.8 [place] % (Auto) 8.5 H Eos % (Auto) 1.9 Baso % (Auto) 1.1 Lymph # (Auto) 3.2 [place] # (Auto) 0.9 H Eos # (Auto) 0.2 Baso # (Auto) 0.1 Seg Neutrophils % 56.7 Seg Neutrophils # 5.8 Sodium 142 Potassium 3.6 Chloride 96.5 L Carbon Dioxide 27 Anion Gap 22 BUN 16 Creatinine 0.9 Estimated GFR > 60 BUN/Creatinine Ratio 18 Glucose 170 H Calcium 10.4 H Troponin T < 0.010 - EKG Data -: EKG Interpreted by Me EKG shows normal: sinus rhythm Rate: normal - EKG Data When compared to previous EKG there are: previous EKG unavailable Interpretation: nonspecific ST-T wave bernarda, other (Frequent PVCs) - Radiology Data Radiology results: report reviewed (Chest x-ray), image reviewed (Chest x-ray) interpreted by me: Chest x-ray-no focal infiltrates, no pneumothorax. AICD in place [facility] [address] [place] [address] XRay Report Signed Patient: KARL BRAVO MR#: [id number] : 1960 Acct:[id number] Age/Sex: 60 / M ADM Date: 05/31/20 Loc: ED Attending Dr: Ordering Physician: ED MD SIMRAN Date of Service: 05/31/20 Procedure(s): XR chest 1V ap Accession Number(s): [id number] cc: ED DOCMD Fluoro Time In Minutes: CHEST 1 VIEW INDICATION: Chest Pain COMPARISON: 10/08/2019 FINDINGS: Support devices: Unchanged. Heart: Normal and unchanged Lungs/Pleura: No acute pulmonary or pleural findings. IMPRESSION: 1. No acute disease and no interval change. Signer Name: Be Bird MD Signed: 05/31/2020 11:50 PM Workstation Name: [id number] Transcribed By: TM Dictated By: Be Bird MD Electronically Authenticated By: Be Bird MD Signed Date/Time: 05/31/20 2350 DD/ 2349 TD/TT: - Differential Diagnosis ACS, pericarditis, GERD Critical care attestation.: If time is entered above; I have spent that time in minutes in the direct care of this critically ill patient, excluding procedure time. ED Disposition Clinical Impression: Chest pain Disposition: -09 OP ADMIT IP TO THIS HOSP Is pt being admited?: Yes Does the pt Need Aspirin: Yes Condition: Fair Instructions: Chest Pain (ED) Referrals: PRIMARY CARE, [Primary Care Provider] - 3-5 Days Time of Disposition: 01:27 (Hospitalist paged (Dr Arzate))
[2020-06-01] MEDS ORDERED: MORPHINE 4 MG/1 ML INJ IV PRN (02:13)
[2020-06-01] MEDS ORDERED: ACETAMINOPHEN 325 MG TAB PO PRN (02:13)
[2020-06-01] MEDS ORDERED: MAGNESIUM HYDROXIDE (MOM) ORAL LIQD UDC PO PRN (02:13)
[2020-06-01] MEDS ORDERED: ONDANSETRON 4 MG/2 ML INJ IV PRN (02:13)
--- NOTE | 2020-06-01 02:29 | History and Physical Report ---
History of Present Illness Date of examination: 06/01/20 Date of admission: 06/01/20 01:28 Chief complaint: Chest Pain History of present illness: 60-year-old male with known history of hypertension, CHF, history of MN in the past with stent placement, history of CABG presented to the emergency room today complaining of chest pain. Chest pain is said to be substernal, constant but later became intermittent after taking some aspirin and sublingual nitroglycerin. He had associated shortness of breath, diaphoresis, nausea. He denies any vomiting no headache or dizziness, no abdominal pain. There is no known exacerbating factor. Work-up in the emergency room has not revealed any acute abnormality. Patient is being admitted for evaluation of his chest pain. Past History Past Medical History: CAD (H/O MN), heart failure, hypertension, hyperlipidemia Past Surgical History: appendectomy, CABG, hernia repair, PTCA, Other (Defibrillator/Pacemaker placement) Social history: smoking (Former Smoker) Family history: no significant family history Medications and Allergies Allergies Allergy/AdvReac Type Severity Reaction Status Date / Time captopril Allergy Unknown Verified 05/11/19 10:24 clopidogrel bisulfate Allergy Rash Verified 05/11/19 09:15 [From Plavix] Sulfa (Sulfonamide Allergy Anaphylaxis Verified 05/11/19 10:24 Antibiotics) amlodipine AdvReac Swelling Verified 05/11/19 10:24 cephalexin [From Keflex] AdvReac Hives Verified 05/11/19 10:24 nitroglycerin AdvReac Dizziness Verified 05/11/19 10:24 Home Medications Medication Instructions Recorded Confirmed Last Taken Type Aspirin 81 mg PO QDAY 11/01/16 06/01/20 05/11/19 History Simvastatin [Zocor TAB] 40 mg PO DAILY 11/01/16 06/01/20 07/29/17 History Sotalol HCl [Sotalol] 120 mg PO BID 11/01/16 06/01/20 07/29/17 History gemfibroziL [Lopid] 600 mg PO BID 11/01/16 06/01/20 07/29/17 History hydroCHLOROthiazide [HCTZ] 25 mg PO QDAY 11/01/16 06/01/20 07/29/17 History ISOSORBIDE MONOnitrate [Imdur ER] 30 mg PO DAILY 30 Days tablet 08/01/17 06/01/20 Unknown Rx Losartan [Cozaar] 25 mg PO QDAY 30 Days tablet 08/01/17 06/01/20 Unknown Rx Nitroglycerin [Nitrostat] 0.4 mg SL Q5M PRN tablet 08/01/17 06/01/20 Unknown Rx carvediloL [Coreg] 12.5 mg PO BID 30 Days tablet 08/01/17 06/01/20 Unknown Rx [place]-3S/Dha/Epa/Fish Oil [[place]-3 1,000 mg PO DAILY 05/11/19 06/01/20 Unknown History Fish Oil 1,000 mg Sfgl] Active Meds: Active Medications Acetaminophen (Tylenol) 650 mg PO Q4H PRN PRN Reason: Pain MILD(1-3)/Fever >100.5/GARCIA Aspirin (Ecotrin) 325 mg PO QDAY [facility] Magnesium Hydroxide (Milk Of Magnesia) 30 ml PO Q4H PRN PRN Reason: Constipation Morphine Sulfate (Morphine) 2 mg IV Q5MIN PRN PRN Reason: Chest Pain Ondansetron HCl (Zofran) 4 mg IV Q8H PRN PRN Reason: Nausea And Vomiting Sodium Chloride (Sodium Chloride Flush Syringe 10 Ml) 10 ml IV BID [facility] Sodium Chloride (Sodium Chloride Flush Syringe 10 Ml) 10 ml IV PRN PRN PRN Reason: LINE FLUSH Sodium Chloride (Sodium Chloride Flush Syringe 10 Ml) 10 ml IV PRN PRN PRN Reason: LINE FLUSH Review of Systems Constitutional: no fever, no chills Ears, nose, mouth and throat: no nasal congestion, no sore throat Cardiovascular: chest pain, no palpitations Respiratory: no cough, no shortness of breath Gastrointestinal: no abdominal pain, no nausea, no vomiting, no diarrhea Genitourinary Male: no dysuria, no hematuria, no nocturia Musculoskeletal: no neck pain, no low back pain Integumentary: no rash, no pruritis Neurological: no headaches, no confusion Psychiatric: no anxiety, no depression Exam - Constitutional Vitals: Temp Pulse Resp BP Pulse Ox 99.4 F 70 21 131/81 92 05/31/20 21:57 06/01/20 01:31 06/01/20 01:31 06/01/20 01:31 06/01/20 01:31 General appearance: Present: no acute distress, well-nourished - EENT Eyes: Present: PERRL, EOM intact. Absent: scleral icterus ENT: hearing intact, clear oral mucosa, dentition normal - Neck Neck: Present: supple, normal ROM - Respiratory Respiratory effort: normal Respiratory: bilateral: CTA - Cardiovascular Rhythm: regular Heart Sounds: Present: S1 & S2. Absent: gallop, systolic murmur, diastolic murmur, rub - Extremities Extremities: no ischemia, pulses intact, pulses symmetrical, No edema, Full ROM Peripheral Pulses: within normal limits - Abdominal General gastrointestinal: Present: soft, non-tender, non-distended, normal bowel sounds. Absent: mass - Integumentary Integumentary: Present: clear, warm, dry. Absent: rash - Musculoskeletal Musculoskeletal: strength equal bilaterally - Psychiatric Psychiatric: appropriate mood/affect, intact judgment & insight, memory intact, cooperative - Neurologic Neurologic: CNII-XII intact, no focal deficits, moves all extremities HEART Score - HEART Score History: Moderately suspicious EKG: Non-specific Age: 45-65 Risk factors: > 3 risk factors or hx of atherosclerotic disease Troponin: Troponin T < 0.010 ng/mL (0.00-0.029) 05/31/20 23:21 Troponin: < normal limit HEART Score: 5 Results - Labs CBC & Chem 7: 05/31/20 23:21 06/01/20 03:50 Labs: Abnormal lab results 05/31/20 05/31/20 Range/Units 23:21 23:21 RBC 5.25 H (3.65-5.03) M/mm3 Hgb 16.4 H (11.8-15.2) gm/dl Hct 48.2 H (35.5-45.6) % RDW 13.0 L (13.2-15.2) % [place] % (Auto) 8.5 H (0.0-7.3) % [place] # (Auto) 0.9 H (0.0-0.8) K/mm3 Chloride 96.5 L (98-107) mmol/L Glucose 170 H (75-100) mg/dL Calcium 10.4 H (8.4-10.2) mg/dL Assessment and Plan - Patient Problems (1) Chest pain Current Visit: Yes Status: Acute Plan to address problem: We will check serial cardiac enzymes, patient placed on aspirin, sublingual nitroglycerin and IV morphine as needed for chest pain. We will consult to cardiology for evaluation and recommendation (2) Coronary artery disease Current Visit: No Status: Acute Qualifiers: Coronary Disease-Associated Artery/Lesion type: [place] artery [place] vs. transplanted heart: [place] heart Associated angina: angina presence unspecified Qualified Code(s): I25.10 - Atherosclerotic heart disease of [place] coronary artery without angina pectoris Plan to address problem: Patient has had stent placement and CABG done in the past. We will resume routine home medications once reconciled. (3) DVT prophylaxis Current Visit: Yes Status: Acute Plan to address problem: Patient placed on subcutaneous heparin. (4) Full code status Current Visit: Yes Status: Acute
[2020-06-01 04:45] LABS: BUN/Creatinine Ratio 19; Blood Urea Nitrogen 17 mg/dL (9-20); Calcium 9.9 mg/dL (8.4-10.2); Hemolysis Index 6
[2020-06-01] MEDS ORDERED: MORPHINE 2 MG/1 ML INJ ONE (06:21)
[2020-06-01] MEDS ORDERED: HEPARIN 5,000 UNIT/1 ML VIAL ONE (06:22)
[2020-06-01] MEDS: HEPARIN 5,000 UNIT/1 ML VIAL SUB-Q SCH ×3 (06:23→22:55)
[2020-06-01] MEDS: MORPHINE 2 MG/1 ML INJ IV PRN (06:24)
[2020-06-01] MEDS ORDERED: REGADENOSON 0.4 MG/5 ML INJ IV ONE ×2 (08:30→08:40)
--- NOTE | 2020-06-01 11:03 | Consultation ---
<LIBBY NASH - Last Filed: 06/01/20 12:19> History of Present Illness Consult date: 06/01/20 Consult reason: chest pain History of present illness: This is a 60-year old male who presented to this hospital with chest pain. Patient is known to have recurrent episodes of chest pain and chronic stable angina from underlying CAD. He has coronary artery disease and had a single- vessel coronary bypass with robotic MEREDITH to LAD in 2017. 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 He has ischemic cardiomyopathy and has a cardiac defibrillator in situ. A year ago a stress test done showed a fixed inferior wall defect with no ischemia. He also has a history of paroxysmal atrial fibrillation and is on sotalol for suppression. Patient was previously considered a poor candidate for anticoagulation due to prior GI bleed. Cycled troponin measurements are negative. ECG is sinus rhythm with occasional PVCs and old anterior MN. He was admitted by the hospitalist team and ordered to undergo a Lexiscan thallium stress test today. Cardiology consultation has been requested. Past History Past Medical History: CAD (H/O MN), heart failure, hypertension, hyperlipidemia Past Surgical History: appendectomy, CABG, hernia repair, PTCA, Other (Defibrillator placement) Social history: smoking (Former Smoker) Family history: no significant family history Medications and Allergies Allergies Allergy/AdvReac Type Severity Reaction Status Date / Time captopril Allergy Unknown Verified 05/11/19 10:24 clopidogrel bisulfate Allergy Rash Verified 05/11/19 09:15 [From Plavix] Sulfa (Sulfonamide Allergy Anaphylaxis Verified 05/11/19 10:24 Antibiotics) amlodipine AdvReac Swelling Verified 05/11/19 10:24 cephalexin [From Keflex] AdvReac Hives Verified 05/11/19 10:24 nitroglycerin AdvReac Dizziness Verified 05/11/19 10:24 Home Medications Medication Instructions Recorded Confirmed Last Taken Type Aspirin 81 mg PO QDAY 11/01/16 06/01/20 05/11/19 History Simvastatin [Zocor TAB] 40 mg PO DAILY 11/01/16 06/01/20 07/29/17 History Sotalol HCl [Sotalol] 120 mg PO BID 11/01/16 06/01/20 07/29/17 History gemfibroziL [Lopid] 600 mg PO BID 11/01/16 06/01/20 07/29/17 History hydroCHLOROthiazide [HCTZ] 25 mg PO QDAY 11/01/16 06/01/20 07/29/17 History ISOSORBIDE MONOnitrate [Imdur ER] 30 mg PO DAILY 30 Days tablet 08/01/1706/01 Unknown Rx Losartan [Cozaar] 25 mg PO QDAY 30 Days tablet 08/01/17 06/01/20 Unknown Rx Nitroglycerin [Nitrostat] 0.4 mg SL Q5M PRN tablet 08/01/17 06/01/20 Unknown Rx carvediloL [Coreg] 12.5 mg PO BID 30 Days tablet 08/01/17 06/01/20 Unknown Rx [place]-3S/Dha/Epa/Fish Oil [[place]-3 1,000 mg PO DAILY 05/11/19 06/01/20 Unknown History Fish Oil 1,000 mg Sfgl] Active Meds: Active Medications Acetaminophen (Tylenol) 650 mg PO Q4H PRN PRN Reason: Pain MILD(1-3)/Fever >100.5/GARCIA Aspirin (Ecotrin) 325 mg PO QDAY [facility] Carvedilol (Coreg) 12.5 mg PO BID@0800,1700 [facility] Fish Oil (Fish Oil) 1,000 mg PO DAILY [facility] Gemfibrozil (Lopid) 600 mg PO BID [facility] Heparin Sodium (Porcine) (Heparin) 5,000 unit SUB-Q Q8HR [facility] Last Admin: 06/01/20 06:23 Dose: 5,000 unit Documented by: Hydrochlorothiazide (Hctz) 25 mg PO QDAY [facility] Isosorbide Mononitrate (Imdur) 30 mg PO DAILY [facility] Losartan Potassium (Cozaar) 25 mg PO QDAY [facility] Magnesium Hydroxide (Milk Of Magnesia) 30 ml PO Q4H PRN PRN Reason: Constipation Morphine Sulfate (Morphine) 2 mg IV Q5MIN PRN PRN Reason: Chest Pain Last Admin: 06/01/20 06:24 Dose: 2 mg Documented by: Ondansetron HCl (Zofran) 4 mg IV Q8H PRN PRN Reason: Nausea And Vomiting Pravastatin Sodium (Pravachol) 80 mg PO QHS [facility] Sodium Chloride (Sodium Chloride Flush Syringe 10 Ml) 10 ml IV BID [facility] Sodium Chloride (Sodium Chloride Flush Syringe 10 Ml) 10 ml IV PRN PRN PRN Reason: LINE FLUSH Sotalol HCl (Betapace) 120 mg PO BID [facility] Physical Examination Vital Signs Temp Pulse Resp BP Pulse Ox 99.4 F 88 17 115/75 94 05/31/20 21:57 05/31/20 21:57 05/31/20 21:57 05/31/20 21:57 05/31/20 21:57 General appearance: no acute distress HEENT: Positive: PERRL Neck: Positive: trachea midline Cardiac: Positive: Reg Rate and Rhythm Results 05/31/20 23:21 06/01/20 03:50 CBC 05/31/20 Range/Units 23:21 WBC 10.2 (4.5-11.0) K/mm3 RBC 5.25 H (3.65-5.03) M/mm3 Hgb 16.4 H (11.8-15.2) gm/dl Hct 48.2 H (35.5-45.6) % Plt Count 309 (140-440) K/mm3 Lymph # (Auto) 3.2 (1.2-5.4) K/mm3 [place] # (Auto) 0.9 H (0.0-0.8) K/mm3 Eos # (Auto) 0.2 (0.0-0.4) K/mm3 Baso # (Auto) 0.1 (0.0-0.1) K/mm3 Comprehensive Metabolic Panel 05/31/20 06/01/20 Range/Units 23:21 03:50 Sodium 142 139 (137-145) mmol/L Potassium 3.6 4.1 (3.6-5.0) mmol/L Chloride 96.5 L 97.4 L (98-107) mmol/L Carbon Dioxide 27 27 (22-30) mmol/L BUN 16 17 (9-20) mg/dL Creatinine 0.9 0.9 (0.8-1.3) mg/dL Glucose 170 H 144 H (75-100) mg/dL Calcium 10.4 H 9.9 (8.4-10.2) mg/dL Assessment and Plan Chronic stable angina Hx of CAD with 1 vessel CABG, robotic MEREDITH to LAD, in 2017. plavix allergy Hx of paroxysmal atrial fibrillation on sotalol for suppression. previously considered a poor candidate for anticoagulation due to prior GI bleed Hx of ischemic cardiomyopathy LVEF 30-35% by echo this presentation Presence of AICD Hypertension Recommendations: For Lexiscan thallium stress test today. Results are pending. Continue guideline directed medical therapy for coronary artery disease, ischemic cardiomyopathy and paroxysmal atrial fibrillation. Will increase Imdur to 60mg for chronic stable angina. <RACHELLE ROBISON - Last Filed: 06/02/20 21:03> History of Present Illness History of present illness: I SAW THIS PT & AGREE WITH THE Dx & Tx PLAN Medications and Allergies Active Meds: Active Medications Acetaminophen (Tylenol) 650 mg PO Q4H PRN PRN Reason: Pain MILD(1-3)/Fever >100.5/GARCIA Aspirin (Baby Aspirin) 81 mg PO QDAY [facility] Fish Oil (Fish Oil) 1,000 mg PO DAILY [facility] Last Admin: 06/02/20 18:25 Dose: 1,000 mg Documented by: Gemfibrozil (Lopid) 600 mg PO BID [facility] Last Admin: 06/02/20 18:25 Dose: 600 mg Documented by: Heparin Sodium (Porcine) (Heparin) 5,000 unit SUB-Q Q8HR [facility] Last Admin: 06/02/20 14:29 Dose: Not Given Documented by: Hydrochlorothiazide (Hctz) 25 mg PO QDAY [facility] Last Admin: 06/02/20 18:25 Dose: 25 mg Documented by: Hydromorphone HCl (Dilaudid) 1 mg IV Q6H PRN PRN Reason: Pain , Severe (7-10) Last Admin: 06/02/20 17:10 Dose: 1 mg Documented by: Sodium Chloride (Nacl 0.9% 500 Ml) 500 mls @ 50 mls/hr IV DIRECT [facility] Last Admin: 06/02/20 09:00 Dose: 50 mls/hr Documented by: Isosorbide Mononitrate (Imdur) 60 mg PO QDAY [facility] Last Admin: 06/02/20 18:25 Dose: 60 mg Documented by: Losartan Potassium (Cozaar) 25 mg PO QDAY [facility] Last Admin: 06/02/20 18:26 Dose: 25 mg Documented by: Magnesium Hydroxide (Milk Of Magnesia) 30 ml PO Q4H PRN PRN Reason: Constipation Morphine Sulfate (Morphine) 2 mg IV Q5MIN PRN PRN Reason: Chest Pain Last Admin: 06/02/20 16:02 Dose: 2 mg Documented by: Ondansetron HCl (Zofran) 4 mg IV Q8H PRN PRN Reason: Nausea And Vomiting Pravastatin Sodium (Pravachol) 80 mg PO QHS [facility] Last Admin: 06/01/20 22:55 Dose: 80 mg Documented by: Sodium Chloride (Sodium Chloride Flush Syringe 10 Ml) 10 ml IV BID [facility] Last Admin: 06/02/20 18:27 Dose: 10 ml Documented by: Sodium Chloride (Sodium Chloride Flush Syringe 10 Ml) 10 ml IV PRN PRN PRN Reason: LINE FLUSH Sotalol HCl (Betapace) 120 mg PO BID [facility] Last Admin: 06/02/20 18:25 Dose: 120 mg Documented by: Ticagrelor (Brilinta) 90 mg PO BID [facility] Tramadol HCl (Ultram) 50 mg PO Q6H PRN PRN Reason: Pain, Moderate (4-6) Last Admin: 06/02/20 14:57 Dose: 50 mg Documented by: Physical Examination Vital Signs Temp Pulse Resp BP Pulse Ox 99.4 F 88 17 115/75 94 05/31/20 21:57 05/31/20 21:57 05/31/20 21:57 05/31/20 21:57 05/31/20 21:57 Results 06/02/20 06:24 06/02/20 06:24 Coagulation 06/02/20 Range/Units 06:24 PT 13.8 (12.2-14.9) Sec. INR 1.04 (0.87-1.13) CBC 06/02/20 Range/Units 06:24 WBC 7.6 (4.5-11.0) K/mm3 RBC 4.91 (3.65-5.03) M/mm3 Hgb 16.1 H (11.8-15.2) gm/dl Hct 43.9 (35.5-45.6) % Plt Count 265 (140-440) K/mm3 Lymph # (Auto) 2.4 (1.2-5.4) K/mm3 Delta # (Auto) 0.6 (0.0-0.8) K/mm3 Eos # (Auto) 0.2 (0.0-0.4) K/mm3 Baso # (Auto) 0.2 H (0.0-0.1) K/mm3 Comprehensive Metabolic Panel 06/02/20 Range/Units 06:24 Sodium 136 L (137-145) mmol/L Potassium 3.8 (3.6-5.0) mmol/L Chloride 98.2 (98-107) mmol/L Carbon Dioxide 25 (22-30) mmol/L BUN 13 (9-20) mg/dL Creatinine 0.8 (0.8-1.3) mg/dL Glucose 155 H (75-100) mg/dL Calcium 9.7 (8.4-10.2) mg/dL
[2020-06-01] MEDS: LOSARTAN 25 MG TAB PO SCH (12:10)
[2020-06-01] MEDS: carvediloL 12.5 MG TAB PO SCH ×2 (12:10→16:29)
[2020-06-01] MEDS: hydroCHLOROthiazide 25 MG TAB PO SCH (12:10)
[2020-06-01] MEDS: OMEGA-3 FATTY ACIDS/FISH OIL 1 GRAM CAP PO SCH (12:10)
[2020-06-01] MEDS: GEMFIBROZIL 600 MG TAB PO SCH ×2 (12:11→22:55)
[2020-06-01] MEDS: PRAVASTATIN 80 MG TAB PO SCH (22:55)
[2020-06-02] MEDS: HEPARIN 5,000 UNIT/1 ML VIAL SUB-Q SCH ×3 (06:49→22:48)
[2020-06-02 06:58] LABS: Basophils # (Auto) 0.2 K/mm3 (0.0-0.1); Basophils % (Auto) 2.8 % (0.0-1.8); Eosinophils # (Auto) 0.2 K/mm3 (0.0-0.4); Eosinophils % (Auto) 2.3 % (0.0-4.3); Lymphocytes # (Auto) 2.4 K/mm3 (1.2-5.4); Lymphocytes % (Auto) 31.9 % (13.4-35.0); Mean Corpuscular HGB Conc 37 % (32-34); Mean Corpuscular Volume 89 fl (84-94); Monocytes # (Auto) 0.6 K/mm3 (0.0-0.8); Monocytes % (Auto) 8.5 % (0.0-7.3); Platelet Count 265 K/mm3 (140-440); Red Blood Count 4.91 M/mm3 (3.65-5.03)
[2020-06-02 07:10] LABS: INR 1.04 (0.87-1.13)
[2020-06-02 07:13] LABS: Hematocrit 43.9 % (35.5-45.6); Hemoglobin 16.1 gm/dl (11.8-15.2)
[2020-06-02 07:15] LABS: BUN/Creatinine Ratio 16; Blood Urea Nitrogen 13 mg/dL (9-20); Calcium 9.7 mg/dL (8.4-10.2); Hemolysis Index 10
[2020-06-02] MEDS ORDERED: SODIUM CHLORIDE 0.9% 500 ML 500 ML ONE (08:06)
[2020-06-02] MEDS ORDERED: ASPIRIN EC 81 MG TAB PO ONE (08:11)
[2020-06-02] MEDS ORDERED: ASPIRIN EC 325 MG TAB PO ONE (08:13)
[2020-06-02] MEDS ORDERED: SODIUM CHLORIDE 0.9% 500 ML 500 ML IV SCH (09:00)
[2020-06-02] MEDS ORDERED: HEPARIN 10,000 UNITS/10 ML VIAL ONE ×2 (09:20→12:37)
[2020-06-02] MEDS ORDERED: HEPARIN/NS 5000 UNIT/500ML 1,000 ML IR ONE ×2 (09:20→12:37)
[2020-06-02] MEDS ORDERED: VERAPAMIL 5 MG/2 ML INJ ONE (09:21)
[2020-06-02] MEDS ORDERED: NITROGLYCERIN SYRINGE 0 ML ONE (09:21)
[2020-06-02] MEDS ORDERED: ASPIRIN EC 325 MG TAB PO SCH (10:00)
[2020-06-02] MEDS: fentaNYL 100 MCG/2 ML INJ ONE ×5 (10:02→13:25)
[2020-06-02] MEDS: MIDAZOLAM 2 MG/2 ML INJ ONE ×4 (10:02→13:25)
[2020-06-02] MEDS: LIDOCAINE (2%) 20 MG/1 ML VIAL 20 ML MDV INFILTRATI ONE ×2 (10:03→10:08)
[2020-06-02] MEDS ORDERED: ATROPINE 0.1% (1 MG/10 ML) CARDIAC SYRINGE ONE (10:12)
[2020-06-02] MEDS ORDERED: LIDOCAINE PF 100 MG/5 ML (CARDIAC SYRINGE) IV ONE (10:12)
[2020-06-02] MEDS ORDERED: PHENYLEPHRINE/NS 1,000 MCG/10 ML SYRINGE (OR USE) IV ONE (10:12)
[2020-06-02] MEDS ORDERED: EPINEPHrine 1 MG/10 ML SYRINGE ONE (10:12)
[2020-06-02] MEDS ORDERED: HEPARIN/NS 5000 UNIT/500ML 500 ML IR ONE (10:47)
--- NOTE | 2020-06-02 11:50 | Cardiac Catherization Report ---
HISTORY: The patient is a 60-year-old gentleman known to Dr. Baltazar with an extensive history of coronary disease, who presented with chest pain and the stress test revealed inferolateral ischemia. He was diagnosed with unstable angina and coronary angiography was recommended. PROCEDURES: Left heart catheterization, ventriculography and coronary angiography via the right femoral artery using 5-[place] Melanie catheters and a pigtail catheter. The MEREDITH was also studied. The MEREDITH catheter was used. Multiple catheters were used in an attempt to cannulate the right coronary artery without success. The procedure was prolonged as a result. COMPLICATIONS: None. PREPROCEDURE DIAGNOSIS: Unstable angina. POSTPROCEDURE DIAGNOSIS: Unstable angina with multivessel coronary artery disease and moderate left ventricular dysfunction. SEDATION: Intravenous Versed and fentanyl. TISSUE SAMPLES: None. COMPLICATIONS: None. HEMODYNAMICS: Central aortic pressure 137/83, left ventricular pressure 130/14, end-diastolic pressure 25. ANGIOGRAPHIC RESULTS: 1. Left ventricle: The ventriculogram reveals left ventricular enlargement with global hypokinesia. The anterior wall and apex are mildly hypokinetic. The inferior wall is moderately hypokinetic. An estimation of the ejection fraction is 30-35%. 2. Right coronary artery: Unable to cannulate. Multiple catheter shapes were used in attempt to cannulate this vessel, which appears to have an unusual takeoff. 3. Left coronary artery: This vessel is diffusely irregular with evidence of calcification and evidence of previous stents. The left main contains mild atherosclerotic changes. The circumflex is diffusely diseased with a fairly proximal discrete 90% stenosis, followed shortly thereafter by a 50% lesion, followed shortly thereafter by a 70% stenosis. The LAD is diffusely narrowed vessel and then in its midportion, it can be seen to be narrowed by approximately 80%, a long area of stenosis. This vessel is small in caliber and there is competitive flow in the distal LAD from the MEREDITH. The diagonal branch is a large caliber vessel with multiple 40% lesions. 4. MEREDITH: This vessel is of a small caliber and inserts into the distal LAD. There is good antegrade and retrograde blood flow. There are no significant lesions. SEDATION TIME: Began at 10:02 a.m. SEDATION: Ended and the procedure ended at 10:48 a.m. The sedation time was 46 minutes. FINAL IMPRESSION: Unstable angina with a 90% stenosis in the circumflex to explain just this patient's unstable angina and abnormal stress test. The right coronary artery was not cannulated. The LAD is diffusely diseased with a patent MEREDITH graft to the distal LAD. There is left ventricular enlargement with moderate left ventricular dysfunction and segmental wall motion abnormalities consistent with coronary artery disease. The ejection fraction is approximately 30-35%. Therefore, this patient has an ischemic cardiomyopathy. PLAN: Recommend PCI of the circumflex. Aggressive medical therapy and CAD risk factor modification. JOB# [id number] ADAM/NTS
[2020-06-02] MEDS ORDERED: LIDOCAINE (2%) 20 MG/1 ML VIAL 20 ML MDV INFILTRATI ONE ×2 (12:38)
[2020-06-02] MEDS ORDERED: NITROGLYCERIN SYRINGE 3 ML ONE (12:38)
[2020-06-02] MEDS ORDERED: SODIUM CHLORIDE 0.9% 50 ML ONE ×2 (12:51→13:32)
[2020-06-02] MEDS ORDERED: WATER FOR INJ Sterile (PF) 10 ML ONE (12:52)
[2020-06-02] MEDS: BIVALIRUDIN 250 MG INJ IV ONE ×2 (12:56→12:57)
[2020-06-02] MEDS ORDERED: BIVALIRUDIN 250 MG INJ IV ONE (13:42)
--- NOTE | 2020-06-02 13:49 | Progress Note ---
<LIBBY NASH - Last Filed: 06/02/20 13:48> Assessment and Plan Chronic angina Hx of CAD with 1 vessel CABG, robotic MEREDITH to LAD, in 2017. plavix allergy Hx of paroxysmal atrial fibrillation on sotalol for suppression. previously considered a poor candidate for anticoagulation due to prior GI bleed Hx of ischemic cardiomyopathy LVEF 30-35% by echo this presentation Presence of AICD Hypertension Recommendations: Will proceed with a cardiac cath today for abnormal MPI and unstable angina. Continue guideline directed medical therapy for coronary artery disease, ischemic cardiomyopathy and paroxysmal atrial fibrillation. Subjective Date of service: 06/02/20 Interval history: For cardiac cath today. Objective Vital Signs Temp Pulse Pulse Resp BP Pulse Ox 06/02/20 12:15 61 12 124/85 96 06/02/20 12:00 63 16 130/82 96 06/02/20 11:45 63 14 123/73 92 06/02/20 11:30 98.3 F 64 16 140/84 99 06/02/20 06:00 66 06/02/20 04:08 99.1 F 66 16 127/73 92 06/01/20 23:19 99.1 F 73 16 125/72 94 06/01/20 22:55 72 119/73 06/01/20 22:00 66 66 18 98 06/01/20 19:22 97.8 F 58 L 18 119/73 93 06/01/20 16:29 103/69 06/01/20 16:02 81 06/01/20 15:30 98.1 F 71 20 103/69 92 06/01/20 13:58 18 96 - Physical Examination HEENT: Positive: PERRL Neck: Positive: trachea midline - Labs and Meds Coagulation 06/02/20 Range/Units 06:24 PT 13.8 (12.2-14.9) Sec. INR 1.04 (0.87-1.13) CBC 06/02/20 Range/Units 06:24 WBC 7.6 (4.5-11.0) K/mm3 RBC 4.91 (3.65-5.03) M/mm3 Hgb 16.1 H (11.8-15.2) gm/dl Hct 43.9 (35.5-45.6) % Plt Count 265 (140-440) K/mm3 Lymph # (Auto) 2.4 (1.2-5.4) K/mm3 [place] # (Auto) 0.6 (0.0-0.8) K/mm3 Eos # (Auto) 0.2 (0.0-0.4) K/mm3 Baso # (Auto) 0.2 H (0.0-0.1) K/mm3 Comprehensive Metabolic Panel 06/02/20 Range/Units 06:24 Sodium 136 L (137-145) mmol/L Potassium 3.8 (3.6-5.0) mmol/L Chloride 98.2 (98-107) mmol/L Carbon Dioxide 25 (22-30) mmol/L BUN 13 (9-20) mg/dL Creatinine 0.8 (0.8-1.3) mg/dL Glucose 155 H (75-100) mg/dL Calcium 9.7 (8.4-10.2) mg/dL <RACHELLE ROBISON Last Filed: 06/02/20 20:57> Subjective Interval history: I SAW THIS PT & AGREE WITH THE Dx & Tx PLAN Objective Vital Signs Temp Pulse Pulse Resp BP Pulse Ox 06/02/20 18:30 78 18 98 06/02/20 18:26 80 148/91 06/02/20 18:25 80 148/91 06/02/20 17:42 73 11 L 138/88 97 06/02/20 17:40 68 18 145/83 97 06/02/20 17:35 66 13 146/94 98 06/02/20 17:30 67 12 137/86 99 06/02/20 17:26 73 12 147/85 98 06/02/20 17:10 13 06/02/20 17:00 63 14 156/90 98 06/02/20 16:32 16 06/02/20 16:30 63 16 171/94 96 06/02/20 16:02 12 06/02/20 16:00 65 15 132/82 98 06/02/20 15:57 12 06/02/20 15:30 61 13 137/76 96 06/02/20 15:15 62 12 148/85 97 06/02/20 15:00 58 L 12 138/89 96 06/02/20 14:57 18 06/02/20 14:45 67 18 136/86 97 06/02/20 14:42 98.6 F 64 17 140/89 99 06/02/20 12:15 61 12 124/85 96 06/02/20 12:00 63 16 130/82 96 06/02/20 11:45 63 14 123/73 92 06/02/20 11:30 98.3 F 64 16 140/84 99 06/02/20 07:15 61 06/02/20 06:00 66 06/02/20 04:08 99.1 F 66 16 127/73 92 06/01/20 23:19 99.1 F 73 16 125/72 94 06/01/20 22:55 72 119/73 06/01/20 22:00 66 66 18 98 - Labs and Meds Coagulation 06/02/20 Range/Units 06:24 PT 13.8 (12.2-14.9) Sec. INR 1.04 (0.87-1.13) CBC 06/02/20 Range/Units 06:24 WBC 7.6 (4.5-11.0) K/mm3 RBC 4.91 (3.65-5.03) M/mm3 Hgb 16.1 H (11.8-15.2) gm/dl Hct 43.9 (35.5-45.6) % Plt Count 265 (140-440) K/mm3 Lymph # (Auto) 2.4 (1.2-5.4) K/mm3 [place] # (Auto) 0.6 (0.0-0.8) K/mm3 Eos # (Auto) 0.2 (0.0-0.4) K/mm3 Baso # (Auto) 0.2 H (0.0-0.1) K/mm3 Comprehensive Metabolic Panel 06/02/20 Range/Units 06:24 Sodium 136 L (137-145) mmol/L Potassium 3.8 (3.6-5.0) mmol/L Chloride 98.2 (98-107) mmol/L Carbon Dioxide 25 (22-30) mmol/L BUN 13 (9-20) mg/dL Creatinine 0.8 (0.8-1.3) mg/dL Glucose 155 H (75-100) mg/dL Calcium 9.7 (8.4-10.2) mg/dL
[2020-06-02] MEDS ORDERED: fentaNYL 100 MCG/2 ML INJ ONE (13:55)
[2020-06-02] MEDS ORDERED: MIDAZOLAM 2 MG/2 ML INJ ONE (13:55)
[2020-06-02] MEDS ORDERED: TICAGRELOR 90 MG TAB ONE (14:09)
[2020-06-02] MEDS ORDERED: ALUM-MAG HYDROXIDE-SIMETHICONE 200-200-20MG/5ML ORAL LIQD 30 ML ONE (14:13)
--- NOTE | 2020-06-02 14:32 | Progress Note ---
Assessment and Plan Assessment and plan: (1) Chest pain Current Visit: Yes Status: Acute Plan to address problem: Patient had abnormal stress test and cardiac cath was done this morning. Per my discussion with the nurse practitioner patient had PCI this morning Patient is allergic to Plavix. Patient is currently on aspirin and Brilinta Regiment as per cardiology (2) Coronary artery disease Current Visit: No Status: Acute Qualifiers: Coronary Disease-Associated Artery/Lesion type: [place] artery [place] vs. transplanted heart: [place] heart Associated angina: angina presence unspecified Qualified Code(s): I25.10 - Atherosclerotic heart disease of [place] coronary artery without angina pectoris Plan to address problem: Patient has had stent placement and CABG done in the past. We will resume routine home medications once reconciled. (3) DVT prophylaxis Current Visit: Yes Status: Acute Plan to address problem: Patient placed on subcutaneous heparin. (4) Full code status Current Visit: Yes Status: Acute Disposition; patient will be discharged once cleared by cardiology. Likely tomorrow. History Interval history: Patient was seen and evaluated Patient has occasional chest pain Hospitalist Physical - Physical exam Narrative exam: Not in cardiopulmonary distress. The patient is obese Vital signs as documented. Head exam is unremarkable. No scleral icterus . Neck is without jugular venous distension, thyromegaly, or carotid bruits. Lungs are clear to auscultation. Cardiac exam reveals regular rate and Rhythm. Abdominal exam reveals normal bowel sounds, nontender, no organomegaly. Extremities are nonedematous and both femoral and pedal pulses are normal. OBJECTS CONSERVATOR: Alert and oriented 3. No focal weakness. - Constitutional Vitals: Temp Pulse Resp BP Pulse Ox 98.3 F 61 12 124/85 96 06/02/20 11:30 06/02/20 12:15 06/02/20 12:15 06/02/20 12:15 06/02/20 12:15 General appearance: Present: no acute distress HEART Score - HEART Score EKG: Non-specific Age: 45-65 Risk factors: > 3 risk factors or hx of atherosclerotic disease Troponin: Troponin T < 0.010 ng/mL (0.00-0.029) 06/01/20 14:00 Troponin: < normal limit Results - Labs CBC & Chem 7: 06/02/20 06:24 06/02/20 06:24 Labs: Laboratory Last Values WBC 7.6 K/mm3 (4.5-11.0) 06/02/20 06:24 RBC 4.91 M/mm3 (3.65-5.03) 06/02/20 06:24 Hgb 16.1 gm/dl (11.8-15.2) H 06/02/20 06:24 Hct 43.9 % (35.5-45.6) 06/02/20 06:24 MCV 89 fl (84-94) 06/02/20 06:24 MCH 33 pg (28-32) H 06/02/20 06:24 MCHC 37 % (32-34) H 06/02/20 06:24 RDW 13.0 % (13.2-15.2) L 06/02/20 06:24 Plt Count 265 K/mm3 (140-440) 06/02/20 06:24 Lymph % (Auto) 31.9 % (13.4-35.0) 06/02/20 06:24 [place] % (Auto) 8.5 % (0.0-7.3) H 06/02/20 06:24 Eos % (Auto) 2.3 % (0.0-4.3) 06/02/20 06:24 Baso % (Auto) 2.8 % (0.0-1.8) H 06/02/20 06:24 Lymph # (Auto) 2.4 K/mm3 (1.2-5.4) 06/02/20 06:24 [place] # (Auto) 0.6 K/mm3 (0.0-0.8) 06/02/20 06:24 Eos # (Auto) 0.2 K/mm3 (0.0-0.4) 06/02/20 06:24 Baso # (Auto) 0.2 K/mm3 (0.0-0.1) H 06/02/20 06:24 Seg Neutrophils % 54.5 % (40.0-70.0) 06/02/20 06:24 Seg Neutrophils # 4.1 K/mm3 (1.8-7.7) 06/02/20 06:24 PT 13.8 Sec. (12.2-14.9) 06/02/20 06:24 INR 1.04 (0.87-1.13) 06/02/20 06:24 Sodium 136 mmol/L (137-145) L 06/02/20 06:24 Potassium 3.8 mmol/L (3.6-5.0) 06/02/20 06:24 Chloride 98.2 mmol/L (98-107) 06/02/20 06:24 Carbon Dioxide 25 mmol/L (22-30) 06/02/20 06:24 Anion Gap 17 mmol/L 06/02/20 06:24 BUN 13 mg/dL (9-20) 06/02/20 06:24 Creatinine 0.8 mg/dL (0.8-1.3) 06/02/20 06:24 Estimated GFR > 60 ml/min 06/02/20 06:24 BUN/Creatinine Ratio 16 % 06/02/20 06:24 Glucose 155 mg/dL (75-100) H 06/02/20 06:24 POC Glucose 124 (70-105) H 06/02/20 06:22 Calcium 9.7 mg/dL (8.4-10.2) 06/02/20 06:24 Troponin T < 0.010 ng/mL (0.00-0.029) 06/01/20 14:00 - Diagnostic Impressions Diagnostic Impressions: Echocardiogram 06/01/20 02:20 Transthoracic Echocardiogram Indication: Chest pain BP: 146/82 HR: 66 Conclusions *mMILD MEME *MOD. LV DYSFUNCTION *EF 30-35% *MILS AI *DEVICE LEAD IN RA RV *BORDERLINE LVH *PROBABLY GRADE I DIASTOLIC DYSFUNCTION Findings Left Ventricle: The left ventricular chamber size is normal. Global left ventricular systolic function is moderately decreased. The estimated ejection fraction is 30-35%. Abnormal left ventricular diastolic filling is observed, consistent with impaired relaxation. Left Atrium: The left atrium is mildly dilated. Right Ventricle: The right ventricular cavity size is normal. The right ventricular global systolic function is mildly reduced. A pacemaker wire is visualized in the right ventricle. Right Atrium: The right atrium is mildly dilated. A pacemaker wire is visualized in the right atrium. Aortic Valve: Mild aortic leaflet calcification is visualized. There is mild aortic regurgitation. Mitral Valve: Mild mitral leaflet calcification is visualized. There is trace of mitral regurgitation. Tricuspid Valve: The tricuspid valve leaflets are normal. There is trace tricuspid regurgitation. The right ventricular systolic pressure is calculated at 27 mmHg. Pulmonic Valve: The pulmonic valve appears normal. Pericardium: There is no pericardial effusion. Aorta: The aorta appears normal. Venous: The inferior vena cava appears normal in size. There is less than 50% respiratory change in the inferior vena cava dimension. Contrast: Intravenous contrast was used to enhance endocardial border definition. Measurements Chambers 2D Name Value Normal Range IVSd (2D) 1.05 cm (0.6 - 1.1) LVPWd (2D) 0.94 cm (0.6 - 1.1) LVIDd (2D) 5.24 cm (3.7 - 5.6) LVIDs (2D) 3.96 cm (2 - 3.8) LV FS (2D) 24.57 % - Ao root diameter (2D) 2.89 cm (2 - 3.7) Volumes/Mass Name Value Normal Range LA ESV SP 4CH (A/L) 44.1 ml - LA ESV SP 2CH (A/L) 33.81 ml - LA ESV BP (A/L) 40.7 ml - LA ESV BP (A/L) index 18.09 ml/m2 - LA ESV SP 4CH (MOD) 41.45 ml - LA ESV SP 2CH (MOD) 32.2 ml - LA ESV BP (MOD) 38.43 ml - LA ESV BP (MOD) index 17.08 ml/m2 - Diastolic/Systolic Function Name Value Normal Range MV E-wave Vmax 0.86 m/sec - MV deceleration time 234.31 msec - MV A-wave Vmax 0.55 m/sec - MV E:A ratio 1.56 ratio - Aortic Valve Name Value Normal Range AV Vmax 1.55 m/sec - AV VTI 32.77 cm - AV peak gradient 9.61 mmHg - AV mean gradient 5.47 mmHg - LVOT diameter 2.01 cm - LVOT Vmax 0.94 m/sec - LVOT VTI 19.14 cm - LVOT peak gradient 3.56 mmHg - LVOT mean gradient 2 mmHg - SV LVOT 60.87 ml - JC (continuity Vmax) 1.93 cm2 - JC (continuity VTI) 1.86 cm2 - AR PHT 1037.16 msec - AR peak gradient 70.25 mmHg - Tricuspid Valve Name Value Normal Range TR Vmax 2.18 m/sec - TR peak gradient 19 mmHg - RAP 8 mmHg - RVSP 27 mmHg - IVC diameter 2.07 cm (1.2 - 2.3) Pulmonic Valve/Qp:Qs Name Value Normal Range PV Vmax 0.89 m/sec - PV peak gradient 3.2 mmHg - PV acceleration time 133.21 msec - Guillen/IV: Voiding Method Toilet IV Catheter Type [Right Wrist] INT / Saline Lock Active Medications - Current Medications Current Medications: Generic Name Dose Route Start Last Admin Trade Name Freq PRN Reason Stop Dose Admin Acetaminophen 650 mg 06/01/20 02:13 Tylenol PO Q4H PRN Pain MILD(1-3)/Fever >100.5/GARCIA Aspirin 81 mg 06/03/20 10:00 Baby Aspirin PO QDAY JUDIT Fish Oil 1,000 mg 06/01/20 10:00 06/01/20 12:10 Fish Oil PO 1,000 mg DAILY JUDIT Administration Gemfibrozil 600 mg 06/01/20 10:00 06/01/20 22:55 Lopid PO 600 mg BID JUDIT Administration Heparin Sodium (Porcine) 5,000 unit 06/01/20 06:00 06/02/20 06:49 Heparin SUB-Q 5,000 unit Q8HR JUDIT Administration Hydrochlorothiazide 25 mg 06/01/20 10:00 06/01/20 12:10 Hctz PO 25 mg QDAY JUDIT Administration Sodium Chloride 500 mls @ 50 mls/hr 06/02/20 09:00 Nacl 0.9% 500 Ml IV DIRECT JUDIT Isosorbide Mononitrate 60 mg 06/02/20 10:00 Imdur PO QDAY JUDIT Losartan Potassium 25 mg 06/01/20 10:00 06/01/20 12:10 Cozaar PO 25 mg QDAY JUDIT Administration Magnesium Hydroxide 30 ml 06/01/20 02:13 Milk Of Magnesia PO Q4H PRN Constipation Morphine Sulfate 2 mg 06/01/20 03:00 06/01/20 06:24 Morphine IV 2 mg Q5MIN PRN Administration Chest Pain Ondansetron HCl 4 mg 06/01/20 02:13 Zofran IV Q8H PRN Nausea And Vomiting Pravastatin Sodium 80 mg 06/01/20 22:00 06/01/20 22:55 Pravachol PO 80 mg QHS JUDIT Administration Sodium Chloride 10 ml 06/01/20 10:00 06/01/20 22:55 Sodium Chloride Flush Syringe 10 Ml IV 10 ml BID JUDIT Administration Sodium Chloride 10 ml 06/01/20 02:13 Sodium Chloride Flush Syringe 10 Ml IV PRN PRN LINE FLUSH Sotalol HCl 120 mg 06/01/20 10:00 06/01/20 22:55 Betapace PO 120 mg BID JUIDT Administration Ticagrelor 90 mg 06/02/20 22:00 Brilinta PO BID JUDIT
[2020-06-02] MEDS ORDERED: traMADol 50 MG TAB PO PRN (14:38)
--- NOTE | 2020-06-02 14:53 | Cardiac Catherization Report ---
PCI TO LEFT CIRCUMFLEX CORONARY ARTERY CLINICAL INFORMATION: The patient is a pleasant 60-year-old male admitted with a positive stress test along with the recent onset of chest pains consistent with unstable angina. He has a known history of coronary artery disease with a previous history of CABG, had a MEREDITH to LAD. Also, has multiple stents placed in the RCA system as well as LAD. Based on his clinical presentation, he was scheduled to have a heart catheterization today. The patient was " details are not available. After extensive discussion with the patient, my colleague Dr. Garcia performed a diagnostic cardiac catheterization, which showed severe disease involving the LCX system. Unable to selectively engage the RCA because of the stents extending into the ostial RCA into the aorta. I tried to engage the RCA as well with the multiple diagnostic catheters which include AL1, AL2, JR4, no torque AR1. Also tried 3D Right, not successful. However, nonselective angiograms of the RCA was obtained, which demonstrated flush occlusion of the ostium of the RCA. After reviewing the diagnostic angiographic images and had an extensive discussion with the patient as well as his , Marlen, agreed to pursue intervention to the left circumflex coronary artery. DESCRIPTION OF PROCEDURE: The right groin area was cleaned and draped in a sterile fashion. A 2% lidocaine was used for local anesthesia. The patient has a 5-[place] short sheath in the right common femoral artery, which is exchanged for a 6-Brazilian short sheath under sterile conditions. Subsequently, tried to selectively engage the right coronary artery with the multiple catheters I described above, not successful. However, nonselective angiograms demonstrated flush occlusion of the RCA stents. RCA stents are extending into the aorta from the ostium of the RCA. PCI to left circumflex coronary artery: The patient was given Angiomax during the procedure. A 6-[place]ian EBU 3.5 guiding catheter was used to selectively engage the left main coronary artery. A 0.014 BMW wire was used, subsequently the left circumflex coronary artery is predilated with a 2.5 balloon from distal to the proximal segments. The left circumflex coronary artery is stented from distal to the proximal segment with a 3.0 x 38 mm followed by 3.5 x 8 mm Resolute [place] drug-eluting stents in an overlapping fashion. These stents were postdilated with a 3.5 x 12 mm noncompliant balloon. Intracoronary nitroglycerin was given. Post-intervention angiographic images of the stented segments of the left circumflex coronary artery demonstrated residual stenosis of 0%. NATALIE 3 flow noted at the end of the procedure. The patient tolerated the procedure very well. ACCESS SITE -- Right common femoral artery area. The sheath is sutured, secured in place and transferred in hemodynamically stable state to the observation area. CONCLUSIONS: Successful percutaneous coronary intervention to left circumflex coronary artery with deployment of Resolute [place] drug-eluting stents in an overlapping fashion (3.0 x 38 mm and 3.5 x 8 mm Resolute [place] drug-eluting stents) with excellent results. RECOMMENDATIONS: 1. Aspirin 81 mg p.o. every day, uninterruptedly rest of the life. 2. Brilinta 90 mg p.o. b.i.d. at least for 1 year. 3. Continued aggressive cardiovascular risk factors modifications. All these events, findings and procedures were explained to the patient as well as his , Marlen, at phone number [phone]. JOB# [id number] MARYLOU/JADON
[2020-06-02] MEDS ORDERED: traMADol 50 MG TAB ONE (14:57)
[2020-06-02] MEDS ORDERED: MORPHINE 2 MG/1 ML INJ ONE ×2 (16:00→16:02)
[2020-06-02] MEDS: MORPHINE 2 MG/1 ML INJ IV PRN (16:02)
[2020-06-02] MEDS: HYDROmorphone 1 MG/1 ML INJ IV PRN ×2 (17:10→22:46)
[2020-06-02] MEDS: GEMFIBROZIL 600 MG TAB PO SCH ×2 (18:25→22:47)
[2020-06-02] MEDS: hydroCHLOROthiazide 25 MG TAB PO SCH (18:25)
[2020-06-02] MEDS: OMEGA-3 FATTY ACIDS/FISH OIL 1 GRAM CAP PO SCH (18:25)
[2020-06-02] MEDS: LOSARTAN 25 MG TAB PO SCH (18:26)
[2020-06-02] MEDS: PRAVASTATIN 80 MG TAB PO SCH (22:48)
[2020-06-02] MEDS: TICAGRELOR 90 MG TAB PO SCH (22:48)
[2020-06-03] MEDS: HEPARIN 5,000 UNIT/1 ML VIAL SUB-Q SCH ×2 (06:50→14:44)
[2020-06-03 07:17] LABS: BUN/Creatinine Ratio 17; Blood Urea Nitrogen 15 mg/dL (9-20); Calcium 9.6 mg/dL (8.4-10.2); Hemolysis Index 5
[2020-06-03] MEDS ORDERED: POTASSIUM CHLORIDE ER 20 MEQ TAB PO ONE (08:30)
[2020-06-03] MEDS: OMEGA-3 FATTY ACIDS/FISH OIL 1 GRAM CAP PO SCH (09:27)
[2020-06-03] MEDS: GEMFIBROZIL 600 MG TAB PO SCH (09:28)
[2020-06-03] MEDS: TICAGRELOR 90 MG TAB PO SCH (09:29)
[2020-06-03] MEDS: hydroCHLOROthiazide 25 MG TAB PO SCH (09:29)
[2020-06-03] MEDS: LOSARTAN 25 MG TAB PO SCH (09:29)
[2020-06-03 09:30] VITALS: BP 107/65
[2020-06-03] MEDS ORDERED: ASPIRIN 81 MG TAB CHEW PO SCH (10:00)
--- NOTE | 2020-06-03 10:31 | Discharge Summary ---
Providers - Providers Date of Admission: 06/01/20 01:28 Date of discharge: 06/03/20 Attending physician: SHELLEY MURPHY MD 06/01/20 Consult to Cardiac Rehabilitation [CONS] Routine Reason For Exam: Phase I 06/01/20 02:13 Consult to Cardiology [CONS] Routine Consulting Provider: ASHKAN JACOBSON Reason For Exam: chest pain 06/02/20 14:21 Consult to Cardiac Rehabilitation [CONS] Routine Reason For Exam: Cardiac Rehab Evaluation Primary care physician: SENIOR UNIX ADMINISTRATOR Hospitalization Reason for admission: Acute coronary syndrome Condition: Fair Hospital course: 60-year-old male with known history of hypertension, CHF, history of ND in the past with stent placement, history of CABG presented to the emergency room today complaining of chest pain. Chest pain is said to be substernal, constant but later became intermittent after taking some aspirin and sublingual nitroglycerin. He had associated shortness of breath, diaphoresis, nausea. He denies any vomiting no headache or dizziness, no abdominal pain. There is no known exacerbating factor. Work-up in the emergency room has not revealed any acute abnormality. Patient is being admitted for evaluation of his chest pain. Patient was admitted to the floor and stress test was done and which was abnormal. Cardiology consulted and did left heart cath PCI was done on the left circumflex artery, drug-eluting stent. Patient is doing well after the procedure, patient has history of CAD and also cardiac medications and Brilinta was added on his medication regimen and discharged home. Patient will follow with [facility] as an outpatient. Patient was hemodynamically stable at the time of discharge. Management plan was discussed in detail and patient understood the plan of care. Appropriate medication scripts were given at the time of discharge. Disposition: - TO HOME OR SELFCARE Time spent for discharge: 34 minutes - Discharge Diagnoses (1) Acute coronary syndrome without high troponin Status: Acute (2) Chest pain Status: Acute (3) Angina pectoris Status: Acute (4) Coronary artery disease Status: Acute Qualifiers: Coronary Disease-Associated Artery/Lesion type: [place] artery [place] vs. transplanted heart: [place] heart Associated angina: angina presence unspecified Qualified Code(s): I25.10 - Atherosclerotic heart disease of [place] coronary artery without angina pectoris (5) GARCIA (dyspnea on exertion) Status: Acute Core Measure Documentation - Palliative Care Palliative Care/ Comfort Measures: Not Applicable - Core Measures Any of the following diagnoses?: acute ND - Acute ND Discharge Requirements Aspirin at discharge: Yes JOSÉ MIGUEL/ARB for LVSD if EF <40%: Yes Beta timoteo at discharge: Yes Statin for LDL = or >100 mg/dl on DC: Yes Exam - Physical Exam Narrative exam: Not in cardiopulmonary distress. The patient is obese Vital signs as documented. Head exam is unremarkable. No scleral icterus . Neck is without jugular venous distension, thyromegaly, or carotid bruits. Lungs are clear to auscultation. Cardiac exam reveals regular rate and Rhythm. Abdominal exam reveals normal bowel sounds, nontender, no organomegaly. Extremities are nonedematous and both femoral and pedal pulses are normal. PHARMACY INNOVATION ASSISTANT: Alert and oriented 3. No focal weakness. - Constitutional Vitals: Temp Pulse Resp BP Pulse Ox 98.7 F 65 18 107/65 98 06/03/20 04:33 06/03/20 09:29 06/03/20 08:28 06/03/20 09:29 06/03/20 08:28 Plan Activity: no restrictions Weight Bearing Status: Full Weight Bearing Diet: low cholesterol Follow up with: PRIMARY MD FABIAN [Primary Care Provider] - 3-5 Days RACHELLE ROBISON MD [Staff Physician] - 7 Days Prescriptions: Ticagrelor [Brilinta] 90 mg PO BID #60 tablet
--- NOTE | 2020-06-03 12:07 | Progress Note ---
<LIBBY NASH - Last Filed: 06/03/20 12:04> Assessment and Plan Chronic angina s/p PCI of the left Cx on Brilinta and aspirin Hx of CAD with 1 vessel CABG, robotic MEREDITH to LAD, in 2017. plavix allergy Hx of paroxysmal atrial fibrillation on sotalol for suppression. previously considered a poor candidate for anticoagulation due to prior GI bleed Hx of ischemic cardiomyopathy LVEF 30-35% by echo this presentation Presence of AICD Hypertension Recommendations: Continue guideline directed medical therapy for coronary artery disease, ischemic cardiomyopathy and paroxysmal atrial fibrillation. Advised compliance with DAPT. Stable for discharge today. Patient will follow up in our office within 1 week. Subjective Date of service: 06/03/20 Interval history: Patient denies chest pain and shortness of breath. Denies lower back pain. No edema or redness of cardiac cath site. Objective Vital Signs Temp Pulse Pulse Resp BP Pulse Ox 06/03/20 09:29 65 107/65 06/03/20 09:28 65 107/65 06/03/20 09:27 65 107/65 06/03/20 08:28 78 18 98 06/03/20 04:33 98.7 F 69 16 112/75 94 06/02/20 23:00 83 06/02/20 22:47 83 116/79 06/02/20 22:43 99.2 F 06/02/20 22:42 83 18 116/79 92 06/02/20 22:36 87 94 06/02/20 22:33 89 20 123/83 93 06/02/20 22:00 66 18 98 06/02/20 19:15 72 127/75 92 06/02/20 19:00 78 133/103 06/02/20 18:45 71 153/84 95 06/02/20 18:30 78 78 18 165/88 95 06/02/20 18:26 80 148/91 06/02/20 18:25 80 148/91 06/02/20 18:11 133/87 06/02/20 18:10 71 95 06/02/20 17:42 73 11 L 138/88 97 06/02/20 17:40 68 18 145/83 97 06/02/20 17:35 66 13 146/94 98 06/02/20 17:30 67 12 137/86 99 06/02/20 17:26 73 12 147/85 98 10/08/20 17:10 13 06/02/20 17:00 63 14 156/90 98 06/02/20 16:32 16 06/02/20 16:30 63 16 171/94 96 06/02/20 16:02 12 06/02/20 16:00 65 15 132/82 98 06/02/20 15:57 12 06/02/20 15:30 61 13 137/76 96 06/02/20 15:15 62 12 148/85 97 06/02/20 15:00 58 L 12 138/89 96 06/02/20 14:57 18 06/02/20 14:45 67 18 136/86 97 06/02/20 14:42 98.6 F 64 17 140/89 99 06/02/20 12:15 61 12 124/85 96 - Physical Examination General: No Apparent Distress HEENT: Positive: PERRL Neck: Positive: trachea midline Cardiac: Positive: Reg Rate and Rhythm Lungs: Positive: Decreased Breath Sounds Neuro: Positive: Grossly Intact Incision: Cardiac Cath Site Extremities: Absent: edema - Labs and Meds Comprehensive Metabolic Panel 06/03/20 Range/Units 05:15 Sodium 137 (137-145) mmol/L Potassium 3.4 L (3.6-5.0) mmol/L Chloride 95.9 L (98-107) mmol/L Carbon Dioxide 29 (22-30) mmol/L BUN 15 (9-20) mg/dL Creatinine 0.9 (0.8-1.3) mg/dL Glucose 164 H (75-100) mg/dL Calcium 9.6 (8.4-10.2) mg/dL <RACHELLE ROBISON Last Filed: 06/06/20 07:22> Assessment and Plan I SAW THIS PT & AGREE WITH THE Dx & Tx PLAN
== END 2020-06-03 14:48 | disposition home or self-care (01) ==
LOC: ED 21:16 → 4A 06-01 01:28
PROVIDERS: ADMIT Internal Medicine Geriatric Medicine; ATTEND Internal Medicine
DX: R07.89 Other chest pain (principal); I25.10 Atherosclerotic heart disease of native coronary artery without angina pectoris; I11.0 Hypertensive heart disease with heart failure; I50.9 Heart failure, unspecified; I25.2 Old myocardial infarction; E78.5 Hyperlipidemia, unspecified; I48.0 Paroxysmal atrial fibrillation; Z90.49 Acquired absence of other specified parts of digestive tract; Z95.1 Presence of aortocoronary bypass graft; Z98.890 Other specified postprocedural states; Z87.891 Personal history of nicotine dependence; Z79.82 Long term (current) use of aspirin; Z95.0 Presence of cardiac pacemaker
CPT/HCPCS: 36415; 71045; 78452; 80048; 82962; 84484; 85025; 85610; 93005; 93017; 93306; 93459; 96372; 96374; 96375; 96376; 99285; A9270; A9502; C1725; C1769; C1874; C1887; C1894; C9600; G0378; J0583; J1170; J1644; J2001; J2250; J2270; J2405; J2785; J3010; J7040; 92928; J0171; J0461; J2370; Q9967